=== PATIENT | female | born 1980 | race American Indian/Alaskan Native ===

== ENCOUNTER 2016-10-25 01:23 | Inpatient (IN) | payer MEDICAID ==
[2016-10-25] MEDS ORDERED: LACTATED RINGERS 500 ML IV ONE (02:08)
[2016-10-25 02:30] LABS: Bacteria,Urine 1+ /HPF (Negative); Bilirubin,Urine NEG (Negative); Blood,Urine MOD (Negative); Ketones,Urine NEG (Negative); Leukocyte Esterase,Urine NEG (Negative); Mucus,Urine FEW /HPF; Nitrite,Urine NEG (Negative)
[2016-10-25 03:44] LABS: Hematocrit 25.7 % (30.3-42.9); Hemoglobin 8.6 gm/dl (10.1-14.3); Mean Corpuscular HGB Conc 33 % (30-34); Mean Corpuscular Hemoglobin 34 pg (28-32); Mean Corpuscular Volume 100 fl (79-97); Red Blood Count 2.56 M/mm3 (3.65-5.03); Red Cell Distribution Width 15.5 % (13.2-15.2); White Blood Count 8.8 K/mm3 (4.5-11.0)
[2016-10-25 03:58] LABS: Alanine Aminotransferase 7 units/L (7-56)
[2016-10-25 04:13] LABS: Platelet Count 95 K/mm3 (140-440)
[2016-10-25 04:23] LABS: Lactate Dehydrogenase 159 units/L (91-180); Uric Acid 4.4 mg/dL (3.5-7.6)
[2016-10-25 06:51] LABS: Urine Drugs of Abuse Note Disclamer
[2016-10-25] MEDS ORDERED: LACTATED RINGERS 1,000 ML ONE (07:29)
[2016-10-25] MEDS ORDERED: MAGNESIUM SULFATE 4GM/100ML 100 ML IV ONE ×2 (07:30→07:41)
[2016-10-25] MEDS ORDERED: MAGNESIUM SULFATE 40GM/1000ML 1,000 ML IV ONE (07:30)
[2016-10-25] MEDS ORDERED: NORMODYNE IV PRN (07:41)
[2016-10-25] MEDS ORDERED: MILK OF MAGNESIA PO PRN (07:41)
[2016-10-25] MEDS ORDERED: ZOFRAN IV PRN (07:41)
[2016-10-25] MEDS ORDERED: APRESOLINE IV PRN (07:41)
[2016-10-25] MEDS ORDERED: MAGNESIUM SULFATE 40GM/1000ML 1,000 ML IV SCH (07:41)
[2016-10-25] MEDS ORDERED: MYLICON PO PRN (07:41)
[2016-10-25] MEDS ORDERED: DEEP SEA NS PRN (07:41)
[2016-10-25] MEDS ORDERED: TUCKS PAD TP PRN (07:41)
[2016-10-25] MEDS ORDERED: COLACE PO PRN (07:41)
[2016-10-25] MEDS ORDERED: ALUM-MAG HYDROX-SIMETH 200-200-20MG/5ML PO PRN (07:41)
[2016-10-25] MEDS ORDERED: AMBIEN PO PRN ×2 (07:41→11:40)
[2016-10-25] MEDS ORDERED: LACTATED RINGERS 1,000 ML IV SCH (07:41)
--- NOTE | 2016-10-25 07:50 | History and Physical Report ---
History of Present Illness Date of examination: 10/25/16 Chief complaint: IUP@28 weeks, elevated BP's w/ HTN, KONG, AMA History of present illness: Past History : 9 Term Births: 5 Living Children: 5 Para: 5 Aborta: 2 Elect. Ab: 1 Spont. Ab: 1 # 1 Delivery date: 1994 Weeks Gestation: ft labor: no Delivery type: Infant Sex: Male Comments: 7-6 # 2 Delivery date: 1997 Weeks Gestation: ft labor: no Delivery type: Sex: Female weight: 7-15 # 3 Delivery date: 1997 Delivery type: EAB # 4 Delivery date: 2000 Weeks Gestation: ft labor: no Delivery type: Sex: Male weight: 7-2 Comments: SC trait # 5 Delivery date: 2002 Weeks Gestation: 16 Delivery type: SAB Comments: measured 10 wks, +D&C # 6 Delivery date: 2003 Weeks Gestation: ft Delivery type: Sex: Male weight: 6-8 # 7 Delivery date: 2006 Weeks Gestation: ft labor: no Delivery type: Infant Sex: Male weight: 6-4 #8 SAB Past Medical History: Hypertension-tx with Lisinopril 10mg in past, not on now, did not like Past Surgical History: negative Past Medical History Anesthesia Complications: negative Anemia: negative Autoimmune Disorder: negative Bleeding Disorder: negative Blood Transfusions: negative Breast Disease: negative Diabetes: negative Heart Disease: negative Hypertension: positive Hepatitis/Liver Disease: negative Kidney Disease/UTI: negative Neurologic/Epilepsy/Migraines: negative Phlebitis/Varicosities: negative Psychiatric: negative Pulmonary Disease/Asthma: negative Thyroid Disease: negative Hospitalizations: negative Surgery (Non-powder loader): negative Abnormal PAP: negative ROSSI Exposure: negative Infertility: negative Uterine Anomaly: negative Uterine Surgery (not C/S): negative Other Gynecologic Problems: negative Social Hx: Patient is +smoker no e/d Infection History Hx of STD: chlamydia HIV Risk Eval: low risk Hepatitis B Risk Eval: low risk Personal hx. of genital herpes: no Partner hx. of genital herpes: no Varicella/Chicken Pox Status: Previous Disease TB Risk: no Genetic History ADVANCED MATERNAL AGE Congenital Heart Defect: Mom: no Dad: no Khadra Disease: Mom: no Dad: no Thalassemia Mom: no Dad: no Neural Tube Defect Mom: no Dad: no Down's Syndrome Mom: no Dad: no Humberto-Sachs Mom: no Dad: no Sickle Cell Disease/Trait Mom: no Dad: no Hemophilia Mom: no Dad: no Muscular Dystrophy Mom: no Dad: no Cystic Fibrosis Mom: no Dad: no Doreen Chorea Mom: no Dad: no Mental Retardation Mom: no Dad: no Fragile X Mom: no Dad: no Other Genetic/Chromosomal Disorder Mom: no Dad: no Child w/other defect Mom: no Dad: no Enviromental Exposures Xray Exposure: no Medication, drug, or alcohol use since LMP: yes Chemical/Other Exposure: no Exposure to Cat Liter: no Comments: didn't know Active Medications (reviewed today): None Current Allergies (reviewed today): No known allergies Past History Social history: smoking, other (+marijuana) - Obstetrical History : 9 Medications and Allergies Allergies Allergy/AdvReac Type Severity Reaction Status Date / Time No Known Allergies Allergy Verified 07/12/15 00:20 Home Medications Medication Instructions Recorded Confirmed Last Taken Type Vit-Fe Fumar-FA [ 1 tab PO QDAY 10/25/16 10/25/16 10/24/16 History Vitamin] Active Meds: Active Medications Acetaminophen (Tylenol) 650 mg PO Q4H PRN PRN Reason: Pain MILD(1-3)/Fever >100.5/KONG Al Hydrox/Mg Hydrox/Simethicone (Alum-Mag Hydrox-Simeth [phone]/5ml) 30 ml PO Q6H PRN PRN Reason: Indigestion Betamethasone Acet/Betameth SodPhos (Celestone Soluspan) 12 mg IM Q24HR OLIVIER Stop: 10/26/16 10:01 Docusate Sodium (Colace) 100 mg PO Q12H PRN PRN Reason: Constipation Hydralazine HCl (Apresoline) 5 mg IV Q30MIN PRN PRN Reason: Hypertension Lactated Ringer's (Lactated Ringers) 1,000 mls @ 125 mls/hr IV DIRECT OLIVIER Lactated Ringer's (Lactated Ringers) 1,000 mls @ 125 mls/hr IV DIRECT OLIVIER Magnesium Sulfate (Magnesium Sulfate 40gm/1000ml) 1,000 mls @ 25 mls/hr IV TITR OLIVIER; 1 GM/HR PRN Reason: Protocol Stop: 10/26/16 07:40 Magnesium Sulfate (Magnesium Sulfate 4gm/100ml) 100 mls @ 300 mls/hr IV ONCE ONE Stop: 10/25/16 08:00 Labetalol HCl (Normodyne) 20 mg IV ONCE PRN PRN Reason: Hypertension Stop: 10/25/16 07:42 Magnesium Hydroxide (Milk Of Magnesia) 30 ml PO QHS PRN PRN Reason: Laxative Effect Multivitamins/Iron/Calcium ( Vitamin) 1 each PO QDAY OLIVIER Ondansetron HCl (Zofran) 4 mg IV Q6H PRN PRN Reason: Nausea And Vomiting Simethicone (Mylicon) 80 mg PO Q6H PRN PRN Reason: Gas pain Sodium Chloride (Deep Sea) 2 spray NS Q4H PRN PRN Reason: Congestion Witch Constance/Glycerin (Tucks Pad) 1 each TP PRN PRN PRN Reason: Hemorrhoids Zolpidem Tartrate (Ambien) 5 mg PO QHS PRN PRN Reason: Sleep Review of Systems All systems: negative Constitutional: weight gain Neurological: headaches - Vital Signs Vital signs: Vital Signs Temp Pulse BP 98.7 F 96 H 134/80 10/25/16 01:58 10/25/16 01:58 10/25/16 01:58 Temp Pulse Resp BP Pulse Ox 98.8 F 97 H 18 116/59 100 10/25/16 05:44 10/25/16 07:41 10/25/16 05:44 10/25/16 07:18 10/25/16 07:41 - Physical Exam Breasts: Positive: deferred Cardiovascular: Regular rate Lungs: Positive: Clear to auscultation, Normal air movement Abdomen: Positive: normal appearance, soft, normal bowel sounds. Negative: tenderness Genitourinary (Female): Positive: normal external genitalia Uterus: Positive: normal size Extremities: Positive: normal. Negative: tenderness, edema Deep Tendon Reflex Grade: Normal +2 - Obstetrical FHR: category 1 Uterine Contraction Monitor Mode: External Uterine Contraction Pattern: Absent Results Result Diagrams: 10/25/16 03:11 10/25/16 03:11 Abnormal lab results 10/25/16 10/25/16 Range/Units 03:11 03:11 RBC 2.56 L (3.65-5.03) M/mm3 Hgb 8.6 L (10.1-14.3) gm/dl Hct 25.7 L (30.3-42.9) % MCV 100 H (79-97) fl MCH 34 H (28-32) pg RDW 15.5 H (13.2-15.2) % Plt Count 95 L (140-440) K/mm3 Creatinine 0.3 L (0.7-1.2) mg/dL All other labs normal. Assessment and Plan - Patient Problems (1) 28 weeks gestation of Current Visit: Yes Status: Acute (2) Hypertension affecting in third trimester Current Visit: Yes Status: Acute Plan to address problem: MFM consult Celestone 24hr urine NICU consult MgSO4 for neuroprotection (3) Thrombocytopenia affecting , antepartum Current Visit: Yes Status: Acute (4) Marijuana smoker, episodic Current Visit: Yes Status: Acute (5) Smoker Current Visit: Yes Status: Acute Plan to address problem: Encouraged to stop smoking (6) AMA (advanced maternal age) multigravida 35+ Current Visit: Yes Status: Acute Plan to address problem: Instructed to stop using marijuana (7) Proteinuria affecting in third trimester Current Visit: Yes Status: Chronic Plan to address problem: TP in 10/03/2016=802mg/24hr
[2016-10-25] MEDS ORDERED: CELESTONE SOLUSPAN IM SCH (10:00)
[2016-10-25] MEDS: PRENATAL VITAMIN PO SCH (10:00)
[2016-10-25] MEDS: TYLENOL PO PRN (14:00)
[2016-10-25] MEDS: LACTATED RINGERS 1,000 ML IV SCH (17:54)
--- NOTE | 2016-10-25 19:00 | Event Note ---
Date: 10/25/16 Pt seen by and current recommendations are as follows: 1)d/c magnesium sulfate 2)complete 24 hr urine 3)dx of superimposed pre E 4)Sono for EFW- ordered by has not been done yet. Full consult to follow. Orders noted on the chart.
[2016-10-25 19:17] LABS: Hematocrit 30.2 % (30.3-42.9); Hemoglobin 10.3 gm/dl (10.1-14.3); Mean Corpuscular HGB Conc 34 % (30-34); Mean Corpuscular Hemoglobin 34 pg (28-32); Mean Corpuscular Volume 101 fl (79-97); Platelet Count 105 K/mm3 (140-440); White Blood Count 8.6 K/mm3 (4.5-11.0)
[2016-10-26] MEDS: TYLENOL PO PRN (01:00)
[2016-10-26] MEDS: LACTATED RINGERS 1,000 ML IV SCH (04:11)
--- NOTE | 2016-10-26 09:27 | Progress Note ---
Assessment and Plan A: 1. 28 5/7 weeks gestation 2. Chronic HTN w/ super-imposed pre-eclampsia ( repeat 24 hr urine TP 1248mg/dl) 3. Anemia 4. Thrombocytopenia ( Plt count 10/03/2016 167,000 -> 10/25/2016 105,000 ) 4. AMA 5. Tobacco use Recommendations 1. US report is pending 2. No current indication for BP meds 3. If the maternal and status is reassuring , consider outpatient weekly testing 4. Delivery is recommended no later than 37 weeks gestation , advised that a sooner delivery may be indicated if there is a change in the maternal/ status 5. Potential maternal and complications associated with superimposed preeclampsia , need for close surveillance and possible delivery was discussed.Preeclampsia precautions and kick count instructions were reviewed. All questions were answered and she stated understanding . 6. Iron replacement therapy 7. Weekly CBC , CMP Next appt at [facility] is 11/02/2016 @ 1115am Subjective - Subjective Date of service: 10/26/16 Principal diagnosis: IUP at 28 5/7 weeks gestation , CHTN with superimposed preeclampsia Interval history: She has no complaints Denied KONG visual changes CP RUQ pain, decreased or absent FM, LOF , contractions ,bleeding Patient reports: new complaints Objective - Vital Signs Vital Signs: Vital Signs - 12hr 10/25/16 10/25/16 10/25/16 21:17 21:41 22:42 Temperature Pulse Rate 86 93 H 90 Pulse Rate [ From Monitor] Respiratory Rate Blood Pressure 138/84 137/84 139/71 Blood Pressure [Left Arm] O2 Sat by Pulse Oximetry 10/25/16 10/26/16 10/26/16 23:40 00:41 01:40 Temperature Pulse Rate 85 93 H 81 Pulse Rate [ From Monitor] Respiratory Rate Blood Pressure 120/65 143/91 116/67 Blood Pressure [Left Arm] O2 Sat by Pulse Oximetry 10/26/16 10/26/16 10/26/16 02:51 03:40 07:57 Temperature Pulse Rate 80 79 84 Pulse Rate [ From Monitor] Respiratory Rate Blood Pressure 104/57 114/65 130/81 Blood Pressure [Left Arm] O2 Sat by Pulse Oximetry 10/26/16 10/26/16 09:05 09:07 Temperature 97.5 F L Pulse Rate 80 Pulse Rate [ 60 From Monitor] Respiratory 18 Rate Blood Pressure 152/86 Blood Pressure 130/81 [Left Arm] O2 Sat by Pulse 98 Oximetry - Exam Narrative Exam: laying in bed NAD , A&O x 3 Abdomen: Present: normal appearance, soft (non tender no palpable contractions ) Extremities: normal (no c/c/e) - Labs Labs: Abnormal Labs 10/25/16 10/25/16 10/25/16 03:11 03:11 12:45 RBC 2.56 L Hgb 8.6 L Hct 25.7 L MCV 100 H MCH 34 H RDW 15.5 H Plt Count 95 L Creatinine 0.3 L Magnesium 3.1 H Ur Total Protein 24 Hr Urine Total Protein 10/25/16 10/26/16 18:45 05:15 RBC 3.00 L Hgb Hct 30.2 L MCV 101 H MCH 34 H RDW 16.0 H Plt Count 105 L Creatinine Magnesium Ur Total Protein 24 Hr 1248.00 H Urine Total Protein 32 H Laboratory Results - last 24 hr 10/25/16 10/25/16 10/25/16 01:50 08:16 12:45 WBC RBC Hgb Hct MCV MCH MCHC RDW Plt Count Magnesium 3.1 H Urine Total Volume Ur Total Protein 24 Hr Urine Total Protein Urine Opiates Screen Presumptive negative Urine Methadone Screen Presumptive negative Ur Barbiturates Screen Presumptive negative Ur Phencyclidine Scrn Presumptive negative Ur Amphetamines Screen Presumptive negative U Benzodiazepines Scrn Presumptive negative Urine Cocaine Screen Presumptive negative U Marijuana (THC) Screen Presumptive positive Drugs of Abuse Note Disclamer Antibody Screen Negative 10/25/16 10/26/16 18:45 05:15 WBC 8.6 RBC 3.00 L Hgb 10.3 Hct 30.2 L MCV 101 H MCH 34 H MCHC 34 RDW 16.0 H Plt Count 105 L Magnesium Urine Total Volume 3900 Ur Total Protein 24 Hr 1248.00 H Urine Total Protein 32 H Urine Opiates Screen Urine Methadone Screen Ur Barbiturates Screen Ur Phencyclidine Scrn Ur Amphetamines Screen U Benzodiazepines Scrn Urine Cocaine Screen U Marijuana (THC) Screen Drugs of Abuse Note Antibody Screen - Results US- obstetric: pending, image reviewed (SIUP , Cephalic FHR 148bpm EFW 1219gm ( 58%), ant placenta no previa , BPP 8/8)
[2016-10-26] MEDS: PRENATAL VITAMIN PO SCH (10:00)
--- NOTE | 2016-10-26 13:09 | Progress Note ---
Assessment and Plan - Patient Problems (1) 28 weeks gestation of Current Visit: Yes Status: Acute Plan to address problem: 1. US report is pending Preliminary report reviewed 2. No current indication for BP meds 3. If the maternal and status is reassuring , consider outpatient weekly testing 4. Delivery is recommended no later than 37 weeks gestation , advised that a sooner delivery may be indicated if there is a change in the maternal/ status 5. Potential maternal and complications associated with superimposed preeclampsia , need for close surveillance and possible delivery was discussed.Preeclampsia precautions and kick count instructions were reviewed. All questions were answered and she stated understanding . 6. Iron replacement therapy 7. Weekly CBC , CMP (2) Pre-eclampsia superimposed on chronic hypertension, antepartum Current Visit: Yes Status: Acute Plan to address problem: Recheck labs today, possibly allow home if stable ACOG FAQ's sheet given:Preeclampsia and High Blood Pressure During (3) Thrombocytopenia affecting , antepartum Current Visit: Yes Status: Acute (4) Marijuana smoker, episodic Current Visit: Yes Status: Acute Plan to address problem: Instructed to stop using marijuana ACOG FAQ's sheet given:Tobacco, Alcohol, Drugs, and (5) Smoker Current Visit: Yes Status: Acute Plan to address problem: Hazards of smoking and reviewed; smoking cessation strongly encouraged and smoking cessation techniques reviewed. (6) AMA (advanced maternal age) multigravida 35+ Current Visit: Yes Status: Acute Subjective - Subjective Date of service: 10/26/16 Principal diagnosis: IUP at 28 5/7 weeks gestation , CHTN with mild PreE, low plts Interval history: Patient resting in bed, no complaints Patient reports: movement normal, no new complaints, no loss of fluid, no vaginal bleeding, no contractions Objective - Vital Signs Vital Signs: Vital Signs - 12hr 10/26/16 10/26/16 10/26/16 01:40 02:51 03:40 Temperature Pulse Rate 81 80 79 Pulse Rate [ From Monitor] Respiratory Rate Blood Pressure 116/67 104/57 114/65 Blood Pressure [Left Arm] O2 Sat by Pulse Oximetry 10/26/16 10/26/16 10/26/16 07:57 09:05 09:07 Temperature 97.5 F L Pulse Rate 84 80 Pulse Rate [ 60 From Monitor] Respiratory 18 Rate Blood Pressure 130/81 152/86 Blood Pressure 130/81 [Left Arm] O2 Sat by Pulse 98 Oximetry 10/26/16 10/26/16 10/26/16 09:40 10:41 11:42 Temperature Pulse Rate 80 90 97 H Pulse Rate [ From Monitor] Respiratory Rate Blood Pressure 147/85 147/91 141/104 Blood Pressure [Left Arm] O2 Sat by Pulse Oximetry 10/26/16 10/26/16 10/26/16 12:29 12:32 12:40 Temperature Pulse Rate 86 94 H Pulse Rate [ From Monitor] Respiratory Rate Blood Pressure 135/79 143/86 Blood Pressure 135/77 [Left Arm] O2 Sat by Pulse Oximetry - Exam Breasts: deferred Cardiovascular: Regular rate Lungs: Clear to auscultation, Normal air movement Abdomen: Present: normal appearance, soft FHR: category 1 Uterine Contraction Monitor Mode: External - Labs Labs: Abnormal Labs 10/25/16 10/25/16 10/25/16 03:11 03:11 12:45 RBC 2.56 L Hgb 8.6 L Hct 25.7 L MCV 100 H MCH 34 H RDW 15.5 H Plt Count 95 L Creatinine 0.3 L Magnesium 3.1 H Ur Total Protein 24 Hr Urine Total Protein 10/25/16 10/26/16 18:45 05:15 RBC 3.00 L Hgb Hct 30.2 L MCV 101 H MCH 34 H RDW 16.0 H Plt Count 105 L Creatinine Magnesium Ur Total Protein 24 Hr 1248.00 H Urine Total Protein 32 H Laboratory Results - last 24 hr 10/25/16 10/25/16 10/26/16 12:45 18:45 05:15 WBC 8.6 RBC 3.00 L Hgb 10.3 Hct 30.2 L MCV 101 H MCH 34 H MCHC 34 RDW 16.0 H Plt Count 105 L Magnesium 3.1 H Urine Total Volume 3900 Ur Total Protein 24 Hr 1248.00 H Urine Total Protein 32 H
[2016-10-26 13:50] LABS: Hematocrit 28.8 % (30.3-42.9); Hemoglobin 9.6 gm/dl (10.1-14.3); Mean Corpuscular HGB Conc 33 % (30-34); Mean Corpuscular Hemoglobin 33 pg (28-32); Mean Corpuscular Volume 99 fl (79-97); Platelet Count 100 K/mm3 (140-440); Red Blood Count 2.91 M/mm3 (3.65-5.03); Red Cell Distribution Width 15.5 % (13.2-15.2); White Blood Count 6.1 K/mm3 (4.5-11.0)
[2016-10-26] MEDS ORDERED: CELESTONE SOLUSPAN IM ONE (14:00)
[2016-10-26 14:20] LABS: Alanine Aminotransferase 9 units/L (7-56)
--- NOTE | 2016-10-26 16:01 | Ultrasound Report ---
OB ULTRASOUND: Transabdominal imaging. Gestation: gusman Position: cephalic Amniotic Fluid: WNL (7-24 cm) CRISTINA = 18.8 cm Placenta: anterior Placental Grade: I Heart Rate: 148 BPM Cervical length: 3.2 cm (Normal > 3 cm) NEUROANATOMY VISUALIZED: Choroid Plexus Lateral Ventricle ANATOMY VISUALIZED: Kidneys Bladder 4 Chamber Heart Heart 3 Vessel Cord Abd. Cord Insert SPINE VISUALIZED: Longitudinal Transverse The following are not demonstrated due to maternal body habitus or lie: stomach and diaphragm. BPD: 7.1 cm = 28 w 4 d HC: 26.8 cm = 29 w 1 d AC: 23.8 cm = 28 w 1 d FL: 5.4 cm = 28 w 4 d HC/AC Ratio: 1.12 Cephalic Index: 81.4 Estimated Weight: 1219 grams Clinical age = 28 w 4 d EDC: 01-13-17 US Gest. Age = 28 w 4 d EDC: 01-13-17 COMMENT: No gestational abnormality identified. BIOPHYSICAL PROFILE: 2 - breathing movements 2 - movements 2 - posture and tone 2 - Qualitative amniotic fluid volume 8 - TOTAL SCORE OF POSSIBLE 8 Heart Rate (bpm) 148
--- NOTE | 2016-10-26 17:24 | Event Note ---
Date: 10/26/16 Patient now states she has no where to live, her current living situation is not working. a p manager consult ordered
[2016-10-26 21:43] LABS: Lactate Dehydrogenase 213 units/L (91-180); Uric Acid 5.3 mg/dL (3.5-7.6)
--- NOTE | 2016-10-27 09:20 | Discharge Summary ---
Providers - Providers Date of Admission: 10/25/16 06:49 Date of discharge: 10/27/16 Attending physician: EVY ASHER 10/25/16 07:48 Consult to Physician [CONS] Routine Consulting Provider: BRIAN LORENZO Reason For Exam: chtn, KONG with low platlets Place consult to:: [facility] Notified:: OFFICE Phone number called:: [phone] Was contact made?: Yes If yes, spoke with:: Talia 10/25/16 08:05 Consult to Physician [CONS] Routine Consulting Provider: ARPIT TURNER Reason For Exam: CHTN @ [address] consult to:: NICU consult Notified:: GODWIN Was contact made?: Yes If yes, spoke with:: Madison hamm, spoke with JANIS Freeman in NICU Time called:: 08:06 10/26/16 17:24 Consult to Case Management [CONS] Routine 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 Primary care physician: EVY ASHER Hospitalization Reason for admission: observation (CHTN with superimposed pre-e, mild) Discharge diagnosis: other (HTN with wuperimposed pre-eclampsia) Condition at discharge: Good Disposition: DISCHARGED TO HOME OR SELFCARE - Discharge Diagnoses (1) 28 weeks gestation of Status: Acute (2) AMA (advanced maternal age) multigravida 35+ Status: Acute (3) Marijuana smoker, episodic Status: Acute (4) Pre-eclampsia superimposed on chronic hypertension, antepartum Status: Acute (5) Smoker Status: Acute (6) Thrombocytopenia affecting , antepartum Status: Acute (7) Proteinuria affecting in third trimester Status: Chronic Plan - Provider Discharge Summary Activity: routine Instructions: routine Additional instructions: [] Smoking cessation referral if applicable(refer to patient education folder for contact #) [] Refer to [facility] Book[facility] Call your doctor immediately for: * Fever > 100.5 * Heavy vaginal bleeding ( >1 pad per hour) * Severe persistent headache * Shortness of breath * Reddened, hot, painful area to leg or breast - Follow up plan Follow up: EVY ASHER MD [Primary Care Provider] - 10/30/16 11:15 am (An appointment as been made for you in our [place] office for October 30 @ 11:15AM. Please report an headache, change in vision or upper abdominal pain. Keep next scheduled appointment with [facility]. ) Forms: [facility] Discharge Summary
[2016-10-27 09:36] VITALS: BP 147/83
== END 2016-10-27 09:30 | disposition home or self-care (01) | DRG 781 ==
LOC: TRG 01:23 → LD 05:12 → TRG 06:49
PROVIDERS: ADMIT Obstetrics & Gynecology; ATTEND Obstetrics & Gynecology
DX: O11.3 Pre-existing hypertension with pre-eclampsia, third trimester (principal); O09.523 Supervision of elderly multigravida, third trimester; O99.113 Other diseases of the blood and blood-forming organs and certain disorders involving the immune mechanism complicating pregnancy, third trimester; O99.333 Smoking (tobacco) complicating pregnancy, third trimester; F17.290 Nicotine dependence, other tobacco product, uncomplicated; F12.90 Cannabis use, unspecified, uncomplicated; D69.6 Thrombocytopenia, unspecified; F17.200 Nicotine dependence, unspecified, uncomplicated; Z3A.28 28 weeks gestation of pregnancy; O99.323 Drug use complicating pregnancy, third trimester; O10.913 Unspecified pre-existing hypertension complicating pregnancy, third trimester
CPT/HCPCS: 36415; 76805; 76819; 80307; 81001; 82565; 83615; 83735; 84156; 84450; 84460; 84550; 85027; 86850; 86900; 86901; J0702; J3475; J7120

== ENCOUNTER 2016-11-18 03:47 | Inpatient (IN) | payer MEDICAID ==
[2016-11-18] MEDS ORDERED: LACTATED RINGERS 500 ML IV ONE (04:20)
[2016-11-18 05:01] LABS: Bacteria,Urine 4+ /HPF (Negative); Bilirubin,Urine NEG (Negative); Blood,Urine MOD (Negative); Ketones,Urine NEG (Negative); Leukocyte Esterase,Urine NEG (Negative); Mucus,Urine FEW /HPF; Nitrite,Urine NEG (Negative); Urobilinogen,Urine < 2.0 mg/dL (<2.0)
[2016-11-18 06:21] LABS: Hematocrit 28.4 % (30.3-42.9); Hemoglobin 9.7 gm/dl (10.1-14.3); Mean Corpuscular HGB Conc 34 % (30-34); Mean Corpuscular Hemoglobin 34 pg (28-32); Mean Corpuscular Volume 101 fl (79-97); Red Blood Count 2.82 M/mm3 (3.65-5.03); Red Cell Distribution Width 16.4 % (13.2-15.2); White Blood Count 10.9 K/mm3 (4.5-11.0)
[2016-11-18 06:29] LABS: Platelet Count 86 K/mm3 (140-440)
[2016-11-18 06:58] LABS: Alanine Aminotransferase 7 units/L (7-56)
[2016-11-18 07:59] LABS: Lactate Dehydrogenase 315 units/L (91-180); Uric Acid 5.7 mg/dL (3.5-7.6)
[2016-11-18] MEDS ORDERED: COLACE PO PRN (10:23)
[2016-11-18] MEDS ORDERED: ZOFRAN IV PRN (10:23)
[2016-11-18] MEDS ORDERED: MILK OF MAGNESIA PO PRN (10:23)
[2016-11-18] MEDS ORDERED: ALUM-MAG HYDROX-SIMETH 200-200-20MG/5ML PO PRN (10:23)
--- NOTE | 2016-11-18 10:23 | History and Physical Report ---
History of Present Illness Date of examination: 11/18/16 Date of admission: 11/18/2016 Chief complaint: 36 yo A3 at 32 weeks EGA who came to L&D for "high blood pressure" at home. She has been followed with social issues (homeless?) and CHTN with superimposed PreE based on a 24 hr urine done previously and known thrombocytopenia. She appears to have a UTI today and has a sore back from driving all the way back from [place]. She has no other complaints and no s/sx of Pre Eclampsia Will repeat 24 hour urine with Walker catheter (since last one done without one I believe) Her BP is fine here, has UTI but platelet count is 86,000 Received 2 doses of steroids 10/25-10/26 History of present illness: 1. 32 weeks 0 days EGA 2. Chronic HTN w/ super-imposed pre-eclampsia ( lasty 24 hr urine TP 1248mg/dl) 3. Anemia 4. Thrombocytopenia ( Plt count 10/03/2016 167,000 -> 10/25/2016 105,000 --> 86,000 ) 4. AMA 5. Tobacco use Remainder of Hx from MPV Vital Signs Height: 67 in. Weight (lb): 160 BMI: 25.1 BP: 122/ 76 mm Hg Ur. Protein: negative Ur. 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 no EDC Calculations LMP: 04/08/16 yields EDC of 01/13/2017 Initial exam (date): 06/14/2016 = 10 Exam: 01/10/2017 EDC Confirmation: 01/13/2017 Gestational Age: 9 4/7 weeks LMP: 01/13/2017 EDC Confirmation: 01/13/2017 Past History : 9 Term Births: 5 Living Children: 5 Para: 5 Aborta: 2 Elect. Ab: 1 Spont. Ab: 1 Ectopics: 1 # 1 Delivery date: 1994 Weeks Gestation: ft labor: no Delivery type: Sex: Male Comments: 7-6 # 2 Delivery date: 1997 Weeks Gestation: ft labor: no Delivery type: Sex: Female weight: 7-15 # 3 Delivery date: 1997 Delivery type: EAB # 4 Delivery date: 2000 Weeks Gestation: ft labor: no Delivery type: Sex: Male weight: 7-2 Comments: SC trait # 5 Delivery date: 2002 Weeks Gestation: 16 Delivery type: SAB Comments: measured 10 wks, +D&C # 6 Delivery date: 2003 Weeks Gestation: ft Delivery type: Infant Sex: Male weight: 6-8 # 7 Delivery date: 2006 Weeks Gestation: ft labor: no Delivery type: Infant Sex: Male weight: 6-4 # 8 Delivery date: 05/15/2012 Delivery type: SAB Past History : 9 Ectopics: 1 # 8 Delivery date: 05/15/2012 Delivery type: SAB Past Medical History: Hypertension-tx with Lisinopril 10mg in past, not on now, did not like Past Surgical History: negative Past Medical History Anesthesia Complications: negative Anemia: negative Autoimmune Disorder: negative Bleeding Disorder: negative Blood Transfusions: negative Breast Disease: negative Diabetes: negative Heart Disease: negative Hypertension: positive Hepatitis/Liver Disease: negative Kidney Disease/UTI: negative Neurologic/Epilepsy/Migraines: negative Phlebitis/Varicosities: negative Psychiatric: negative Pulmonary Disease/Asthma: negative Thyroid Disease: negative Hospitalizations: negative 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 of genital herpes: no Partner hx. of genital herpes: no Varicella/Chicken Pox Status: Previous Disease TB Risk: no Genetic History ADVANCED MATERNAL AGE Congenital Heart Defect: Mom: no Dad: no Khadra Disease: Mom: no Dad: no Thalassemia Mom: no Dad: no Neural Tube Defect Mom: no Dad: no Down's Syndrome Mom: no Dad: no Humberto-Sachs Mom: no Dad: no Sickle Cell Disease/Trait Mom: no Dad: no Hemophilia Mom: no Dad: no Muscular Dystrophy Mom: no Dad: no Cystic Fibrosis Mom: no Dad: no Doreen Chorea Mom: no Dad: no Mental Retardation Mom: no Dad: no Fragile X Mom: no Dad: no Other Genetic/Chromosomal Disorder Mom: no Dad: no Child w/other defect Mom: no Dad: no Enviromental Exposures Xray Exposure: no Medication, drug, or alcohol use since LMP: yes Chemical/Other Exposure: no Exposure to Cat Liter: no Comments: didn't know Active Medications (reviewed today): None Current Allergies (reviewed today): No known allergies Laboratory Results Routine Urinalysis Leukocytes: negative Nitrite: negative Urobilinogen: negative Protein: negative Blood: negative Ketone: negative Bilirubin: negative Glucose: negative Urine HCG: positive Review of Systems General Denies fever, chills, sweats, anorexia, fatigue, weakness, malaise, weight loss and sleep disorder. Denies nausea, vomiting, headache, swelling of legs, abdominal pain, vaginal discharge, vaginal bleeding and contractions. Denies vaginal discharge, incontinence, dysuria, hematuria, urinary frequency, amenorrhea, menorrhagia, abnormal vaginal bleeding, pelvic pain, genital sores, decreased libido, painful periods, painful sex, urinary urgency, hot flashes, vaginal dryness, vaginal itching and vaginal odor. CV Denies chest pains, palpitations, syncope, dyspnea on exertion, orthopnea, PND and peripheral edema. Resp Denies cough, dyspnea at rest, excessive sputum, hemoptysis, wheezing and pleurisy. GI Denies nausea, vomiting, diarrhea, constipation, change in bowel habits, abdominal pain, melena, hematochezia, jaundice, gas/bloating, indigestion/ heartburn, dysphagia and odynophagia. Endo Denies cold intolerance, heat intolerance, polydipsia, polyphagia, polyuria and unusual weight change. Breast Denies left breast lump, right breast lump, nipple discharge, bloody discharge from nipple, breast pain, abnormal mammogram and breast enlargement. MS Denies back pain, joint pain, joint swelling, muscle cramps, muscle weakness, stiffness, arthritis, sciatica, restless legs, leg pain at night and leg pain with exertion. Derm Denies rash, itching, dryness and suspicious lesions. Neuro Denies paralysis, paresthesias, headache, seizures, tremors, vertigo, transient blindness, frequent falls, frequent headaches and difficulty walking. Psych Denies depression, anxiety, irritability and mood swings. Eyes Denies blurring, diplopia, irritation, discharge, vision loss, eye pain and photophobia. ENT Denies earache, ear discharge, tinnitus, decreased hearing, nasal congestion, nosebleeds, sore throat and hoarseness. Allergy Denies urticaria, allergic rash, hay fever and recurrent infections. Heme Denies abnormal bruising, bleeding and enlarged lymph nodes. PHYSICAL EXAM HEENT: PERRLA, normal conjunctiva, external nose and nasal mucosa normal, oropharynx clear Neck/Thyroid: supple, thyroid normal Skin no significant abnormal lesions or rashes Chest: respiratory effort normal, clear to auscultation Breasts: normal without skin changes or masses CV: regular, normal S1-S2, no murmur, no rub, no gallop Abdomen: normal bowel sounds, soft, nontender, no HSM Musculoskeletal: grossly normal ROM in joints, no joint tenderness or muscle weakness Neuro: grossly normal DTRs, sensation, strength, cranial nerves Extremities: no clubbing, cyanosis, or edema LIFE MANAGER Exams Vulva/Vagina: No lesions, normal BUS, normal rugae Cervix: No lesions; no cervical motion tenderness Uterus: normal size and position, midline, mobile 10 wk size, can't hear FHT Adnexae: no masses or tenderness Rectovaginal: no masses or tenderness Flowsheet View for Follow-up Visit Estimated weeks of gestation: 9 4/7 Weight: 160 Blood pressure: 122 / 76 Urine protein: negative Urine glucose: negative Urine nitrite: negative Past History - Obstetrical History : 9 Medications and Allergies Allergies Allergy/AdvReac Type Severity Reaction Status Date / Time No Known Allergies Allergy Verified 07/12/15 00:20 Home Medications Medication Instructions Recorded Confirmed Last Taken Type Vit-Fe Fumar-FA [ 1 tab PO QDAY 10/25/16 10/25/16 10/24/16 History Vitamin] - Vital Signs Vital signs: Vital Signs Pulse BP 92 H 133/79 11/18/16 04:10 11/18/16 04:10 Temp Pulse Resp BP Pulse Ox 77 140/73 11/18/16 10:11 11/18/16 10:11 - Physical Exam Breasts: Positive: deferred Cardiovascular: Regular rate, Normal S1, No murmurs Lungs: Positive: Clear to auscultation, Normal air movement Abdomen: Positive: normal appearance, soft. Negative: distention, tenderness Extremities: Positive: normal. Negative: edema Deep Tendon Reflex Grade: Dull/Diminished +1 - Obstetrical FHR: auscultation normal Uterine Contraction Pattern: Absent Results Result Diagrams: 11/18/16 05:15 11/18/16 05:15 Abnormal lab results 11/18/16 11/18/16 Range/Units 05:15 05:15 RBC 2.82 L (3.65-5.03) M/mm3 Hgb 9.7 L (10.1-14.3) gm/dl Hct 28.4 L (30.3-42.9) % MCV 101 H (79-97) fl MCH 34 H (28-32) pg RDW 16.4 H (13.2-15.2) % Plt Count 86 L (140-440) K/mm3 Creatinine 0.3 L (0.7-1.2) mg/dL Lactate Dehydrogenase 315 H (91-180) units/L All other labs normal. Assessment and Plan - Patient Problems (1) 32 weeks gestation of Current Visit: Yes Status: Acute (2) Pre-eclampsia superimposed on chronic hypertension, antepartum Current Visit: No Status: Acute (3) Thrombocytopenia affecting , antepartum Current Visit: No Status: Acute (4) Proteinuria affecting in third trimester Current Visit: No Status: Chronic (5) AMA (advanced maternal age) multigravida 35+ Current Visit: No Status: Acute Qualifiers: Trimester: T
[2016-11-18] MEDS: LACTATED RINGERS 1,000 ML IV SCH ×2 (13:37→22:14)
[2016-11-18] MEDS: ceFAZolin 2 GM in NACL 0.9% 100 ML IV SCH ×2 (13:40→22:14)
[2016-11-18] MEDS ORDERED: NARCAN 2 MG/2 ML ONE (17:32)
[2016-11-19] MEDS: LACTATED RINGERS 1,000 ML IV SCH ×2 (06:03→16:17)
[2016-11-19] MEDS: ceFAZolin 2 GM in NACL 0.9% 100 ML IV SCH ×2 (06:05→16:27)
[2016-11-19 09:07] LABS: Hematocrit 27.2 % (30.3-42.9); Mean Corpuscular HGB Conc 33 % (30-34); Mean Corpuscular Hemoglobin 34 pg (28-32); Mean Corpuscular Volume 102 fl (79-97); Red Blood Count 2.67 M/mm3 (3.65-5.03); White Blood Count 9.4 K/mm3 (4.5-11.0)
[2016-11-19 09:17] LABS: Platelet Count 80 K/mm3 (140-440)
[2016-11-19] MEDS: PRENATAL VITAMIN PO SCH (10:20)
--- NOTE | 2016-11-19 10:33 | Event Note ---
Date: 11/19/16 Hosp Day 2--24 hr urine with weller in place will be finished at 1530 today. She is 36 yo A3 at 32 weeks +1d EGA who is supposedly chronic hypertension with superimposed preE and previously dx thrombocytopenia Since admission this patient, on no meds, has had normal to low BP except for 2 outliers which were slightly elevated. I am repeating her 24 hour urine protein because I believe that the first one may have been falsely elevated--due to no weller. Repeat platelet count is 80K, yesterday was 86K. Fetus looks good with normal tracing, no labor and BPP 8/8. Do not think that delivery is indicated at this moment. UTI will be adequately treated by tomorrow and results from 24 hr protein will be available.
--- NOTE | 2016-11-19 12:43 | Ultrasound Report ---
BIOPHYSICAL PROFILE: 2 - breathing movements 2 - movements 2 - posture and tone 2 - Qualitative amniotic fluid volume 8 - TOTAL SCORE OF POSSIBLE 8 Heart Rate (bpm) 141
[2016-11-20] MEDS: TYLENOL PO PRN (03:55)
[2016-11-20 06:43] LABS: Hematocrit 26.4 % (30.3-42.9); Hemoglobin 8.9 gm/dl (10.1-14.3); Mean Corpuscular HGB Conc 34 % (30-34); Mean Corpuscular Hemoglobin 35 pg (28-32); Mean Corpuscular Volume 102 fl (79-97); Red Blood Count 2.59 M/mm3 (3.65-5.03); Red Cell Distribution Width 16.9 % (13.2-15.2); White Blood Count 10.2 K/mm3 (4.5-11.0)
[2016-11-20 06:50] LABS: Platelet Count 74 K/mm3 (140-440)
--- NOTE | 2016-11-20 06:55 | Progress Note ---
Assessment and Plan Pt states her BP is elevated because she is so uncomfortable in the bed. BP 165/ 95, 131/[address] Castillo aware. IUP @ 32 weeks with PreE CHTN Stable at present P: Continue orders waiting for MD rounds. AMFM consult not available at this time. Will put air mattress on bed Subjective - Subjective Date of service: 11/20/16 (midwife practitioner note) Patient reports: movement normal, other ("My hips hurt from laying in this bed. I want to go home.") Objective - Vital Signs Vital Signs: Vital Signs - 12hr 11/19/16 11/20/16 11/20/16 19:17 03:55 04:03 Temperature 98.5 F 97.3 F L Pulse Rate Pulse Rate [ 77 Right From Monitor] Respiratory 18 18 Rate Blood Pressure Blood Pressure 141/95 [Left Arm] O2 Sat by Pulse 100 Oximetry 11/20/16 11/20/16 11/20/16 04:04 04:08 04:09 Temperature Pulse Rate 75 71 71 Pulse Rate [ Right From Monitor] Respiratory Rate Blood Pressure 141/95 Blood Pressure [Left Arm] O2 Sat by Pulse 100 100 Oximetry 11/20/16 11/20/16 11/20/16 04:14 04:19 04:24 Temperature Pulse Rate 69 71 82 Pulse Rate [ Right From Monitor] Respiratory Rate Blood Pressure Blood Pressure [Left Arm] O2 Sat by Pulse 100 100 100 Oximetry 11/20/16 11/20/16 11/20/16 04:39 05:57 06:32 Temperature Pulse Rate 70 72 72 Pulse Rate [ Right From Monitor] Respiratory Rate Blood Pressure 165/96 131/73 162/97 Blood Pressure [Left Arm] O2 Sat by Pulse Oximetry 11/20/16 06:33 Temperature Pulse Rate 71 Pulse Rate [ Right From Monitor] Respiratory Rate Blood Pressure 134/76 Blood Pressure [Left Arm] O2 Sat by Pulse Oximetry - Exam Breasts: deferred Cardiovascular: Regular rate Lungs: Clear to auscultation, Normal air movement Abdomen: Present: normal appearance, soft. Absent: distention, tenderness Vulva: both: normal Uterus: Present: normal FHR: auscultation normal Uterine Contraction Pattern: Absent Uterine Tone Measurement Phase: Resting Extremities: edema Deep Tendon Reflex Grade: Normal +2 - Labs Labs: Abnormal Labs 11/18/16 11/18/16 11/19/16 05:15 05:15 08:22 RBC 2.82 L 2.67 L Hgb 9.7 L 9.0 L Hct 28.4 L 27.2 L MCV 101 H 102 H MCH 34 H 34 H RDW 16.4 H 17.0 H Plt Count 86 L 80 L Creatinine 0.3 L Lactate Dehydrogenase 315 H Urine Creatinine Ur Total Protein 24 Hr Urine Total Protein 11/19/16 Unknown RBC Hgb Hct MCV MCH RDW Plt Count Creatinine Lactate Dehydrogenase Urine Creatinine 57.5 H Ur Total Protein 24 Hr 1792.00 H Urine Total Protein 64 H Laboratory Results - last 24 hr 11/19/16 11/19/16 08:22 Unknown WBC 9.4 RBC 2.67 L Hgb 9.0 L Hct 27.2 L MCV 102 H MCH 34 H MCHC 33 RDW 17.0 H Plt Count 80 L Urine Total Volume 2800 Urine Creatinine 57.5 H Ur Creatinine 24 Hour 1.6 Ur Total Protein 24 Hr 1792.00 H Urine Total Protein 64 H
[2016-11-20 07:06] LABS: Alanine Aminotransferase 5 units/L (7-56); Albumin 3.1 g/dL (3.9-5); Alkaline Phosphatase 78 units/L (35-129); Anion Gap 17 mmol/L; Bilirubin,Total 0.2 mg/dL (0.1-1.2); Blood Urea Nitrogen 6 mg/dL (7-17); Calcium 8.7 mg/dL (8.4-10.2); Carbon Dioxide 22 mmol/L (22-30); Chloride 101.5 mmol/L (98-107); Glucose 85 mg/dL (65-100); Potassium 3.8 mmol/L (3.6-5.0); Sodium 137 mmol/L (137-145); Total Protein 6.1 g/dL (6.3-8.2)
--- NOTE | 2016-11-20 07:40 | Progress Note ---
Assessment and Plan IMP: 1. IUP 32w2d 2. CHTN w/superimposed preeclampsia (w/severe range BPs) 3. thrombocytopenia, suspected gestational 4. s/p betamethasone 10/25-10/26 REC: 1. Start BP meds if severe range BPs are persistent/recurrent. 2. Would not favor outpt. management at this time as BPs are labile. 3. Recheck platelet count tomorrow, as it has continued to decrease. 4. Twice weekly BPPs. Subjective - Subjective Date of service: 11/20/16 Principal diagnosis: IUP 32w2d, CHTN w/superimposed preeclampsia Patient reports: movement normal, other (States her BP is elevated because she is uncomfortable in the bed.) Objective - Vital Signs Vital Signs: Vital Signs - 12hr 11/20/16 11/20/16 11/20/16 03:55 04:03 04:04 Temperature 97.3 F L Pulse Rate 75 Pulse Rate [ 77 Right From Monitor] Respiratory 18 18 Rate Blood Pressure Blood Pressure 141/95 [Left Arm] O2 Sat by Pulse 100 100 Oximetry 11/20/16 11/20/16 11/20/16 04:08 04:09 04:14 Temperature Pulse Rate 71 71 69 Pulse Rate [ Right From Monitor] Respiratory Rate Blood Pressure 141/95 Blood Pressure [Left Arm] O2 Sat by Pulse 100 100 Oximetry 11/20/16 11/20/16 11/20/16 04:19 04:24 04:39 Temperature Pulse Rate 71 82 70 Pulse Rate [ Right From Monitor] Respiratory Rate Blood Pressure 165/96 Blood Pressure [Left Arm] O2 Sat by Pulse 100 100 Oximetry 11/20/16 11/20/16 11/20/16 05:57 06:32 06:33 Temperature Pulse Rate 72 72 71 Pulse Rate [ Right From Monitor] Respiratory Rate Blood Pressure 131/73 162/97 134/76 Blood Pressure [Left Arm] O2 Sat by Pulse Oximetry 11/20/16 11/20/16 11/20/16 07:04 07:16 07:17 Temperature 97.8 F Pulse Rate 71 72 Pulse Rate [ 71 Right From Monitor] Respiratory 18 Rate Blood Pressure 149/84 Blood Pressure 149/84 [Left Arm] O2 Sat by Pulse 100 100 Oximetry 11/20/16 07:34 Temperature Pulse Rate 71 Pulse Rate [ Right From Monitor] Respiratory Rate Blood Pressure 160/95 Blood Pressure [Left Arm] O2 Sat by Pulse Oximetry - Exam Narrative Exam: Appears well. Abdomen: Present: normal appearance, soft. Absent: tenderness Extremities: normal - Labs Labs: Abnormal Labs 11/18/16 11/18/16 11/19/16 05:15 05:15 08:22 RBC 2.82 L 2.67 L Hgb 9.7 L 9.0 L Hct 28.4 L 27.2 L MCV 101 H 102 H MCH 34 H 34 H RDW 16.4 H 17.0 H Plt Count 86 L 80 L BUN Creatinine 0.3 L ALT Lactate Dehydrogenase 315 H Total Protein Albumin Urine Creatinine Ur Total Protein 24 Hr Urine Total Protein 11/19/16 11/20/16 11/20/16 Unknown 06:00 06:00 RBC 2.59 L Hgb 8.9 L Hct 26.4 L MCV 102 H MCH 35 H RDW 16.9 H Plt Count 74 L BUN 6 L Creatinine 0.3 L ALT 5 L Lactate Dehydrogenase Total Protein 6.1 L Albumin 3.1 L Urine Creatinine 57.5 H Ur Total Protein 24 Hr 1792.00 H Urine Total Protein 64 H Laboratory Results - last 24 hr 11/19/16 11/19/16 11/20/16 08:22 Unknown 06:00 WBC 9.4 10.2 RBC 2.67 L 2.59 L Hgb 9.0 L 8.9 L Hct 27.2 L 26.4 L MCV 102 H 102 H MCH 34 H 35 H MCHC 33 34 RDW 17.0 H 16.9 H Plt Count 80 L 74 L Sodium Potassium Chloride Carbon Dioxide Anion Gap BUN Creatinine Estimated GFR BUN/Creatinine Ratio Glucose Calcium Total Bilirubin AST ALT Alkaline Phosphatase Total Protein Albumin Albumin/Globulin Ratio Urine Total Volume 2800 Urine Creatinine 57.5 H Ur Creatinine 24 Hour 1.6 Ur Total Protein 24 Hr 1792.00 H Urine Total Protein 64 H 11/20/16 06:00 WBC RBC Hgb Hct MCV MCH MCHC RDW Plt Count Sodium 137 Potassium 3.8 Chloride 101.5 Carbon Dioxide 22 Anion Gap 17 BUN 6 L Creatinine 0.3 L Estimated GFR > 60 BUN/Creatinine Ratio 20.00 Glucose 85 Calcium 8.7 Total Bilirubin 0.2 AST 16 ALT 5 L Alkaline Phosphatase 78 Total Protein 6.1 L Albumin 3.1 L Albumin/Globulin Ratio 1.0 Urine Total Volume Urine Creatinine Ur Creatinine 24 Hour Ur Total Protein 24 Hr Urine Total Protein - Results US- obstetric: report reviewed
[2016-11-20] MEDS: PRENATAL VITAMIN PO SCH (12:28)
[2016-11-20] MEDS: NORMODYNE PO SCH ×2 (12:37→22:03)
--- NOTE | 2016-11-20 16:43 | Progress Note ---
Assessment and Plan - Patient Problems (1) 32 weeks gestation of Current Visit: Yes Status: Acute (2) AMA (advanced maternal age) multigravida 35+ Current Visit: No Status: Acute Qualifiers: Trimester: T Plan to address problem: BPs still were still in the severe range so labetalol 200mg bid added today. Will monitor and evaluate for possible adjustments pending response currently no s/sx of pre E bed rest low salt diet-pt had Dorito lindsay at bedside and rafita jacobo and was urged to eat the diet provided as the foods she is currently eating are high in salt and could contribute to elevation in her BP. Pt expressed understanding. (3) Pre-eclampsia superimposed on chronic hypertension, antepartum Current Visit: No Status: Acute Subjective - Subjective Date of service: 11/20/16 (late entry pt seen @ 1248pm) Principal diagnosis: IUP 32w2d, CHTN w/superimposed preeclampsia Interval history: Pt denies any headaches or blurry vision at this time. She does c/o having some social issues for which she is concerned about. Provider was standing at bedside as pt was speaking with medicaid biller. I d/w that she is not d/c at this time due to recommendations by [facility] stating "Would not favor outpt. management at this time as BPs are labile." I d/w starting labetalol at this time as she is not on any medications. Pt expressed understanding. I also d/w pt that she does reserve the right the sign out AMA if she feels she needs to in order to care for her children or her life issues but she is not being discharge today. I offered to provide letters to show she has been on bed rest and in the hospital in order to present to bill collections agency, but declines at this time. + Fm and no contractions at this time. Patient reports: movement normal, other (States her BP is elevated because she is uncomfortable in the bed.), no new complaints Objective - Vital Signs Vital Signs: Vital Signs - 12hr 11/20/16 11/20/16 11/20/16 05:57 06:32 06:33 Temperature Pulse Rate 72 72 71 Pulse Rate [ Right From Monitor] Respiratory Rate Blood Pressure 131/73 162/97 134/76 Blood Pressure [Left Arm] O2 Sat by Pulse Oximetry 11/20/16 11/20/1611/20/17 07:04 07:16 07:17 Temperature 97.8 F Pulse Rate 71 72 Pulse Rate [ 71 Right From Monitor] Respiratory 18 Rate Blood Pressure 149/84 Blood Pressure 149/84 [Left Arm] O2 Sat by Pulse 100 100 Oximetry 11/20/16 11/20/16 11/20/16 07:34 09:35 10:05 Temperature Pulse Rate 71 80 75 Pulse Rate [ Right From Monitor] Respiratory Rate Blood Pressure 160/95 134/62 128/65 Blood Pressure [Left Arm] O2 Sat by Pulse Oximetry 11/20/16 11/20/16 11/20/16 10:38 11:05 11:35 Temperature Pulse Rate 78 89 84 Pulse Rate [ Right From Monitor] Respiratory Rate Blood Pressure 147/84 178/104 168/97 Blood Pressure [Left Arm] O2 Sat by Pulse Oximetry 11/20/16 11/20/16 11/20/16 12:05 12:35 12:37 Temperature Pulse Rate 81 83 83 Pulse Rate [ Right From Monitor] Respiratory Rate Blood Pressure 174/104 141/77 141/77 Blood Pressure [Left Arm] O2 Sat by Pulse Oximetry 11/20/16 11/20/16 11/20/16 14:05 14:35 15:05 Temperature Pulse Rate 78 85 91 H Pulse Rate [ Right From Monitor] Respiratory Rate Blood Pressure 130/78 119/73 119/60 Blood Pressure [Left Arm] O2 Sat by Pulse Oximetry 11/20/16 11/20/16 11/20/16 15:35 16:05 16:35 Temperature Pulse Rate 87 80 80 Pulse Rate [ Right From Monitor] Respiratory Rate Blood Pressure 117/63 122/80 137/87 Blood Pressure [Left Arm] O2 Sat by Pulse Oximetry - Exam Cardiovascular: Normal S1, Normal S2 Lungs: Normal air movement FHR: category 1 Uterine Contraction Pattern: Absent Deep Tendon Reflex Grade: Normal +2 - Labs Labs: Abnormal Labs 11/18/16 11/18/16 11/19/16 05:15 05:15 08:22 RBC 2.82 L 2.67 L Hgb 9.7 L 9.0 L Hct 28.4 L 27.2 L MCV 101 H 102 H MCH 34 H 34 H RDW 16.4 H 17.0 H Plt Count 86 L 80 L BUN Creatinine 0.3 L ALT Lactate Dehydrogenase 315 H Total Protein Albumin Urine Creatinine Ur Total Protein 24 Hr Urine Total Protein 11/19/16 11/20/16 11/20/16 Unknown 06:00 06:00 RBC 2.59 L Hgb 8.9 L Hct 26.4 L MCV 102 H MCH 35 H RDW 16.9 H Plt Count 74 L BUN 6 L Creatinine 0.3 L ALT 5 L Lactate Dehydrogenase Total Protein 6.1 L Albumin 3.1 L Urine Creatinine 57.5 H Ur Total Protein 24 Hr 1792.00 H Urine Total Protein 64 H Laboratory Results - last 24 hr 11/20/16 11/20/16 06:00 06:00 WBC 10.2 RBC 2.59 L Hgb 8.9 L Hct 26.4 L MCV 102 H MCH 35 H MCHC 34 RDW 16.9 H Plt Count 74 L Sodium 137 Potassium 3.8 Chloride 101.5 Carbon Dioxide 22 Anion Gap 17 BUN 6 L Creatinine 0.3 L Estimated GFR > 60 BUN/Creatinine Ratio 20.00 Glucose 85 Calcium 8.7 Total Bilirubin 0.2 AST 16 ALT 5 L Alkaline Phosphatase 78 Total Protein 6.1 L Albumin 3.1 L Albumin/Globulin Ratio 1.0
[2016-11-21] MEDS ORDERED: PROCTOSOL-HC PR PRN (06:11)
--- NOTE | 2016-11-21 07:26 | Progress Note ---
Assessment and Plan Patient resting in bed, states " I am bored, I have things to do and I cant do them if I'm in this hospital. I don't even have baby clothes or diapers" explained that the current recommendation from [facility] is for her to remain in the hospital at this time but she can leave against medical advice. discussed that she would assume all risk associated with her condition if she left prior to being discharged including of her fetus or self. b/p reviewed mostly 120- 140's/70-80's with one 160/93 last night. Pt denies KONG, epigastric pain or visual changes. repeat platelet count increased to 83 this morning. Consult to hematology ordered for today. Plan to continue current management. WShe says she feels her agitation will only make her blood pressure worse. Dr. dodd to be consulted. - Patient Problems (1) 32 weeks gestation of Current Visit: Yes Status: Acute (2) Hypertension affecting in third trimester Current Visit: No Status: Acute (3) Pre-eclampsia superimposed on chronic hypertension, antepartum Current Visit: No Status: Acute (4) Thrombocytopenia complicating Current Visit: Yes Status: Acute Plan to address problem: platelet count increased to 83 this morning Subjective - Subjective Date of service: 11/21/16 (Lithograph Press Operator note) Principal diagnosis: IUP 32w3d, CHTN w/superimposed preeclampsia Patient reports: movement normal, other (States her BP is elevated because she is agitated that she cannot leave "I have a lot of stuff to do"), no new complaints, no loss of fluid, no vaginal bleeding, no contractions Objective - Vital Signs Vital Signs: Vital Signs - 12hr 11/20/16 11/20/16 11/20/16 19:30 20:44 22:03 Temperature 97.6 F Pulse Rate 85 82 Blood Pressure 137/83 147/83 11/20/16 11/20/16 11/21/16 22:05 22:06 03:50 Temperature Pulse Rate 82 76 73 Blood Pressure 160/93 147/83 126/72 11/21/16 11/21/16 06:25 06:31 Temperature 97.1 F L Pulse Rate 73 Blood Pressure 139/73 - Exam Breasts: normal Cardiovascular: Regular rate Lungs: Clear to auscultation Abdomen: Present: normal appearance, soft, normal bowel sounds Uterus: Present: normal FHR: category 1 (NST lastnight 2100) Uterine Contraction Pattern: Absent Extremities: normal Deep Tendon Reflex Grade: Normal +2 - Labs Labs: Abnormal Labs 11/18/16 11/18/16 11/19/16 05:15 05:15 08:22 RBC 2.82 L 2.67 L Hgb 9.7 L 9.0 L Hct 28.4 L 27.2 L MCV 101 H 102 H MCH 34 H 34 H RDW 16.4 H 17.0 H Plt Count 86 L 80 L BUN Creatinine 0.3 L ALT Lactate Dehydrogenase 315 H Total Protein Albumin Urine Creatinine Ur Total Protein 24 Hr Urine Total Protein 11/19/16 11/20/16 11/20/16 Unknown 06:00 06:00 RBC 2.59 L Hgb 8.9 L Hct 26.4 L MCV 102 H MCH 35 H RDW 16.9 H Plt Count 74 L BUN 6 L Creatinine 0.3 L ALT 5 L Lactate Dehydrogenase Total Protein 6.1 L Albumin 3.1 L Urine Creatinine 57.5 H Ur Total Protein 24 Hr 1792.00 H Urine Total Protein 64 H 11/21/16 06:49 RBC Hgb Hct MCV MCH RDW Plt Count 83 L BUN Creatinine ALT Lactate Dehydrogenase Total Protein Albumin Urine Creatinine Ur Total Protein 24 Hr Urine Total Protein Laboratory Results - last 24 hr 11/21/16 06:49 Plt Count 83 L
[2016-11-21] MEDS: NORMODYNE PO SCH ×2 (10:19→22:28)
[2016-11-21] MEDS: PRENATAL VITAMIN PO SCH (10:20)
--- NOTE | 2016-11-21 18:34 | Consultation ---
History of Present Illness - Reason for Consult Consult date: 11/21/16 LOW PLT. Requesting physician: EVY ASHER - History of Present Illness Thank you for this consult, patient seen, examined, labs/records reviewed, and discussed with patient. Kindly asked to see this patient with 32weeks gestation , who presented not feeling well. routine labs suggestive of LOW PLT, hence this consult. As per patients acount, this is the first time she is hearing about blood issues. She claims to have been anemic before and have been on iron.Previos record reveals hx of Pregnacy with HTN, and pre eclamsia which is what this looks like also. Medications and Allergies Allergies Allergy/AdvReac Type Severity Reaction Status Date / Time No Known Allergies Allergy Verified 11/21/16 06:18 Home Medications Medication Instructions Recorded Confirmed Last Taken Type Vit-Fe Fumar-FA [ 1 tab PO QDAY 10/25/16 11/20/16 11/17/16 12: 00 History Vitamin] 1 tab Active Meds: Active Medications Acetaminophen (Tylenol) 650 mg PO Q4H PRN PRN Reason: Pain MILD(1-3)/Fever >100.5/KONG Last Admin: 11/20/16 03:55 Dose: 650 mg Al Hydrox/Mg Hydrox/Simethicone (Alum-Mag Hydrox-Simeth [phone]/5ml) 30 ml PO Q6H PRN PRN Reason: Indigestion Docusate Sodium (Colace) 100 mg PO Q12H PRN PRN Reason: Constipation Hydrocortisone Acetate (Proctosol-Hc) 1 applic MD Q8H PRN PRN Reason: Hemorrhoids Lactated Ringer's (Lactated Ringers) 1,000 mls @ 125 mls/hr IV DIRECT [facility] Last Admin: 11/19/16 16:17 Dose: 125 mls/hr Labetalol HCl (Normodyne) 200 mg PO BID [facility] Last Admin: 11/21/16 10:19 Dose: 200 mg Magnesium Hydroxide (Milk Of Magnesia) 30 ml PO QHS PRN PRN Reason: Laxative Effect Multivitamins/Iron/Calcium ( Vitamin) 1 each PO QDAY [facility] Last Admin: 11/21/16 10:20 Dose: 1 each Ondansetron HCl (Zofran) 4 mg IV Q6H PRN PRN Reason: Nausea And Vomiting Zolpidem Tartrate (Ambien) 10 mg PO ONCE PRN PRN Reason: Sleep Review of Systems Breasts: deferred Respiratory: cough Exam - Constitutional Vitals: Temp Pulse Resp BP Pulse Ox 97.6 F 74 20 124/69 100 11/21/16 07:46 11/21/16 11:53 11/21/16 07:46 11/21/16 10:19 11/21/16 11:53 General appearance: Present: no acute distress, well-nourished - EENT Eyes: Present: PERRL ENT: hearing intact, clear oral mucosa - Neck Neck: Present: supple, normal ROM - Respiratory Respiratory effort: normal Respiratory: bilateral: rhonchi - Cardiovascular Heart Sounds: Present: S1 & S2. Absent: rub, click - Extremities Extremities: pulses symmetrical, No edema Peripheral Pulses: within normal limits - Abdominal General gastrointestinal: Present: soft, non-tender, non-distended, normal bowel sounds Female genitourinary: Present: deferred - Rectal Rectal Exam: deferred - Integumentary Integumentary: Present: clear, warm, dry - Musculoskeletal Musculoskeletal: gait normal, strength equal bilaterally - Psychiatric Psychiatric: appropriate mood/affect, intact judgment & insight - Neurologic Neurologic: CNII-XII intact, moves all extremities Results - Labs CBC & Chem 7: 11/21/16 06:49 11/20/16 06:00 Labs: Abnormal lab results 11/21/16 Range/Units 06:49 Plt Count 83 L (140-440) K/mm3 Assessment and Plan - Patient Problems (1) 32 weeks gestation of Current Visit: Yes Status: Acute Plan to address problem: 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 If needed, ie PLT less or equal to 20,000, or symptomatic.
[2016-11-21 21:38] LABS: Hematocrit 25.4 % (30.3-42.9); Hemoglobin 8.6 gm/dl (10.1-14.3); Mean Corpuscular HGB Conc 34 % (30-34); Mean Corpuscular Hemoglobin 35 pg (28-32); Mean Corpuscular Volume 102 fl (79-97); Red Blood Count 2.48 M/mm3 (3.65-5.03); Red Cell Distribution Width 17.6 % (13.2-15.2)
[2016-11-21 22:02] LABS: Alanine Aminotransferase 6 units/L (7-56); Albumin 3.2 g/dL (3.9-5); Albumin/Globulin Ratio 1.1 %; Alkaline Phosphatase 80 units/L (35-129); Bilirubin,Total 0.3 mg/dL (0.1-1.2); Total Protein 6.2 g/dL (6.3-8.2)
[2016-11-21 22:11] LABS: Bilirubin,Direct < 0.2 mg/dL (0-0.2); Bilirubin,Indirect 0.1 mg/dL
[2016-11-21 22:34] LABS: Basophils % (Manual) 0 % (0.0-1.8); Blastocytes % (Manual) 0 %
[2016-11-21 22:36] LABS: Large Platelets Few; Macrocytosis 1+; Platelet Estimate Consistent w Auto; Poikilocytosis 1+
[2016-11-21 22:37] LABS: Diff Status Complete; Platelet Count 87 K/mm3 (140-440)
[2016-11-22] MEDS: AMBIEN PO PRN (02:22)
--- NOTE | 2016-11-22 07:05 | Progress Note ---
Assessment and Plan Assessment 1. 32+4 2. Chronic HTN with super-imposed pre-eclampsia (with severe features based on BP) 3. Thrombocytopenia, suspected gestational 4. Anemia, severe Recommendations 1. No change in BP meds 2. Labs q 2-3 days 3. BPP twice weekly 4. Iron and vitamins 5. Indications for delivery: inability to control BP, HELLP, pulmonary edema, 34 weeks Subjective - Subjective Date of service: 11/22/16 Principal diagnosis: IUP 32w3d, CHTN w/superimposed preeclampsia Patient reports: movement normal, other (States "I'm here" and did not really answer other questions), no new complaints, no loss of fluid, no vaginal bleeding, no contractions Objective - Vital Signs Vital Signs: Vital Signs - 12hr 11/21/16 11/21/16 11/21/16 20:01 20:03 22:05 Temperature 97.6 F Pulse Rate 85 98 H Blood Pressure 133/82 141/87 O2 Sat by Pulse Oximetry 11/21/16 11/22/16 11/22/16 22:28 00:39 00:44 Temperature Pulse Rate 91 H 81 85 Blood Pressure 139/73 133/84 O2 Sat by Pulse 100 99 Oximetry 11/22/16 11/22/16 11/22/16 00:49 00:54 00:59 Temperature Pulse Rate 82 81 85 Blood Pressure O2 Sat by Pulse 100 99 99 Oximetry 11/22/16 02:24 Temperature Pulse Rate 80 Blood Pressure 128/77 O2 Sat by Pulse Oximetry - Exam Cardiovascular: Regular rate Lungs: Clear to auscultation Abdomen: Present: normal appearance, soft Uterus: Present: normal Extremities: normal, edema (1+) - Labs Labs: Abnormal Labs 11/18/16 11/18/16 11/19/16 05:15 05:15 08:22 RBC 2.82 L 2.67 L Hgb 9.7 L 9.0 L Hct 28.4 L 27.2 L MCV 101 H 102 H MCH 34 H 34 H RDW 16.4 H 17.0 H Plt Count 86 L 80 L Nucleated RBC % BUN Creatinine 0.3 L ALT Lactate Dehydrogenase 315 H Total Protein Albumin Urine Creatinine Ur Total Protein 24 Hr Urine Total Protein 11/19/16 11/20/16 11/20/16 Unknown 06:00 06:00 RBC 2.59 L Hgb 8.9 L Hct 26.4 L MCV 102 H MCH 35 H RDW 16.9 H Plt Count 74 L Nucleated RBC % BUN 6 L Creatinine 0.3 L ALT 5 L Lactate Dehydrogenase Total Protein 6.1 L Albumin 3.1 L Urine Creatinine 57.5 H Ur Total Protein 24 Hr 1792.00 H Urine Total Protein 64 H 11/21/16 11/21/16 11/21/16 06:49 19:40 19:40 RBC Hgb Hct MCV MCH RDW Plt Count 83 L Nucleated RBC % BUN Creatinine ALT 6 L Lactate Dehydrogenase 361 H Total Protein 6.2 L Albumin 3.2 L Urine Creatinine Ur Total Protein 24 Hr Urine Total Protein 11/21/16 19:40 RBC 2.48 L Hgb 8.6 L Hct 25.4 L MCV 102 H MCH 35 H RDW 17.6 H Plt Count 87 L Nucleated RBC % 6.0 H BUN Creatinine ALT Lactate Dehydrogenase Total Protein Albumin Urine Creatinine Ur Total Protein 24 Hr Urine Total Protein Laboratory Results - last 24 hr 11/21/16 11/21/16 11/21/16 06:49 19:40 19:40 WBC RBC Hgb Hct MCV MCH MCHC RDW Plt Count 83 L Add Manual Diff Total Counted Seg Neuts % (Manual) Band Neutrophils % Lymphocytes % (Manual) Reactive Lymphs % (Man) Monocytes % (Manual) Eosinophils % (Manual) Basophils % (Manual) Metamyelocytes % Myelocytes % Promyelocytes % Blast Cells % Nucleated RBC % Seg Neutrophils # Man Band Neutrophils # Lymphocytes # (Manual) Abs React Lymphs (Man) Monocytes # (Manual) Eosinophils # (Manual) Basophils # (Manual) Metamyelocytes # Myelocytes # Promyelocytes # Blast Cells # WBC Morphology Hypersegmented Neuts Hyposegmented Neuts Hypogranular Neuts Smudge Cells Toxic Granulation Toxic Vacuolation Dohle Bodies Pelger-Huet Anomaly Allan Rods Platelet Estimate Clumped Platelets Plt Clumps, EDTA Large Platelets Giant Platelets Platelet Satelliting Plt Morphology Comment RBC Morphology Dimorphic RBCs Polychromasia Hypochromasia Poikilocytosis Anisocytosis Microcytosis Macrocytosis Spherocytes Pappenheimer Bodies Sickle Cells Target Cells Tear Drop Cells Ovalocytes Helmet Cells [place] Bodies [place] Rings Fabiola Cells Bite Cells Crenated Cell Elliptocytes Acanthocytes (Spur) Rouleaux Hemoglobin C Crystals Schistocytes Malaria parasites Yannick Bodies Hem Pathologist Commnt Total Bilirubin Direct Bilirubin Indirect Bilirubin AST ALT Alkaline Phosphatase Lactate Dehydrogenase 361 H Total Protein Albumin Albumin/Globulin Ratio Vitamin B12 328.8 Folate 11/21/16 11/21/16 11/21/16 19:40 19:40 19:40 WBC 11.0 RBC 2.48 L Hgb 8.6 L Hct 25.4 L MCV 102 H MCH 35 H MCHC 34 RDW 17.6 H Plt Count 87 L Add Manual Diff Complete Total Counted 100 Seg Neuts % (Manual) 64.0 Band Neutrophils % 3.0 Lymphocytes % (Manual) 21.0 Reactive Lymphs % (Man) 0 Monocytes % (Manual) 7.0 Eosinophils % (Manual) 3.0 Basophils % (Manual) 0 Metamyelocytes % 2.0 Myelocytes % 0 Promyelocytes % 0 Blast Cells % 0 Nucleated RBC % 6.0 H Seg Neutrophils # Man 7.0 Band Neutrophils # 0.3 Lymphocytes # (Manual) 2.3 Abs React Lymphs (Man) 0.0 Monocytes # (Manual) 0.8 Eosinophils # (Manual) 0.3 Basophils # (Manual) 0.0 Metamyelocytes # 0.2 Myelocytes # 0.0 Promyelocytes # 0.0 Blast Cells # 0.0 WBC Morphology Not Reportable Hypersegmented Neuts Not Reportable Hyposegmented Neuts Not Reportable Hypogranular Neuts Not Reportable Smudge Cells Not Reportable Toxic Granulation Not Reportable Toxic Vacuolation Not Reportable Dohle Bodies Not Reportable Pelger-Huet Anomaly Not Reportable Allan Rods Not Reportable Platelet Estimate Consistent w auto Clumped Platelets Not Reportable Plt Clumps, EDTA Not Reportable Large Platelets Few Giant Platelets Not Reportable Platelet Satelliting Not Reportable Plt Morphology Comment Not Reportable RBC Morphology Not Reportable Dimorphic RBCs Not Reportable Polychromasia Not Reportable Hypochromasia Not Reportable Poikilocytosis 1+ Anisocytosis Not Reportable Microcytosis Not Reportable Macrocytosis 1+ Spherocytes Not Reportable Pappenheimer Bodies Not Reportable Sickle Cells Not Reportable Target Cells Not Reportable Tear Drop Cells Not Reportable Ovalocytes Not Reportable Helmet Cells Not Reportable Ho-[place] Bodies Not Reportable [place] Rings Not Reportable Fabiola Cells Not Reportable Bite Cells Not Reportable Crenated Cell Not Reportable Elliptocytes Not Reportable Acanthocytes (Spur) Not Reportable Rouleaux Not Reportable Hemoglobin C Crystals Not Reportable Schistocytes Not Reportable Malaria parasites Not Reportable Yannick Bodies Not Reportable Hem Pathologist Commnt No Total Bilirubin 0.3 Direct Bilirubin < 0.2 Indirect Bilirubin 0.1 AST 19 ALT 6 L Alkaline Phosphatase 80 Lactate Dehydrogenase Total Protein 6.2 L Albumin 3.2 L Albumin/Globulin Ratio 1.1 Vitamin B12 Folate 13.40
--- NOTE | 2016-11-22 07:38 | Progress Note ---
Assessment and Plan B/p controlled by labetalol at this time - 120-140's/60-80's. no s/s pre-e. NST CAT 1 @ [address] Dr[address] Reyes's note, will order BPP today (twice weekly). CBC drawn yesterday, platelets increased to 87. Hematology consult complete and on chart. Continue current plan of care. Dr. Castillo to be consulted. - Patient Problems (1) 32 weeks gestation of Current Visit: Yes Status: Acute (2) Hypertension affecting in third trimester Current Visit: No Status: Acute (3) Pre-eclampsia superimposed on chronic hypertension, antepartum Current Visit: No Status: Acute Plan to address problem: pre-e labs q2-3 days (drawn 11/21/16) twice weekly BPP (ordered today) continue to monitor for worsening pre-e anticipate del @ 34 weeks per [facility], or sooner if needed. (4) Thrombocytopenia affecting , antepartum Current Visit: No Status: Acute Plan to address problem: Platelets yesterday 87 Hematology consult complete Subjective - Subjective Date of service: 11/22/16 (Lpn Rn Hospice note) Principal diagnosis: IUP 32w4d, CHTN w/superimposed preeclampsia Patient reports: movement normal, other (denies KONG, visual changes or epigastric pain), no new complaints, no loss of fluid, no vaginal bleeding, no contractions Objective - Vital Signs Vital Signs: Vital Signs - 12hr 11/21/16 11/21/16 11/21/16 20:01 20:03 22:05 Temperature 97.6 F Pulse Rate 85 98 H Blood Pressure 133/82 141/87 O2 Sat by Pulse Oximetry 11/21/16 11/22/16 11/22/16 22:28 00:39 00:44 Temperature Pulse Rate 91 H 81 85 Blood Pressure 139/73 133/84 O2 Sat by Pulse 100 99 Oximetry 11/22/16 11/22/16 11/22/16 00:49 00:54 00:59 Temperature Pulse Rate 82 81 85 Blood Pressure O2 Sat by Pulse 100 99 99 Oximetry 11/22/16 02:24 Temperature Pulse Rate 80 Blood Pressure 128/77 O2 Sat by Pulse Oximetry - Exam Breasts: normal Cardiovascular: Regular rate Lungs: Clear to auscultation, Normal air movement Abdomen: Present: normal appearance, soft Uterus: Present: normal Uterine Contraction Monitor Mode: External Uterine Contraction Pattern: Absent Uterine Tone Measurement Phase: Resting Extremities: normal Deep Tendon Reflex Grade: Normal +2 - Labs Labs: Abnormal Labs 11/18/16 11/18/16 11/19/16 05:15 05:15 08:22 RBC 2.82 L 2.67 L Hgb 9.7 L 9.0 L Hct 28.4 L 27.2 L MCV 101 H 102 H MCH 34 H 34 H RDW 16.4 H 17.0 H Plt Count 86 L 80 L Nucleated RBC % BUN Creatinine 0.3 L ALT Lactate Dehydrogenase 315 H Total Protein Albumin Urine Creatinine Ur Total Protein 24 Hr Urine Total Protein 11/19/16 11/20/16 11/20/16 Unknown 06:00 06:00 RBC 2.59 L Hgb 8.9 L Hct 26.4 L MCV 102 H MCH 35 H RDW 16.9 H Plt Count 74 L Nucleated RBC % BUN 6 L Creatinine 0.3 L ALT 5 L Lactate Dehydrogenase Total Protein 6.1 L Albumin 3.1 L Urine Creatinine 57.5 H Ur Total Protein 24 Hr 1792.00 H Urine Total Protein 64 H 11/21/16 11/21/16 11/21/16 06:49 19:40 19:40 RBC Hgb Hct MCV MCH RDW Plt Count 83 L Nucleated RBC % BUN Creatinine ALT 6 L Lactate Dehydrogenase 361 H Total Protein 6.2 L Albumin 3.2 L Urine Creatinine Ur Total Protein 24 Hr Urine Total Protein 11/21/16 19:40 RBC 2.48 L Hgb 8.6 L Hct 25.4 L MCV 102 H MCH 35 H RDW 17.6 H Plt Count 87 L Nucleated RBC % 6.0 H BUN Creatinine ALT Lactate Dehydrogenase Total Protein Albumin Urine Creatinine Ur Total Protein 24 Hr Urine Total Protein Laboratory Results - last 24 hr 11/21/16 11/21/16 11/21/16 19:40 19:40 19:40 WBC RBC Hgb Hct MCV MCH MCHC RDW Plt Count Add Manual Diff Total Counted Seg Neuts % (Manual) Band Neutrophils % Lymphocytes % (Manual) Reactive Lymphs % (Man) Monocytes % (Manual) Eosinophils % (Manual) Basophils % (Manual) Metamyelocytes % Myelocytes % Promyelocytes % Blast Cells % Nucleated RBC % Seg Neutrophils # Man Band Neutrophils # Lymphocytes # (Manual) Abs React Lymphs (Man) Monocytes # (Manual) Eosinophils # (Manual) Basophils # (Manual) Metamyelocytes # Myelocytes # Promyelocytes # Blast Cells # WBC Morphology Hypersegmented Neuts Hyposegmented Neuts Hypogranular Neuts Smudge Cells Toxic Granulation Toxic Vacuolation Dohle Bodies Pelger-Huet Anomaly Allan Rods Platelet Estimate Clumped Platelets Plt Clumps, EDTA Large Platelets Giant Platelets Platelet Satelliting Plt Morphology Comment RBC Morphology Dimorphic RBCs Polychromasia Hypochromasia Poikilocytosis Anisocytosis Microcytosis Macrocytosis Spherocytes Pappenheimer Bodies Sickle Cells Target Cells Tear Drop Cells Ovalocytes Helmet Cells Ho-[place] Bodies [place] Rings [place] Cells Bite Cells Crenated Cell Elliptocytes Acanthocytes (Spur) Rouleaux Hemoglobin C Crystals Schistocytes Malaria parasites Yannick Bodies Hem Pathologist Commnt Total Bilirubin Direct Bilirubin Indirect Bilirubin AST ALT Alkaline Phosphatase Lactate Dehydrogenase 361 H Total Protein Albumin Albumin/Globulin Ratio Vitamin B12 328.8 Folate 13.40 11/21/16 11/21/16 19:40 19:40 WBC 11.0 RBC 2.48 L Hgb 8.6 L Hct 25.4 L MCV 102 H MCH 35 H MCHC 34 RDW 17.6 H Plt Count 87 L Add Manual Diff Complete Total Counted 100 Seg Neuts % (Manual) 64.0 Band Neutrophils % 3.0 Lymphocytes % (Manual) 21.0 Reactive Lymphs % (Man) 0 Monocytes % (Manual) 7.0 Eosinophils % (Manual) 3.0 Basophils % (Manual) 0 Metamyelocytes % 2.0 Myelocytes % 0 Promyelocytes % 0 Blast Cells % 0 Nucleated RBC % 6.0 H Seg Neutrophils # Man 7.0 Band Neutrophils # 0.3 Lymphocytes # (Manual) 2.3 Abs React Lymphs (Man) 0.0 Monocytes # (Manual) 0.8 Eosinophils # (Manual) 0.3 Basophils # (Manual) 0.0 Metamyelocytes # 0.2 Myelocytes # 0.0 Promyelocytes # 0.0 Blast Cells # 0.0 WBC Morphology Not Reportable Hypersegmented Neuts Not Reportable Hyposegmented Neuts Not Reportable Hypogranular Neuts Not Reportable Smudge Cells Not Reportable Toxic Granulation Not Reportable Toxic Vacuolation Not Reportable Dohle Bodies Not Reportable Pelger-Huet Anomaly Not Reportable Allan Rods Not Reportable Platelet Estimate Consistent w auto Clumped Platelets Not Reportable Plt Clumps, EDTA Not Reportable Large Platelets Few Giant Platelets Not Reportable Platelet Satelliting Not Reportable Plt Morphology Comment Not Reportable RBC Morphology Not Reportable Dimorphic RBCs Not Reportable Polychromasia Not Reportable Hypochromasia Not Reportable Poikilocytosis 1+ Anisocytosis Not Reportable Microcytosis Not Reportable Macrocytosis 1+ Spherocytes Not Reportable Pappenheimer Bodies Not Reportable Sickle Cells Not Reportable Target Cells Not Reportable Tear Drop Cells Not Reportable Ovalocytes Not Reportable Helmet Cells Not Reportable Ho-[place] Bodies Not Reportable [place] Rings Not Reportable Fabiola Cells Not Reportable Bite Cells Not Reportable Crenated Cell Not Reportable Elliptocytes Not Reportable Acanthocytes (Spur) Not Reportable Rouleaux Not Reportable Hemoglobin C Crystals Not Reportable Schistocytes Not Reportable Malaria parasites Not Reportable Yannick Bodies Not Reportable Hem Pathologist Commnt No Total Bilirubin 0.3 Direct Bilirubin < 0.2 Indirect Bilirubin 0.1 AST 19 ALT 6 L Alkaline Phosphatase 80 Lactate Dehydrogenase Total Protein 6.2 L Albumin 3.2 L Albumin/Globulin Ratio 1.1 Vitamin B12 Folate
--- NOTE | 2016-11-22 09:08 | Progress Note ---
Assessment and Plan - Patient Problems (1) Thrombocytopenia affecting , antepartum Current Visit: Yes Status: Acute Plan to address problem: Current Assessment 1. 32weeks + 4d EGA 2. Chronic HTN with super-imposed pre-eclampsia (with severe features based on BP) a.--this hosp 24 hr urine was 1792, confirming this dx b.--now on Labetolol 200mg bid, still having very labile BP with severe PreE to wnl range 3. Thrombocytopenia, suspected gestational (not currently thought to be HELLP) a.--today's plt 87,000 b.--LFT wnl except for elevated LDH 4. Anemia, severe a.--today's Hct 25.4 and hgb 8.6 b.--folate and Vit B12 levels wnl 5. Very poor social situation with some homelessness and issues with family members 6. Tobacco use 7. AMA Recommendations (per Dr Juares's note 11/22/2016) 1. No change in BP meds 2. Labs q 2-3 days 3. BPP twice weekly 4. Iron and vitamins 5. Indications for delivery: inability to control BP, HELLP, pulmonary edema, 34 weeks (2) Pre-eclampsia superimposed on chronic hypertension, antepartum Current Visit: No Status: Acute (3) 32 weeks gestation of Current Visit: Yes Status: Acute (4) AMA (advanced maternal age) multigravida 35+ Current Visit: No Status: Acute Qualifiers: Trimester: T Subjective - Subjective Date of service: 11/22/16 Principal diagnosis: IUP 32w4d, CHTN w/superimposed preeclampsia Interval history: Current Assessment 1. 32weeks + 4d EGA 2. Chronic HTN with super-imposed pre-eclampsia (with severe features based on BP) a.--this hosp 24 hr urine was 1792, confirming this dx b.--now on Labetolol 200mg bid, still having very labile BP with severe PreE to wnl range 3. Thrombocytopenia, suspected gestational (not currently thought to be HELLP) a.--today's plt 87,000 b.--LFT wnl except for elevated LDH 4. Anemia, severe a.--today's Hct 25.4 and hgb 8.6 b.--folate and Vit B12 levels wnl 5. Very poor social situation with some homelessness and issues with family members 6. Tobacco use 7. AMA Recommendations (per Dr Juares's note 11/22/2016) 1. No change in BP meds 2. Labs q 2-3 days 3. BPP twice weekly 4. Iron and vitamins 5. Indications for delivery: inability to control BP, HELLP, pulmonary edema, 34 weeks Patient reports: movement normal, other (denies KONG, visual changes or epigastric pain), no new complaints, no loss of fluid, no vaginal bleeding, no contractions Objective - Vital Signs Vital Signs: Vital Signs - 12hr 11/21/16 11/21/16 11/22/16 22:05 22:28 00:39 Temperature Pulse Rate 98 H 91 H 81 Pulse Rate [ Right From Monitor] Respiratory Rate Blood Pressure 141/87 139/73 133/84 Blood Pressure [Left Arm] O2 Sat by Pulse 100 Oximetry 11/22/16 11/22/16 11/22/16 00:44 00:49 00:54 Temperature Pulse Rate 85 82 81 Pulse Rate [ Right From Monitor] Respiratory Rate Blood Pressure Blood Pressure [Left Arm] O2 Sat by Pulse 99 100 99 Oximetry 11/22/16 11/22/16 11/22/16 00:59 02:24 07:58 Temperature 98.2 F Pulse Rate 85 80 Pulse Rate [ 76 Right From Monitor] Respiratory 20 Rate Blood Pressure 128/77 Blood Pressure 169/94 [Left Arm] O2 Sat by Pulse 99 Oximetry 11/22/16 11/22/16 08:01 08:02 Temperature Pulse Rate 78 73 Pulse Rate [ Right From Monitor] Respiratory Rate Blood Pressure 169/94 157/95 Blood Pressure [Left Arm] O2 Sat by Pulse 99 Oximetry - Exam Abdomen: Present: normal appearance, soft Uterus: Present: normal FHR: auscultation normal Uterine Contraction Monitor Mode: Palpation Uterine Contraction Pattern: Absent Extremities: normal - Labs Labs: Abnormal Labs 11/18/16 11/18/16 11/19/16 05:15 05:15 08:22 RBC 2.82 L 2.67 L Hgb 9.7 L 9.0 L Hct 28.4 L 27.2 L MCV 101 H 102 H MCH 34 H 34 H RDW 16.4 H 17.0 H Plt Count 86 L 80 L Nucleated RBC % BUN Creatinine 0.3 L ALT Lactate Dehydrogenase 315 H Total Protein Albumin Urine Creatinine Ur Total Protein 24 Hr Urine Total Protein 11/19/16 11/20/16 11/20/16 Unknown 06:00 06:00 RBC 2.59 L Hgb 8.9 L Hct 26.4 L MCV 102 H MCH 35 H RDW 16.9 H Plt Count 74 L Nucleated RBC % BUN 6 L Creatinine 0.3 L ALT 5 L Lactate Dehydrogenase Total Protein 6.1 L Albumin 3.1 L Urine Creatinine 57.5 H Ur Total Protein 24 Hr 1792.00 H Urine Total Protein 64 H 11/21/16 11/21/16 11/21/16 06:49 19:40 19:40 RBC Hgb Hct MCV MCH RDW Plt Count 83 L Nucleated RBC % BUN Creatinine ALT 6 L Lactate Dehydrogenase 361 H Total Protein 6.2 L Albumin 3.2 L Urine Creatinine Ur Total Protein 24 Hr Urine Total Protein 11/21/16 19:40 RBC 2.48 L Hgb 8.6 L Hct 25.4 L MCV 102 H MCH 35 H RDW 17.6 H Plt Count 87 L Nucleated RBC % 6.0 H BUN Creatinine ALT Lactate Dehydrogenase Total Protein Albumin Urine Creatinine Ur Total Protein 24 Hr Urine Total Protein Laboratory Results - last 24 hr 11/21/16 11/21/16 11/21/16 19:40 19:40 19:40 WBC RBC Hgb Hct MCV MCH MCHC RDW Plt Count Add Manual Diff Total Counted Seg Neuts % (Manual) Band Neutrophils % Lymphocytes % (Manual) Reactive Lymphs % (Man) Monocytes % (Manual) Eosinophils % (Manual) Basophils % (Manual) Metamyelocytes % Myelocytes % Promyelocytes % Blast Cells % Nucleated RBC % Seg Neutrophils # Man Band Neutrophils # Lymphocytes # (Manual) Abs React Lymphs (Man) Monocytes # (Manual) Eosinophils # (Manual) Basophils # (Manual) Metamyelocytes # Myelocytes # Promyelocytes # Blast Cells # WBC Morphology Hypersegmented Neuts Hyposegmented Neuts Hypogranular Neuts Smudge Cells Toxic Granulation Toxic Vacuolation Dohle Bodies Pelger-Huet Anomaly Allan Rods Platelet Estimate Clumped Platelets Plt Clumps, EDTA Large Platelets Giant Platelets Platelet Satelliting Plt Morphology Comment RBC Morphology Dimorphic RBCs Polychromasia Hypochromasia Poikilocytosis Anisocytosis Microcytosis Macrocytosis Spherocytes Pappenheimer Bodies Sickle Cells Target Cells Tear Drop Cells Ovalocytes Helmet Cells [place] Bodies Walsh Rings [place] Cells Bite Cells Crenated Cell Elliptocytes Acanthocytes (Spur) Rouleaux Hemoglobin C Crystals Schistocytes Malaria parasites Yannick Bodies Hem Pathologist Commnt Total Bilirubin Direct Bilirubin Indirect Bilirubin AST ALT Alkaline Phosphatase Lactate Dehydrogenase 361 H Total Protein Albumin Albumin/Globulin Ratio Vitamin B12 328.8 Folate 13.40 11/21/16 11/21/16 19:40 19:40 WBC 11.0 RBC 2.48 L Hgb 8.6 L Hct 25.4 L MCV 102 H MCH 35 H MCHC 34 RDW 17.6 H Plt Count 87 L Add Manual Diff Complete Total Counted 100 Seg Neuts % (Manual) 64.0 Band Neutrophils % 3.0 Lymphocytes % (Manual) 21.0 Reactive Lymphs % (Man) 0 Monocytes % (Manual) 7.0 Eosinophils % (Manual) 3.0 Basophils % (Manual) 0 Metamyelocytes % 2.0 Myelocytes % 0 Promyelocytes % 0 Blast Cells % 0 Nucleated RBC % 6.0 H Seg Neutrophils # Man 7.0 Band Neutrophils # 0.3 Lymphocytes # (Manual) 2.3 Abs React Lymphs (Man) 0.0 Monocytes # (Manual) 0.8 Eosinophils # (Manual) 0.3 Basophils # (Manual) 0.0 Metamyelocytes # 0.2 Myelocytes # 0.0 Promyelocytes # 0.0 Blast Cells # 0.0 WBC Morphology Not Reportable Hypersegmented Neuts Not Reportable Hyposegmented Neuts Not Reportable Hypogranular Neuts Not Reportable Smudge Cells Not Reportable Toxic Granulation Not Reportable Toxic Vacuolation Not Reportable Dohle Bodies Not Reportable Pelger-Huet Anomaly Not Reportable Allan Rods Not Reportable Platelet Estimate Consistent w auto Clumped Platelets Not Reportable Plt Clumps, EDTA Not Reportable Large Platelets Few Giant Platelets Not Reportable Platelet Satelliting Not Reportable Plt Morphology Comment Not Reportable RBC Morphology Not Reportable Dimorphic RBCs Not Reportable Polychromasia Not Reportable Hypochromasia Not Reportable Poikilocytosis 1+ Anisocytosis Not Reportable Microcytosis Not Reportable Macrocytosis 1+ Spherocytes Not Reportable Pappenheimer Bodies Not Reportable Sickle Cells Not Reportable Target Cells Not Reportable Tear Drop Cells Not Reportable Ovalocytes Not Reportable Helmet Cells Not Reportable [place] Bodies Not Reportable Walsh Rings Not Reportable Fabiola Cells Not Reportable Bite Cells Not Reportable Crenated Cell Not Reportable Elliptocytes Not Reportable Acanthocytes (Spur) Not Reportable Rouleaux Not Reportable Hemoglobin C Crystals Not Reportable Schistocytes Not Reportable Malaria parasites Not Reportable Yannick Bodies Not Reportable Hem Pathologist Commnt No Total Bilirubin 0.3 Direct Bilirubin < 0.2 Indirect Bilirubin 0.1 AST 19 ALT 6 L Alkaline Phosphatase 80 Lactate Dehydrogenase Total Protein 6.2 L Albumin 3.2 L Albumin/Globulin Ratio 1.1 Vitamin B12 Folate
--- NOTE | 2016-11-22 10:46 | Event Note ---
<ALANIS COFFEY - Last Filed: 11/22/16 10:43> Date: 11/22/16 (vaginal discharge) Patient c/o leaking "cloudy white" fluid from her vaginal twice this morning. Sterile spec exam done - small amount of opaque yellow fluid noted pooling in vagina. no leaking noted from cervix. no microscope available for ferning. Wet prep collected. Nitazine was negative. Will continue to monitor and wait for wet prep results. <ANA ANGELA - Last Filed: 11/22/16 11:10> Aware of this
[2016-11-22] MEDS: NORMODYNE PO SCH ×2 (10:47→21:48)
[2016-11-22] MEDS: PRENATAL VITAMIN PO SCH (10:48)
--- NOTE | 2016-11-22 11:05 | Ultrasound Report ---
BIOPHYSICAL PROFILE: History: well-being. Technique: Transabdominal ultrasound with Doppler interrogation. 2 - breathing movements 2 - movements 2 - posture and tone 2 - Qualitative amniotic fluid volume 8 - TOTAL SCORE OF POSSIBLE 8 Heart Rate (bpm) 138
--- NOTE | 2016-11-22 18:00 | Consultation ---
History of Present Illness - Reason for Consult Consult date: 11/22/16 - History of Present Illness Patient seen/examined, labs reviewed, case d/w patient. No new issues/ complaints with her. Lots of the w/up labs pending results.BP better. Medications and Allergies Allergies Allergy/AdvReac Type Severity Reaction Status Date / Time No Known Allergies Allergy Verified 11/21/16 06:18 Home Medications Medication Instructions Recorded Confirmed Last Taken Type Vit-Fe Fumar-FA [ 1 tab PO QDAY 10/25/16 11/20/16 11/17/16 12: 00 History Vitamin] 1 tab Active Meds: Active Medications Acetaminophen (Tylenol) 650 mg PO Q4H PRN PRN Reason: Pain MILD(1-3)/Fever >100.5/KONG Last Admin: 11/20/16 03:55 Dose: 650 mg Al Hydrox/Mg Hydrox/Simethicone (Alum-Mag Hydrox-Simeth 304-599-29gl/5ml) 30 ml PO Q6H PRN PRN Reason: Indigestion Docusate Sodium (Colace) 100 mg PO Q12H PRN PRN Reason: Constipation Hydrocortisone Acetate (Proctosol-Hc) 1 applic HI Q8H PRN PRN Reason: Hemorrhoids Lactated Ringer's (Lactated Ringers) 1,000 mls @ 125 mls/hr IV DIRECT [facility] Last Admin: 11/19/16 16:17 Dose: 125 mls/hr Labetalol HCl (Normodyne) 200 mg PO BID [facility] Last Admin: 11/22/16 10:47 Dose: 200 mg Magnesium Hydroxide (Milk Of Magnesia) 30 ml PO QHS PRN PRN Reason: Laxative Effect Multivitamins/Iron/Calcium ( Vitamin) 1 each PO QDAY [facility] Last Admin: 11/22/16 10:48 Dose: 1 each Ondansetron HCl (Zofran) 4 mg IV Q6H PRN PRN Reason: Nausea And Vomiting Zolpidem Tartrate (Ambien) 10 mg PO ONCE PRN PRN Reason: Sleep Last Admin: 11/22/16 02:22 Dose: 10 mg Review of Systems Breasts: deferred Respiratory: cough Exam - Constitutional Vitals: Temp Pulse Resp BP Pulse Ox 97.8 F 85 20 132/85 99 11/22/16 12:49 11/22/16 12:49 11/22/16 12:49 11/22/16 12:49 11/22/16 12:48 General appearance: Present: no acute distress, well-nourished - EENT Eyes: Present: PERRL ENT: hearing intact, clear oral mucosa - Neck Neck: Present: supple, normal ROM - Respiratory Respiratory effort: normal Respiratory: bilateral: CTA - Cardiovascular Heart Sounds: Present: S1 & S2. Absent: rub, click - Extremities Extremities: pulses symmetrical, No edema Peripheral Pulses: within normal limits - Abdominal General gastrointestinal: Present: soft, non-tender, non-distended, normal bowel sounds Female genitourinary: Present: deferred - Rectal Rectal Exam: deferred - Integumentary Integumentary: Present: clear, warm, dry - Musculoskeletal Musculoskeletal: gait normal, strength equal bilaterally - Psychiatric Psychiatric: appropriate mood/affect, intact judgment & insight - Neurologic Neurologic: CNII-XII intact, moves all extremities Results - Labs CBC & Chem 7: 11/21/16 19:40 11/20/16 06:00 Labs: Abnormal lab results 11/21/16 11/21/16 11/21/16 Range/Units 19:40 19:40 19:40 RBC 2.48 L (3.65-5.03) M/mm3 Hgb 8.6 L (10.1-14.3) gm/dl Hct 25.4 L (30.3-42.9) % MCV 102 H (79-97) fl MCH 35 H (28-32) pg RDW 17.6 H (13.2-15.2) % Plt Count 87 L (140-440) K/mm3 Nucleated RBC % 6.0 H (0.0-0.9) % ALT 6 L (7-56) units/L Lactate Dehydrogenase 361 H (91-180) units/L Total Protein 6.2 L (6.3-8.2) g/dL Albumin 3.2 L (3.9-5) g/dL Assessment and Plan - Patient Problems (1) 32 weeks gestation of Current Visit: Yes Status: Acute Plan to address problem: Deffer to the NURSE AIDE EVALUATOR (2) Thrombocytopenia complicating Current Visit: Yes Status: Acute Plan to address problem: This may be part of pre eclampsia., see some lab order. If needed, ie PLT less or equal to 20,000, or symptomatic. Awaiting new lab results. so far, PLT improved a bit.
[2016-11-22 20:33] LABS: Hematocrit 26.3 % (30.3-42.9); Hemoglobin 8.8 gm/dl (10.1-14.3); Mean Corpuscular HGB Conc 34 % (30-34); Mean Corpuscular Hemoglobin 35 pg (28-32); Mean Corpuscular Volume 104 fl (79-97); Red Blood Count 2.53 M/mm3 (3.65-5.03); Red Cell Distribution Width 17.6 % (13.2-15.2)
[2016-11-22 20:42] LABS: Platelet Count 91 K/mm3 (140-440)
[2016-11-22 21:42] LABS: Basophils % (Manual) 0 % (0.0-1.8); Blastocytes % (Manual) 0 %; Eosinophils % (Manual) 0 % (0.0-4.3)
[2016-11-22 21:50] LABS: Macrocytosis 1+
[2016-11-22 21:51] LABS: Microcytosis 1+
[2016-11-22 21:53] LABS: Schistocytes Few
[2016-11-22 21:55] LABS: Polychromasia 1+
[2016-11-22 21:56] LABS: Diff Status Complete; Large Platelets Few
[2016-11-22 21:57] LABS: Platelet Estimate Appe
--- NOTE | 2016-11-23 06:23 | Progress Note ---
Assessment and Plan Pt very anxious this AM "I have to much to do to be in this detention. I'm only 36yo" Discussed again with pt that she is not being held against her will. She may leave but it will be against medical advise. She can return for care to the hospital or a visit to the office. BUT we feel she needs to rest and be monitored for herself and her baby. Consult for manager social work to try to get resources for her needs. BP 140-120/80-60 Pt denies any KONG, blurred vision, chest pain. Labetalol 200mg po BID NST has been reactive. To be done Q shift. BPP yesterday 05/22. Pt reports good FM. will see pt today. Subjective - Subjective Date of service: 11/23/16 (snack stewardess note) Principal diagnosis: IUP 32w4d, CHTN w/superimposed preeclampsia Patient reports: movement normal, other (denies KONG, visual changes or epigastric pain), no new complaints, no loss of fluid, no vaginal bleeding, no contractions Objective - Vital Signs Vital Signs: Vital Signs - 12hr 11/22/16 11/22/16 11/22/16 20:58 20:59 21:04 Temperature 97.8 F Pulse Rate 82 82 Respiratory 20 Rate Blood Pressure 142/88 O2 Sat by Pulse 100 0 L Oximetry 11/22/16 11/22/16 11/22/16 21:48 23:49 23:50 Temperature 97.4 F L Pulse Rate 82 88 Respiratory 20 Rate Blood Pressure 142/88 123/68 O2 Sat by Pulse Oximetry 11/23/16 11/23/16 04:10 04:21 Temperature 99.0 F Pulse Rate 77 Respiratory 18 Rate Blood Pressure 123/72 O2 Sat by Pulse Oximetry - Exam Breasts: deferred Cardiovascular: Regular rate Lungs: Normal air movement Abdomen: Present: normal appearance, soft. Absent: distention, tenderness Vulva: both: normal Uterus: Present: normal FHR: auscultation normal Uterine Contraction Pattern: Absent Extremities: edema Deep Tendon Reflex Grade: Normal +2 - Labs Labs: Abnormal Labs 11/18/16 11/18/16 11/19/16 05:15 05:15 08:22 WBC RBC 2.82 L 2.67 L Hgb 9.7 L 9.0 L Hct 28.4 L 27.2 L MCV 101 H 102 H MCH 34 H 34 H RDW 16.4 H 17.0 H Plt Count 86 L 80 L Monocytes % (Manual) Nucleated RBC % Seg Neutrophils # Man Monocytes # (Manual) BUN Creatinine 0.3 L ALT Lactate Dehydrogenase 315 H Total Protein Albumin Urine Creatinine Ur Total Protein 24 Hr Urine Total Protein 11/19/16 11/20/16 11/20/16 Unknown 06:00 06:00 WBC RBC 2.59 L Hgb 8.9 L Hct 26.4 L MCV 102 H MCH 35 H RDW 16.9 H Plt Count 74 L Monocytes % (Manual) Nucleated RBC % Seg Neutrophils # Man Monocytes # (Manual) BUN 6 L Creatinine 0.3 L ALT 5 L Lactate Dehydrogenase Total Protein 6.1 L Albumin 3.1 L Urine Creatinine 57.5 H Ur Total Protein 24 Hr 1792.00 H Urine Total Protein 64 H 11/21/16 11/21/16 11/21/16 06:49 19:40 19:40 WBC RBC Hgb Hct MCV MCH RDW Plt Count 83 L Monocytes % (Manual) Nucleated RBC % Seg Neutrophils # Man Monocytes # (Manual) BUN Creatinine ALT 6 L Lactate Dehydrogenase 361 H Total Protein 6.2 L Albumin 3.2 L Urine Creatinine Ur Total Protein 24 Hr Urine Total Protein 11/21/16 11/22/16 19:40 20:05 WBC 12.0 H RBC 2.48 L 2.53 L Hgb 8.6 L 8.8 L Hct 25.4 L 26.3 L MCV 102 H 104 H MCH 35 H 35 H RDW 17.6 H 17.6 H Plt Count 87 L 91 L Monocytes % (Manual) 8.0 H Nucleated RBC % 6.0 H 3.0 H Seg Neutrophils # Man 8.0 H Monocytes # (Manual) 1.0 H BUN Creatinine ALT Lactate Dehydrogenase Total Protein Albumin Urine Creatinine Ur Total Protein 24 Hr Urine Total Protein Laboratory Results - last 24 hr 11/22/16 20:05 WBC 12.0 H RBC 2.53 L Hgb 8.8 L Hct 26.3 L MCV 104 H MCH 35 H MCHC 34 RDW 17.6 H Plt Count 91 L Add Manual Diff Complete Total Counted 100 Seg Neuts % (Manual) 67.0 Band Neutrophils % 0 Lymphocytes % (Manual) 21.0 Reactive Lymphs % (Man) 0 Monocytes % (Manual) 8.0 H Eosinophils % (Manual) 0 Basophils % (Manual) 0 Metamyelocytes % 3.0 Myelocytes % 1.0 Promyelocytes % 0 Blast Cells % 0 Nucleated RBC % 3.0 H Seg Neutrophils # Man 8.0 H Band Neutrophils # 0.0 Lymphocytes # (Manual) 2.5 Abs React Lymphs (Man) 0.0 Monocytes # (Manual) 1.0 H Eosinophils # (Manual) 0.0 Basophils # (Manual) 0.0 Metamyelocytes # 0.4 Myelocytes # 0.1 Promyelocytes # 0.0 Blast Cells # 0.0 WBC Morphology Not Reportable Hypersegmented Neuts Not Reportable Hyposegmented Neuts Not Reportable Hypogranular Neuts Not Reportable Smudge Cells Not Reportable Toxic Granulation Not Reportable Toxic Vacuolation Not Reportable Dohle Bodies Not Reportable Pelger-Huet Anomaly Not Reportable Allan Rods Not Reportable Platelet Estimate Appe Clumped Platelets Not Reportable Plt Clumps, EDTA Not Reportable Large Platelets Few Giant Platelets Not Reportable Platelet Satelliting Not Reportable Plt Morphology Comment Not Reportable RBC Morphology Not Reportable Dimorphic RBCs Not Reportable Polychromasia 1+ Hypochromasia Not Reportable Poikilocytosis Not Reportable Anisocytosis Not Reportable Microcytosis 1+ Macrocytosis 1+ Spherocytes Not Reportable Pappenheimer Bodies Not Reportable Sickle Cells Not Reportable Target Cells Not Reportable Tear Drop Cells Not Reportable Ovalocytes Not Reportable Helmet Cells Not Reportable [place] Bodies Not Reportable [place] Rings Not Reportable [place] Cells Not Reportable Bite Cells Not Reportable Crenated Cell Not Reportable Elliptocytes Not Reportable Acanthocytes (Spur) Not Reportable Rouleaux Not Reportable Hemoglobin C Crystals Not Reportable Schistocytes Few Malaria parasites Not Reportable Yannick Bodies Not Reportable Hem Pathologist Commnt No
[2016-11-23] MEDS: NORMODYNE PO SCH ×2 (10:52→21:54)
[2016-11-23] MEDS: PRENATAL VITAMIN PO SCH (10:52)
--- NOTE | 2016-11-23 16:53 | Event Note ---
Date: 11/23/16 Agree with note and exam. Con't current management. Pt stable at this time.
--- NOTE | 2016-11-23 17:48 | Consultation ---
History of Present Illness - Reason for Consult Consult date: 11/23/16 - History of Present Illness Patient seen/examined, labs reviewed, case d/w with patient, and the OB attending.both the attending, and I have agreed that id she was going to be induced by 34week, which will be next week sunday., then we will need to bring the PLT up, even though it is slowly but surely coming up on its own. I will try her on some steroid, and may add PLT if not improving fast enough. Medications and Allergies Allergies Allergy/AdvReac Type Severity Reaction Status Date / Time No Known Allergies Allergy Verified 11/21/16 06:18 Home Medications Medication Instructions Recorded Confirmed Last Taken Type Vit-Fe Fumar-FA [ 1 tab PO QDAY 10/25/16 11/20/16 11/17/16 12: 00 History Vitamin] 1 tab Active Meds: Active Medications Acetaminophen (Tylenol) 650 mg PO Q4H PRN PRN Reason: Pain MILD(1-3)/Fever >100.5/KONG Last Admin: 11/20/16 03:55 Dose: 650 mg Al Hydrox/Mg Hydrox/Simethicone (Alum-Mag Hydrox-Simeth [phone]/5ml) 30 ml PO Q6H PRN PRN Reason: Indigestion Docusate Sodium (Colace) 100 mg PO Q12H PRN PRN Reason: Constipation Hydrocortisone Acetate (Proctosol-Hc) 1 applic [place] Q8H PRN PRN Reason: Hemorrhoids Lactated Ringer's (Lactated Ringers) 1,000 mls @ 125 mls/hr IV DIRECT [facility] Last Admin: 11/19/16 16:17 Dose: 125 mls/hr Labetalol HCl (Normodyne) 200 mg PO BID [facility] Last Admin: 11/23/16 10:52 Dose: 200 mg Magnesium Hydroxide (Milk Of Magnesia) 30 ml PO QHS PRN PRN Reason: Laxative Effect Multivitamins/Iron/Calcium ( Vitamin) 1 each PO QDAY [facility] Last Admin: 11/23/16 10:52 Dose: 1 each Ondansetron HCl (Zofran) 4 mg IV Q6H PRN PRN Reason: Nausea And Vomiting Zolpidem Tartrate (Ambien) 10 mg PO ONCE PRN PRN Reason: Sleep Last Admin: 11/22/16 02:22 Dose: 10 mg Review of Systems Breasts: deferred Exam - Constitutional Vitals: Temp Pulse Resp BP Pulse Ox 98.1 F 75 18 158/89 100 11/23/16 11:55 11/23/16 16:57 11/23/16 11:55 11/23/16 16:57 11/23/16 16:57 General appearance: Present: no acute distress, well-nourished - EENT Eyes: Present: PERRL ENT: hearing intact, clear oral mucosa - Neck Neck: Present: supple, normal ROM - Respiratory Respiratory effort: normal Respiratory: bilateral: CTA - Cardiovascular Heart Sounds: Present: S1 & S2. Absent: rub, click - Extremities Extremities: pulses symmetrical, No edema Peripheral Pulses: within normal limits - Abdominal General gastrointestinal: Present: soft, non-tender, non-distended, normal bowel sounds Female genitourinary: Present: deferred, normal, lesions - Rectal Rectal Exam: deferred - Integumentary Integumentary: Present: clear, warm, dry - Musculoskeletal Musculoskeletal: gait normal, strength equal bilaterally - Psychiatric Psychiatric: appropriate mood/affect, intact judgment & insight - Neurologic Neurologic: CNII-XII intact, moves all extremities Results - Labs CBC & Chem 7: 11/22/16 20:05 11/20/16 06:00 Labs: Abnormal lab results 11/22/16 Range/Units 20:05 WBC 12.0 H (4.5-11.0) K/mm3 RBC 2.53 L (3.65-5.03) M/mm3 Hgb 8.8 L (10.1-14.3) gm/dl Hct 26.3 L (30.3-42.9) % MCV 104 H (79-97) fl MCH 35 H (28-32) pg RDW 17.6 H (13.2-15.2) % Plt Count 91 L (140-440) K/mm3 Monocytes % (Manual) 8.0 H (0.0-7.3) % Nucleated RBC % 3.0 H (0.0-0.9) % Seg Neutrophils # Man 8.0 H (1.8-7.7) K/mm3 Monocytes # (Manual) 1.0 H (0.0-0.8) K/mm3 Assessment and Plan - Patient Problems (1) 32 weeks gestation of Current Visit: Yes Status: Acute Plan to address problem: Deffer to the KARATE BLACK BELT (2) Thrombocytopenia complicating Current Visit: Yes Status: Acute Plan to address problem: This may be part of pre eclampsia., see some lab order. If needed, ie PLT less or equal to 20,000, or symptomatic. Awaiting new lab results. so far, PLT improved a bit. SEE note above.
[2016-11-23 19:55] LABS: Hematocrit 26.2 % (30.3-42.9); Hemoglobin 8.5 gm/dl (10.1-14.3); Mean Corpuscular HGB Conc 33 % (30-34); Mean Corpuscular Hemoglobin 33 pg (28-32); Mean Corpuscular Volume 103 fl (79-97); Red Blood Count 2.54 M/mm3 (3.65-5.03); Red Cell Distribution Width 17.8 % (13.2-15.2); White Blood Count 10.7 K/mm3 (4.5-11.0)
[2016-11-23 21:15] LABS: Basophils % (Manual) 0 % (0.0-1.8); Blastocytes % (Manual) 0 %; Eosinophils % (Manual) 0 % (0.0-4.3)
[2016-11-23 21:18] LABS: Helmet Cells 1+; Polychromasia 1+
[2016-11-23 21:19] LABS: Macrocytosis 1+
[2016-11-23 21:20] LABS: Large Platelets 1+; Schistocytes Few
[2016-11-23 21:21] LABS: Diff Status Complete; Microcytosis 1+; Platelet Estimate Appears Decreased
[2016-11-23 21:22] LABS: Platelet Count 92 K/mm3 (140-440)
[2016-11-23] MEDS: TYLENOL PO PRN (22:00)
--- NOTE | 2016-11-24 07:43 | Progress Note ---
Assessment and Plan Patient resting in bed, unhappy with care from nursing staff. states "I can do all this at home." Patient is aware that she is able to leave against medical advice. Offered wheelchair ride outside today when visitor comes. Reviewed plan of care for today and expected plan for tomorrow. pt verbalizes understanding. Asked CN Nita to round on patient today. - Patient Problems (1) 32 weeks gestation of Current Visit: Yes Status: Acute (2) Hypertension affecting in third trimester Current Visit: No Status: Acute (3) Pre-eclampsia superimposed on chronic hypertension, antepartum Current Visit: No Status: Acute Plan to address problem: pre-e labs and BPP tomorrow currently denies KONG, blurred vision or epigastric pain (4) Thrombocytopenia affecting , antepartum Current Visit: Yes Status: Acute Plan to address problem: solu-medrol 40mg q8h managed by hematology Subjective - Subjective Date of service: 11/24/16 Principal diagnosis: IUP 32w5d, CHTN w/superimposed preeclampsia Patient reports: movement normal, other (denies KONG, visual changes or epigastric pain), no new complaints, no loss of fluid, no vaginal bleeding, no contractions Objective - Vital Signs Vital Signs: Vital Signs - 12hr 11/23/16 11/23/16 11/23/16 19:52 19:53 20:56 Temperature 97.8 F Pulse Rate 84 83 82 Respiratory Rate Blood Pressure 177/90 155/91 166/94 11/23/16 11/23/16 11/23/16 21:54 21:55 22:00 Temperature Pulse Rate 88 88 Respiratory 20 Rate Blood Pressure 168/93 168/93 11/23/16 11/23/16 11/24/16 22:56 23:56 01:56 Temperature Pulse Rate 79 85 90 Respiratory Rate Blood Pressure 135/82 140/93 122/68 11/24/16 11/24/16 03:00 04:56 Temperature 97.6 F Pulse Rate 82 77 Respiratory Rate Blood Pressure 155/84 120/65 - Exam Breasts: normal Cardiovascular: Regular rate Lungs: Clear to auscultation, Normal air movement Abdomen: Present: normal appearance, soft Vulva: both: normal Uterus: Present: normal FHR: auscultation normal (NST reactive) Uterine Contraction Pattern: Absent Uterine Tone Measurement Phase: Resting Extremities: normal Deep Tendon Reflex Grade: Normal +2 - Labs Labs: Abnormal Labs 11/18/16 11/18/16 11/19/16 05:15 05:15 08:22 WBC RBC 2.82 L 2.67 L Hgb 9.7 L 9.0 L Hct 28.4 L 27.2 L MCV 101 H 102 H MCH 34 H 34 H RDW 16.4 H 17.0 H Plt Count 86 L 80 L Monocytes % (Manual) Nucleated RBC % Seg Neutrophils # Man Monocytes # (Manual) Factor VIII:C Activity BUN Creatinine 0.3 L ALT Lactate Dehydrogenase 315 H Total Protein Albumin Urine Creatinine Ur Total Protein 24 Hr Urine Total Protein 11/19/16 11/20/16 11/20/16 Unknown 06:00 06:00 WBC RBC 2.59 L Hgb 8.9 L Hct 26.4 L MCV 102 H MCH 35 H RDW 16.9 H Plt Count 74 L Monocytes % (Manual) Nucleated RBC % Seg Neutrophils # Man Monocytes # (Manual) Factor VIII:C Activity BUN 6 L Creatinine 0.3 L ALT 5 L Lactate Dehydrogenase Total Protein 6.1 L Albumin 3.1 L Urine Creatinine 57.5 H Ur Total Protein 24 Hr 1792.00 H Urine Total Protein 64 H 11/21/16 11/21/16 11/21/16 06:49 19:40 19:40 WBC RBC Hgb Hct MCV MCH RDW Plt Count 83 L Monocytes % (Manual) Nucleated RBC % Seg Neutrophils # Man Monocytes # (Manual) Factor VIII:C Activity BUN Creatinine ALT 6 L Lactate Dehydrogenase 361 H Total Protein 6.2 L Albumin 3.2 L Urine Creatinine Ur Total Protein 24 Hr Urine Total Protein 11/21/16 11/21/16 11/22/16 19:40 19:40 20:05 WBC 12.0 H RBC 2.48 L 2.53 L Hgb 8.6 L 8.8 L Hct 25.4 L 26.3 L MCV 102 H 104 H MCH 35 H 35 H RDW 17.6 H 17.6 H Plt Count 87 L 91 L Monocytes % (Manual) 8.0 H Nucleated RBC % 6.0 H 3.0 H Seg Neutrophils # Man 8.0 H Monocytes # (Manual) 1.0 H Factor VIII:C Activity 223 H BUN Creatinine ALT Lactate Dehydrogenase Total Protein Albumin Urine Creatinine Ur Total Protein 24 Hr Urine Total Protein 11/23/16 18:40 WBC RBC 2.54 L Hgb 8.5 L Hct 26.2 L MCV 103 H MCH 33 H RDW 17.8 H Plt Count 92 L Monocytes % (Manual) Nucleated RBC % 6.0 H Seg Neutrophils # Man Monocytes # (Manual) Factor VIII:C Activity BUN Creatinine ALT Lactate Dehydrogenase Total Protein Albumin Urine Creatinine Ur Total Protein 24 Hr Urine Total Protein Laboratory Results - last 24 hr 11/21/16 11/23/16 19:40 18:40 WBC 10.7 RBC 2.54 L Hgb 8.5 L Hct 26.2 L MCV 103 H MCH 33 H MCHC 33 RDW 17.8 H Plt Count 92 L Add Manual Diff Complete Total Counted 100 Seg Neuts % (Manual) 57.0 Band Neutrophils % 0 Lymphocytes % (Manual) 33.0 Reactive Lymphs % (Man) 0 Monocytes % (Manual) 7.0 Eosinophils % (Manual) 0 Basophils % (Manual) 0 Metamyelocytes % 2.0 Myelocytes % 1.0 Promyelocytes % 0 Blast Cells % 0 Nucleated RBC % 6.0 H Seg Neutrophils # Man 6.1 Band Neutrophils # 0.0 Lymphocytes # (Manual) 3.5 Abs React Lymphs (Man) 0.0 Monocytes # (Manual) 0.7 Eosinophils # (Manual) 0.0 Basophils # (Manual) 0.0 Metamyelocytes # 0.2 Myelocytes # 0.1 Promyelocytes # 0.0 Blast Cells # 0.0 WBC Morphology Not Reportable Hypersegmented Neuts Not Reportable Hyposegmented Neuts Not Reportable Hypogranular Neuts Not Reportable Smudge Cells Not Reportable Toxic Granulation Not Reportable Toxic Vacuolation Not Reportable Dohle Bodies Not Reportable Pelger-Huet Anomaly Not Reportable Allan Rods Not Reportable Platelet Estimate Appears decreased Clumped Platelets Not Reportable Plt Clumps, EDTA Not Reportable Large Platelets 1+ Giant Platelets Not Reportable Platelet Satelliting Not Reportable Plt Morphology Comment Not Reportable RBC Morphology Not Reportable Dimorphic RBCs Not Reportable Polychromasia 1+ Hypochromasia Not Reportable Poikilocytosis Not Reportable Anisocytosis Not Reportable Microcytosis 1+ Macrocytosis 1+ Spherocytes Not Reportable Pappenheimer Bodies Not Reportable Sickle Cells Not Reportable Target Cells Not Reportable Tear Drop Cells Not Reportable Ovalocytes Not Reportable Helmet Cells 1+ Ho-[place] Bodies Not Reportable Lena Rings Not Reportable [place] Cells Not Reportable Bite Cells Not Reportable Crenated Cell Not Reportable Elliptocytes Not Reportable Acanthocytes (Spur) Not Reportable Rouleaux Not Reportable Hemoglobin C Crystals Not Reportable Schistocytes Few Malaria parasites Not Reportable Yannick Bodies Not Reportable Hem Pathologist Commnt No Factor VIII:C Activity 223 H
[2016-11-24] MEDS ORDERED: DEEP SEA NS PRN (08:30)
--- NOTE | 2016-11-24 09:42 | Admit Criteria Form ---
Admission Criteria Documentation: OBSTETRIC AND GYNECOLOGIC DISEASE GRG Clinical Indications for Admission to Inpatient Care (Place 'X' for any and all applicable criteria): Hospital admission is needed for appropriate care of the patient because of ANY ONE of the following (1)(2)(3): [ ]I. Hemodynamic instability, as indicated by ALL of the following (1)(2)(3)( 4)(5): [ ]a) Vital signs or other findings not as expected for chronic patient condition or baseline [ ]b) Instability indicated by ANY ONE of the following: [ ]i) Hypotension [ ]ii) Symptomatic tachycardia unresponsive to treatment (eg, analgesia, fluids, sedation as indicated) [ ]iii) Inadequate perfusion indicated by ANY ONE of the following: [ ]A. Lactic acidosis (greater than 2 mmol/ L) [ ]B. New abnormal capillary refill ( greater than 3 seconds) [ ]C. Reduced urine output [ ]D. New altered mental status [ ]iv) Orthostatic vital sign changes unresponsive to treatment (eg, fluids) [ ]v) Multiple IV fluid boluses required to maintain adequate blood pressure or perfusion [ ]vi) IV inotropic or vasopressor medication required to maintain adequate blood pressure or perfusion [ ]II. Obstetric infection requiring hospitalization indicated by ANY ONE of the following(13)(14): [ ]a) Chorioamnionitis [ ]b) Endometritis (except mild endometritis) [ ]c) Pelvic abscess [ ]d) Peritonitis [ ]e) Septic pelvic thrombophlebitis [ ]III. Amniotic fluid or pulmonary embolism(4)(5)(6) [ ]IV. Suspected peritonitis or ectopic requiring monitoring beyond scope of 24 hours or observation care(7)(8) [ ]V. compromise requiring hospitalization indicated by ALL of the following(9)(10): [ ]a) compromise indicated by ANY ONE of the following(11): [ ]i) Abnormal heart rate monitoring [ ]ii) Abnormal contraction stress test [ ]iii) Abnormal biophysical profile [ ]iv) Abnormal Doppler flow in vessels (ie, Doppler velocimetry) (12) [ ]b) Persistence of compromise indicators during evaluation and observation monitoring [ ]. Ovarian hyperstimulation syndrome requiring hospitalization[A] indicated by ALL of the following(15): [ ]a) Recent ovarian stimulation with gonadotropins, or evidence on ultrasound of spontaneous emergence of large number of ovarian follicles [ ]b) Evidence of severe ovarian hyperstimulation syndrome indicated by ANY ONE of the following: [ ]i) Abdominal pain unresponsive to oral therapy [ ]ii) Acute respiratory distress syndrome [ ]iii) Electrolyte imbalance ( eg, hyponatremia, hyperkalemia) [ ]iv) Elevated liver enzymes [ ]v) Evidence of thromboembolism [ ]vi) Hemoconcentration (hematocrit greater than 45 % (0.45)) [ ]vii) Inability to maintain oral intake adequate to prevent hemoconcentration [ ]viii) Marked hypotension from baseline (eg, SBP 20 mmHg below patients usual pressure) [ ]ix) Oliguria or anuria [ ]x) Ovarian torsion [ ]xi) Pleural or pericardial effusion on x-ray or echocardiogram [ ]xii) Rapid increase in serum creatinine to greater than 1.2 mg/dL (106 micromoles/L) or creatinine clearance less than 50 mL/min/1.73m2 (0.84 mL/ sec/1.73m2) [ ]xiii) Ruptured ovarian cyst with hemorrhage [ ]xiv) Severe abdominal pain or peritoneal signs [ ]xv) Tense ascites that cannot be managed with paracentesis in outpatient setting [ ]VII.Pelvic infection requiring hospitalization indicated by ANY ONE of the following (16): [ ]a) Outpatient treatment has failed or is not appropriate (eg, inpatient monitoring required) [ ]b) Pelvic abscess [ ]c) Surgical emergency cannot be excluded (eg, rigid abdomen) [ ]d) Vomiting precluding outpatient and observation care management VIII. loss complications requiring inpatient medical treatment indicated by ANY ONE of the following (4)(7)(9): [ ]a) Fever [ ]b) Peritonitis [ ]c) Sepsis [ ]d) Severe abdominal pain [ ]IX. or patient requiring monitoring for severe heart failure, pulmonary disease, or other comorbid condition (eg, peripartum cardiomyopathy) (4)(17) [ ]X. patient with rupture of membranes requiring hospitalization indicated by ANY ONE of the following: [ ]a) Chorioamnionitis, cloudy amniotic fluid, or other evidence of infection [ ]b) compromise or other need for monitoring (11) [ ]c) Gestation longer than 23 weeks and ANY ONE of the following: [ ]i) Abnormal (noncephalic) presentation [ ]ii) Inadequate home environment (eg, home too far from hospital, unable to rapidly return to hospital) [ ]d) Temperature greater than 100.4 degrees F (38 degrees C)( oral) [ ]e) Threatened labor requiring monitoring beyond scope (eg, over 24 hours) of observation Care [ ] XI. complications, including severe lacerations, infections, or retained placenta (19) [ ] XII.Uterine bleeding with high-risk features indicated by ANY ONE of the following (4): [ ]a) Active major hemorrhage (eg, hemorrhage) [ ]b) Coagulopathy with active bleeding [ ]c) Gestational trophoblastic disease (eg, molar ) (20 ) [ ]d) (longer than 23 weeks) and ANY ONE of the following: [ ]i) Pain [ ]ii) Placental abruption, known or suspected [ ]iii) Placenta accrete, known or suspected(21) [ ]iv) Placenta previa, known or suspected [ ]v) Vasa previa [ ]e) Severe anemia [ X]XIII. Obstetric or Gynecologic Disease, condition or symptom for which ANY ONE of the following: [ X]a) Emergency and observation care have failed or are not considered appropriate ( Also use General Criteria: Observation Care Criteria as appropriate) [ ]b) Presence of a General Admission Criteria or Pediatric General Admission Criteria The original [facility] [employer] content created by [facility] has been revised. The portions of the content which have been revised are identified through the use of italic text or in bold, and [facility] has neither reviewed nor approved the modified material.All other unmodified content is copyright [facility]. Please see references footnoted in the original [facility] edition 2016 Admission Criteria Met: Yes
[2016-11-24] MEDS: PRENATAL VITAMIN PO SCH (10:09)
[2016-11-24] MEDS: NORMODYNE PO SCH ×2 (10:10→21:39)
--- NOTE | 2016-11-24 12:54 | Progress Note ---
Assessment and Plan Assessment 1. 32+6 2. Chronic HTN with super-imposed pre-eclampsia (with severe features based on BP) 3. Thrombocytopenia, suspected gestational 4. Anemia, severe Recommendations 1. No change in BP meds 2. Labs q 2-3 days 3. BPP twice weekly 4. Iron and vitamins 5. Indications for delivery: inability to control BP, HELLP, pulmonary edema, 34 weeks Subjective - Subjective Principal diagnosis: IUP 32w5d, CHTN w/superimposed preeclampsia Patient reports: movement normal, other (denies KONG, visual changes or epigastric pain), no new complaints, no loss of fluid, no vaginal bleeding, no contractions Objective - Vital Signs Vital Signs: Vital Signs - 12hr 11/24/16 11/24/16 11/24/16 01:56 03:00 04:56 Temperature 97.6 F Pulse Rate 90 82 77 Pulse Rate [ Right From Monitor] Respiratory Rate Blood Pressure 122/68 155/84 120/65 Blood Pressure [Right Arm] 11/24/16 11/24/16 11/24/16 07:40 07:41 10:10 Temperature 97.5 F L Pulse Rate 76 83 76 Pulse Rate [ 76 Right From Monitor] Respiratory 16 Rate Blood Pressure 169/90 138/81 138/81 Blood Pressure 138/81 [Right Arm] 11/24/16 11:50 Temperature Pulse Rate 80 Pulse Rate [ Right From Monitor] Respiratory Rate Blood Pressure 138/85 Blood Pressure [Right Arm] - Exam Abdomen: Present: normal appearance, soft FHR: category 1 - Labs Labs: Abnormal Labs 11/18/16 11/18/16 11/19/16 05:15 05:15 08:22 WBC RBC 2.82 L 2.67 L Hgb 9.7 L 9.0 L Hct 28.4 L 27.2 L MCV 101 H 102 H MCH 34 H 34 H RDW 16.4 H 17.0 H Plt Count 86 L 80 L Monocytes % (Manual) Nucleated RBC % Seg Neutrophils # Man Monocytes # (Manual) Factor VIII:C Activity BUN Creatinine 0.3 L ALT Lactate Dehydrogenase 315 H Total Protein Albumin Urine Creatinine Ur Total Protein 24 Hr Urine Total Protein 11/19/16 11/20/16 11/20/16 Unknown 06:00 06:00 WBC RBC 2.59 L Hgb 8.9 L Hct 26.4 L MCV 102 H MCH 35 H RDW 16.9 H Plt Count 74 L Monocytes % (Manual) Nucleated RBC % Seg Neutrophils # Man Monocytes # (Manual) Factor VIII:C Activity BUN 6 L Creatinine 0.3 L ALT 5 L Lactate Dehydrogenase Total Protein 6.1 L Albumin 3.1 L Urine Creatinine 57.5 H Ur Total Protein 24 Hr 1792.00 H Urine Total Protein 64 H 11/21/16 11/21/16 11/21/16 06:49 19:40 19:40 WBC RBC Hgb Hct MCV MCH RDW Plt Count 83 L Monocytes % (Manual) Nucleated RBC % Seg Neutrophils # Man Monocytes # (Manual) Factor VIII:C Activity BUN Creatinine ALT 6 L Lactate Dehydrogenase 361 H Total Protein 6.2 L Albumin 3.2 L Urine Creatinine Ur Total Protein 24 Hr Urine Total Protein 11/21/16 11/21/16 11/22/16 19:40 19:40 20:05 WBC 12.0 H RBC 2.48 L 2.53 L Hgb 8.6 L 8.8 L Hct 25.4 L 26.3 L MCV 102 H 104 H MCH 35 H 35 H RDW 17.6 H 17.6 H Plt Count 87 L 91 L Monocytes % (Manual) 8.0 H Nucleated RBC % 6.0 H 3.0 H Seg Neutrophils # Man 8.0 H Monocytes # (Manual) 1.0 H Factor VIII:C Activity 223 H BUN Creatinine ALT Lactate Dehydrogenase Total Protein Albumin Urine Creatinine Ur Total Protein 24 Hr Urine Total Protein 11/23/16 18:40 WBC RBC 2.54 L Hgb 8.5 L Hct 26.2 L MCV 103 H MCH 33 H RDW 17.8 H Plt Count 92 L Monocytes % (Manual) Nucleated RBC % 6.0 H Seg Neutrophils # Man Monocytes # (Manual) Factor VIII:C Activity BUN Creatinine ALT Lactate Dehydrogenase Total Protein Albumin Urine Creatinine Ur Total Protein 24 Hr Urine Total Protein Laboratory Results - last 24 hr 11/21/16 11/23/16 19:40 18:40 WBC 10.7 RBC 2.54 L Hgb 8.5 L Hct 26.2 L MCV 103 H MCH 33 H MCHC 33 RDW 17.8 H Plt Count 92 L Add Manual Diff Complete Total Counted 100 Seg Neuts % (Manual) 57.0 Band Neutrophils % 0 Lymphocytes % (Manual) 33.0 Reactive Lymphs % (Man) 0 Monocytes % (Manual) 7.0 Eosinophils % (Manual) 0 Basophils % (Manual) 0 Metamyelocytes % 2.0 Myelocytes % 1.0 Promyelocytes % 0 Blast Cells % 0 Nucleated RBC % 6.0 H Seg Neutrophils # Man 6.1 Band Neutrophils # 0.0 Lymphocytes # (Manual) 3.5 Abs React Lymphs (Man) 0.0 Monocytes # (Manual) 0.7 Eosinophils # (Manual) 0.0 Basophils # (Manual) 0.0 Metamyelocytes # 0.2 Myelocytes # 0.1 Promyelocytes # 0.0 Blast Cells # 0.0 WBC Morphology Not Reportable Hypersegmented Neuts Not Reportable Hyposegmented Neuts Not Reportable Hypogranular Neuts Not Reportable Smudge Cells Not Reportable Toxic Granulation Not Reportable Toxic Vacuolation Not Reportable Dohle Bodies Not Reportable Pelger-Huet Anomaly Not Reportable Allan Rods Not Reportable Platelet Estimate Appears decreased Clumped Platelets Not Reportable Plt Clumps, EDTA Not Reportable Large Platelets 1+ Giant Platelets Not Reportable Platelet Satelliting Not Reportable Plt Morphology Comment Not Reportable RBC Morphology Not Reportable Dimorphic RBCs Not Reportable Polychromasia 1+ Hypochromasia Not Reportable Poikilocytosis Not Reportable Anisocytosis Not Reportable Microcytosis 1+ Macrocytosis 1+ Spherocytes Not Reportable Pappenheimer Bodies Not Reportable Sickle Cells Not Reportable Target Cells Not Reportable Tear Drop Cells Not Reportable Ovalocytes Not Reportable Helmet Cells 1+ Ho-[place] Bodies Not Reportable [place] Rings Not Reportable [place]iola Cells Not Reportable Bite Cells Not Reportable Crenated Cell Not Reportable Elliptocytes Not Reportable Acanthocytes (Spur) Not Reportable Rouleaux Not Reportable Hemoglobin C Crystals Not Reportable Schistocytes Few Malaria parasites Not Reportable Yannick Bodies Not Reportable Hem Pathologist Commnt No Factor VIII:C Activity 223 H
--- NOTE | 2016-11-24 13:59 | Event Note ---
Date: 11/24/16 [facility]
[2016-11-24 20:07] LABS: Hemoglobin 8.6 gm/dl (10.1-14.3); Mean Corpuscular HGB Conc 33 % (30-34); Mean Corpuscular Hemoglobin 35 pg (28-32); Mean Corpuscular Volume 105 fl (79-97); Platelet Count 102 K/mm3 (140-440); Red Blood Count 2.48 M/mm3 (3.65-5.03); Red Cell Distribution Width 17.5 % (13.2-15.2); White Blood Count 14.6 K/mm3 (4.5-11.0)
[2016-11-24 21:25] LABS: Blastocytes % (Manual) 0 %
[2016-11-24 21:26] LABS: Basophils % (Manual) 0 % (0.0-1.8); Eosinophils % (Manual) 0 % (0.0-4.3)
[2016-11-24 21:30] LABS: Anisocytosis 3+
[2016-11-24 21:31] LABS: Poikilocytosis 2+; Polychromasia 1+; Schistocytes 1+
[2016-11-24 21:33] LABS: Crenated RBC 1+; Diff Status Complete; Elliptocytes Few; Giant Platelets Few; Large Platelets 1+; Platelet Estimate Consistent w Auto
[2016-11-24] MEDS: AMBIEN PO PRN (22:32)
--- NOTE | 2016-11-24 23:39 | Consultation ---
History of Present Illness - Reason for Consult Consult date: 11/24/16 - History of Present Illness patient seen/examined, labs reviewed, case d/w patient and her spouse at the bed side, Q/A section done. She is tolerating steroid well.PLT is improving also. Medications and Allergies Allergies Allergy/AdvReac Type Severity Reaction Status Date / Time No Known Allergies Allergy Verified 11/21/16 06:18 Home Medications Medication Instructions Recorded Confirmed Last Taken Type Vit-Fe Fumar-FA [ 1 tab PO QDAY 10/25/16 11/20/16 11/17/16 12: 00 History Vitamin] 1 tab Active Meds: Active Medications Acetaminophen (Tylenol) 650 mg PO Q4H PRN PRN Reason: Pain MILD(1-3)/Fever >100.5/KONG Last Admin: 11/23/16 22:00 Dose: 650 mg Al Hydrox/Mg Hydrox/Simethicone (Alum-Mag Hydrox-Simeth [phone]/5ml) 30 ml PO Q6H PRN PRN Reason: Indigestion Docusate Sodium (Colace) 100 mg PO Q12H PRN PRN Reason: Constipation Hydrocortisone Acetate (Proctosol-Hc) 1 applic NE Q8H PRN PRN Reason: Hemorrhoids Lactated Ringer's (Lactated Ringers) 1,000 mls @ 125 mls/hr IV DIRECT [facility] Last Admin: 11/19/16 16:17 Dose: 125 mls/hr Labetalol HCl (Normodyne) 200 mg PO BID [facility] Last Admin: 11/24/16 21:39 Dose: 200 mg Magnesium Hydroxide (Milk Of Magnesia) 30 ml PO QHS PRN PRN Reason: Laxative Effect Methylprednisolone Sodium Succinate (Solu-Medrol) 40 mg IV Q8HR [facility] Last Admin: 11/24/16 21:39 Dose: 40 mg Multivitamins/Iron/Calcium ( Vitamin) 1 each PO QDAY [facility] Last Admin: 11/24/16 10:09 Dose: 1 each Ondansetron HCl (Zofran) 4 mg IV Q6H PRN PRN Reason: Nausea And Vomiting Sodium Chloride (Deep Sea) 1 spray NS PRN PRN PRN Reason: Dry Nasal Passages Last Admin: 11/24/16 11:54 Dose: 1 spray Zolpidem Tartrate (Ambien) 10 mg PO ONCE PRN PRN Reason: Sleep Last Admin: 11/24/16 22:32 Dose: 10 mg Review of Systems Breasts: deferred Exam - Constitutional Vitals: Temp Pulse Resp BP Pulse Ox 98.1 F 80 20 143/85 100 11/24/16 19:02 11/24/16 22:32 11/24/16 19:02 11/24/16 22:32 11/23/16 16:57 General appearance: Present: no acute distress, well-nourished - EENT Eyes: Present: PERRL ENT: hearing intact, clear oral mucosa - Neck Neck: Present: supple, normal ROM - Respiratory Respiratory effort: normal Respiratory: bilateral: CTA - Cardiovascular Heart Sounds: Present: S1 & S2. Absent: rub, click - Extremities Extremities: pulses symmetrical, No edema Peripheral Pulses: within normal limits - Abdominal General gastrointestinal: Present: soft, non-tender, non-distended, normal bowel sounds Female genitourinary: Present: deferred - Rectal Rectal Exam: deferred - Integumentary Integumentary: Present: clear, warm, dry - Musculoskeletal Musculoskeletal: gait normal, strength equal bilaterally - Psychiatric Psychiatric: appropriate mood/affect, intact judgment & insight - Neurologic Neurologic: CNII-XII intact, moves all extremities Results - Labs CBC & Chem 7: 11/24/16 19:06 11/20/16 06:00 Labs: Abnormal lab results 11/24/16 Range/Units 19:06 WBC 14.6 H (4.5-11.0) K/mm3 RBC 2.48 L (3.65-5.03) M/mm3 Hgb 8.6 L (10.1-14.3) gm/dl Hct 26.0 L (30.3-42.9) % MCV 105 H (79-97) fl MCH 35 H (28-32) pg RDW 17.5 H (13.2-15.2) % Plt Count 102 L (140-440) K/mm3 Seg Neuts % (Manual) 71.0 H (40.0-70.0) % Lymphocytes % (Manual) 11.0 L (13.4-35.0) % Nucleated RBC % 6.0 H (0.0-0.9) % Seg Neutrophils # Man 10.4 H (1.8-7.7) K/mm3 Assessment and Plan - Patient Problems (1) 32 weeks gestation of Current Visit: Yes Status: Acute Plan to address problem: Deffer to the WORM PICKER (2) Thrombocytopenia complicating Current Visit: Yes Status: Acute Plan to address problem: This may be part of pre eclampsia., see some lab order. If needed, ie PLT less or equal to 20,000, or symptomatic. Awaiting new lab results. so far, PLT improved a bit. SEE note above. PLT continues to improve. (3) Leukocytosis Current Visit: Yes Status: Acute Qualifiers: Leukocytosis type: L Plan to address problem: This is due to steroids.
--- NOTE | 2016-11-25 07:46 | Progress Note ---
Assessment and Plan patient resting, complaint today is regarding frequency of lab draw. Will consult Dr. Spence. Pre-e labs and BPP today. No Mixon, epigastric pain or visual changes. continue current plan of care. - Patient Problems (1) 32 weeks gestation of Current Visit: No Status: Resolved (2) Hypertension affecting in third trimester Current Visit: No Status: Acute (3) Pre-eclampsia superimposed on chronic hypertension, antepartum Current Visit: Yes Status: Acute Plan to address problem: del @ 34 weeks unless pre-e worsens continue pre-e labs q2-3 days (today) BPP biweekly (today) monitor b/p's q2h and if stable, may go to [id number] continue labetalol 200mg BID (4) Thrombocytopenia affecting , antepartum Current Visit: Yes Status: Acute Plan to address problem: solu-medrol 40mg IV q8h managed by hematology Platelets 102 11/24/16 (5) 33 weeks gestation of Current Visit: Yes Status: Acute Plan to address problem: NST qshift Subjective - Subjective Date of service: 11/25/16 (Binder[employer] Manager note) Principal diagnosis: IUP 33w0d, CHTN w/superimposed preeclampsia, thrombocytopenia Patient reports: movement normal, other (denies MIXON, visual changes or epigastric pain), no new complaints, no loss of fluid, no vaginal bleeding, no contractions Objective - Vital Signs Vital Signs: Vital Signs - 12hr 11/24/16 11/24/16 11/24/16 21:31 21:39 22:32 Temperature Pulse Rate 98 H 98 H 80 Respiratory Rate Blood Pressure 127/81 127/81 143/85 11/24/16 11/25/16 11/25/16 23:46 00:26 01:17 Temperature 97.9 F Pulse Rate 86 102 H Respiratory 18 Rate Blood Pressure 141/73 119/58 11/25/16 11/25/16 01:26 02:26 Temperature Pulse Rate 101 H 100 H Respiratory Rate Blood Pressure 117/64 134/69 - Exam Breasts: normal Cardiovascular: Regular rate (tracing reviewed from last NST - CAT 1) Lungs: Clear to auscultation Abdomen: Present: normal appearance, soft Vulva: both: normal Uterus: Present: normal FHR: category 1 Extremities: normal - Labs Labs: Abnormal Labs 0211/18/16 11/19/16 05:15 05:15 08:22 WBC RBC 2.82 L 2.67 L Hgb 9.7 L 9.0 L Hct 28.4 L 27.2 L MCV 101 H 102 H MCH 34 H 34 H RDW 16.4 H 17.0 H Plt Count 86 L 80 L Seg Neuts % (Manual) Lymphocytes % (Manual) Monocytes % (Manual) Nucleated RBC % Seg Neutrophils # Man Monocytes # (Manual) Factor VIII:C Activity BUN Creatinine 0.3 L ALT Lactate Dehydrogenase 315 H Total Protein Albumin Urine Creatinine Ur Total Protein 24 Hr Urine Total Protein 11/19/16 11/20/16 11/20/16 Unknown 06:00 06:00 WBC RBC 2.59 L Hgb 8.9 L Hct 26.4 L MCV 102 H MCH 35 H RDW 16.9 H Plt Count 74 L Seg Neuts % (Manual) Lymphocytes % (Manual) Monocytes % (Manual) Nucleated RBC % Seg Neutrophils # Man Monocytes # (Manual) Factor VIII:C Activity BUN 6 L Creatinine 0.3 L ALT 5 L Lactate Dehydrogenase Total Protein 6.1 L Albumin 3.1 L Urine Creatinine 57.5 H Ur Total Protein 24 Hr 1792.00 H Urine Total Protein 64 H 11/21/16 11/21/16 11/21/16 06:49 19:40 19:40 WBC RBC Hgb Hct MCV MCH RDW Plt Count 83 L Seg Neuts % (Manual) Lymphocytes % (Manual) Monocytes % (Manual) Nucleated RBC % Seg Neutrophils # Man Monocytes # (Manual) Factor VIII:C Activity BUN Creatinine ALT 6 L Lactate Dehydrogenase 361 H Total Protein 6.2 L Albumin 3.2 L Urine Creatinine Ur Total Protein 24 Hr Urine Total Protein 11/21/16 11/21/16 11/22/16 19:40 19:40 20:05 WBC 12.0 H RBC 2.48 L 2.53 L Hgb 8.6 L 8.8 L Hct 25.4 L 26.3 L MCV 102 H 104 H MCH 35 H 35 H RDW 17.6 H 17.6 H Plt Count 87 L 91 L Seg Neuts % (Manual) Lymphocytes % (Manual) Monocytes % (Manual) 8.0 H Nucleated RBC % 6.0 H 3.0 H Seg Neutrophils # Man 8.0 H Monocytes # (Manual) 1.0 H Factor VIII:C Activity 223 H BUN Creatinine ALT Lactate Dehydrogenase Total Protein Albumin Urine Creatinine Ur Total Protein 24 Hr Urine Total Protein 11/23/16 11/24/16 18:40 19:06 WBC 14.6 H RBC 2.54 L 2.48 L Hgb 8.5 L 8.6 L Hct 26.2 L 26.0 L MCV 103 H 105 H MCH 33 H 35 H RDW 17.8 H 17.5 H Plt Count 92 L 102 L Seg Neuts % (Manual) 71.0 H Lymphocytes % (Manual) 11.0 L Monocytes % (Manual) Nucleated RBC % 6.0 H 6.0 H Seg Neutrophils # Man 10.4 H Monocytes # (Manual) Factor VIII:C Activity BUN Creatinine ALT Lactate Dehydrogenase Total Protein Albumin Urine Creatinine Ur Total Protein 24 Hr Urine Total Protein Laboratory Results - last 24 hr 11/24/16 19:06 WBC 14.6 H RBC 2.48 L Hgb 8.6 L Hct 26.0 L MCV 105 H MCH 35 H MCHC 33 RDW 17.5 H Plt Count 102 L Add Manual Diff Complete Total Counted 100 Seg Neuts % (Manual) 71.0 H Band Neutrophils % 6.0 Lymphocytes % (Manual) 11.0 L Reactive Lymphs % (Man) 0 Monocytes % (Manual) 4.0 Eosinophils % (Manual) 0 Basophils % (Manual) 0 Metamyelocytes % 5.0 Myelocytes % 3.0 Promyelocytes % 0 Blast Cells % 0 Nucleated RBC % 6.0 H Seg Neutrophils # Man 10.4 H Band Neutrophils # 0.9 Lymphocytes # (Manual) 1.6 Abs React Lymphs (Man) 0.0 Monocytes # (Manual) 0.6 Eosinophils # (Manual) 0.0 Basophils # (Manual) 0.0 Metamyelocytes # 0.7 Myelocytes # 0.4 Promyelocytes # 0.0 Blast Cells # 0.0 WBC Morphology Not Reportable Hypersegmented Neuts Not Reportable Hyposegmented Neuts Not Reportable Hypogranular Neuts Not Reportable Smudge Cells Not Reportable Toxic Granulation Not Reportable Toxic Vacuolation Not Reportable Dohle Bodies Not Reportable Pelger-Huet Anomaly Not Reportable Allan Rods Not Reportable Platelet Estimate Consistent w auto Clumped Platelets Not Reportable Plt Clumps, EDTA Not Reportable Large Platelets 1+ Giant Platelets Few Platelet Satelliting Not Reportable Plt Morphology Comment Not Reportable RBC Morphology Not Reportable Dimorphic RBCs Not Reportable Polychromasia 1+ Hypochromasia Not Reportable Poikilocytosis 2+ Anisocytosis 3+ Microcytosis Not Reportable Macrocytosis Not Reportable Spherocytes Not Reportable Pappenheimer Bodies Not Reportable Sickle Cells Not Reportable Target Cells Not Reportable Tear Drop Cells Not Reportable Ovalocytes Not Reportable Helmet Cells Not Reportable Ho-Ecru Bodies Not Reportable [place] Rings Not Reportable Fabiola Cells Not Reportable Bite Cells Not Reportable Crenated Cell 1+ Elliptocytes Few Acanthocytes (Spur) Not Reportable Rouleaux Not Reportable Hemoglobin C Crystals Not Reportable Schistocytes 1+ Malaria parasites Not Reportable Yannick Bodies Not Reportable Hem Pathologist Commnt No
--- NOTE | 2016-11-25 08:14 | Progress Note ---
Assessment and Plan - Patient Problems (1) 33 weeks gestation of Current Visit: Yes Status: Acute (2) Leukocytosis Current Visit: Yes Status: Acute Qualifiers: Leukocytosis type: other Qualified Code(s): D72.828 - Other elevated white blood cell count Plan to address problem: probabaly d/t steroids (3) Pre-eclampsia superimposed on chronic hypertension, antepartum Current Visit: Yes Status: Acute Plan to address problem: 1. 33 weeks 2. Chronic HTN with super-imposed pre-eclampsia (with severe features based on BP) BP's stable on Labetalol 3. Thrombocytopenia, suspected gestational. Improved with Solumedrol 4. Anemia, severe stable 5. Sterilization consents in chart Recommendations 1. No change in BP meds 2. Labs q 2-3 days, pending 3. BPP twice weekly pending 4. Iron and vitamins 5. Indications for delivery: inability to control BP, HELLP, pulmonary edema, 34 weeks (4) Thrombocytopenia affecting , antepartum Current Visit: Yes Status: Acute Plan to address problem: Thrombocytopenia, suspected gestational. Improved with Solumedrol (5) Smoker Current Visit: No Status: Acute Subjective - Subjective Date of service: 11/25/16 Principal diagnosis: IUP 33w0d, CHTN w/superimposed preeclampsia, thrombocytopenia Interval history: Patient ambulating,stating she's going to the cafeteria because her orders have been incorrect. No complaints. Patient reports: movement normal, other (denies KONG, visual changes or epigastric pain), no new complaints, no loss of fluid, no vaginal bleeding, no contractions Objective - Vital Signs Vital Signs: Vital Signs - 12hr 11/24/16 11/24/16 11/24/16 21:31 21:39 22:32 Temperature Pulse Rate 98 H 98 H 80 Respiratory Rate Blood Pressure 127/81 127/81 143/85 11/24/16 11/25/16 11/25/16 23:46 00:26 01:17 Temperature 97.9 F Pulse Rate 86 102 H Respiratory 18 Rate Blood Pressure 141/73 119/58 11/25/16 11/25/16 01:26 02:26 Temperature Pulse Rate 101 H 100 H Respiratory Rate Blood Pressure 117/64 134/69 - Exam FHR: category 1 Uterine Contraction Monitor Mode: External Uterine Contraction Pattern: Absent - Labs Labs: Abnormal Labs 11/18/16 11/18/16 11/19/16 05:15 05:15 08:22 WBC RBC 2.82 L 2.67 L Hgb 9.7 L 9.0 L Hct 28.4 L 27.2 L MCV 101 H 102 H MCH 34 H 34 H RDW 16.4 H 17.0 H Plt Count 86 L 80 L Seg Neuts % (Manual) Lymphocytes % (Manual) Monocytes % (Manual) Nucleated RBC % Seg Neutrophils # Man Monocytes # (Manual) Factor VIII:C Activity BUN Creatinine 0.3 L ALT Lactate Dehydrogenase 315 H Total Protein Albumin Urine Creatinine Ur Total Protein 24 Hr Urine Total Protein 11/19/16 11/20/16 11/20/16 Unknown 06:00 06:00 WBC RBC 2.59 L Hgb 8.9 L Hct 26.4 L MCV 102 H MCH 35 H RDW 16.9 H Plt Count 74 L Seg Neuts % (Manual) Lymphocytes % (Manual) Monocytes % (Manual) Nucleated RBC % Seg Neutrophils # Man Monocytes # (Manual) Factor VIII:C Activity BUN 6 L Creatinine 0.3 L ALT 5 L Lactate Dehydrogenase Total Protein 6.1 L Albumin 3.1 L Urine Creatinine 57.5 H Ur Total Protein 24 Hr 1792.00 H Urine Total Protein 64 H 11/21/16 11/21/16 11/21/16 06:49 19:40 19:40 WBC RBC Hgb Hct MCV MCH RDW Plt Count 83 L Seg Neuts % (Manual) Lymphocytes % (Manual) Monocytes % (Manual) Nucleated RBC % Seg Neutrophils # Man Monocytes # (Manual) Factor VIII:C Activity BUN Creatinine ALT 6 L Lactate Dehydrogenase 361 H Total Protein 6.2 L Albumin 3.2 L Urine Creatinine Ur Total Protein 24 Hr Urine Total Protein 11/21/16 11/21/16 11/22/16 19:40 19:40 20:05 WBC 12.0 H RBC 2.48 L 2.53 L Hgb 8.6 L 8.8 L Hct 25.4 L 26.3 L MCV 102 H 104 H MCH 35 H 35 H RDW 17.6 H 17.6 H Plt Count 87 L 91 L Seg Neuts % (Manual) Lymphocytes % (Manual) Monocytes % (Manual) 8.0 H Nucleated RBC % 6.0 H 3.0 H Seg Neutrophils # Man 8.0 H Monocytes # (Manual) 1.0 H Factor VIII:C Activity 223 H BUN Creatinine ALT Lactate Dehydrogenase Total Protein Albumin Urine Creatinine Ur Total Protein 24 Hr Urine Total Protein 11/23/16 11/24/16 18:40 19:06 WBC 14.6 H RBC 2.54 L 2.48 L Hgb 8.5 L 8.6 L Hct 26.2 L 26.0 L MCV 103 H 105 H MCH 33 H 35 H RDW 17.8 H 17.5 H Plt Count 92 L 102 L Seg Neuts % (Manual) 71.0 H Lymphocytes % (Manual) 11.0 L Monocytes % (Manual) Nucleated RBC % 6.0 H 6.0 H Seg Neutrophils # Man 10.4 H Monocytes # (Manual) Factor VIII:C Activity BUN Creatinine ALT Lactate Dehydrogenase Total Protein Albumin Urine Creatinine Ur Total Protein 24 Hr Urine Total Protein Laboratory Results - last 24 hr 11/24/16 19:06 WBC 14.6 H RBC 2.48 L Hgb 8.6 L Hct 26.0 L MCV 105 H MCH 35 H MCHC 33 RDW 17.5 H Plt Count 102 L Add Manual Diff Complete Total Counted 100 Seg Neuts % (Manual) 71.0 H Band Neutrophils % 6.0 Lymphocytes % (Manual) 11.0 L Reactive Lymphs % (Man) 0 Monocytes % (Manual) 4.0 Eosinophils % (Manual) 0 Basophils % (Manual) 0 Metamyelocytes % 5.0 Myelocytes % 3.0 Promyelocytes % 0 Blast Cells % 0 Nucleated RBC % 6.0 H Seg Neutrophils # Man 10.4 H Band Neutrophils # 0.9 Lymphocytes # (Manual) 1.6 Abs React Lymphs (Man) 0.0 Monocytes # (Manual) 0.6 Eosinophils # (Manual) 0.0 Basophils # (Manual) 0.0 Metamyelocytes # 0.7 Myelocytes # 0.4 Promyelocytes # 0.0 Blast Cells # 0.0 WBC Morphology Not Reportable Hypersegmented Neuts Not Reportable Hyposegmented Neuts Not Reportable Hypogranular Neuts Not Reportable Smudge Cells Not Reportable Toxic Granulation Not Reportable Toxic Vacuolation Not Reportable Dohle Bodies Not Reportable Pelger-Huet Anomaly Not Reportable Allan Rods Not Reportable Platelet Estimate Consistent w auto Clumped Platelets Not Reportable Plt Clumps, EDTA Not Reportable Large Platelets 1+ Giant Platelets Few Platelet Satelliting Not Reportable Plt Morphology Comment Not Reportable RBC Morphology Not Reportable Dimorphic RBCs Not Reportable Polychromasia 1+ Hypochromasia Not Reportable Poikilocytosis 2+ Anisocytosis 3+ Microcytosis Not Reportable Macrocytosis Not Reportable Spherocytes Not Reportable Pappenheimer Bodies Not Reportable Sickle Cells Not Reportable Target Cells Not Reportable Tear Drop Cells Not Reportable Ovalocytes Not Reportable Helmet Cells Not Reportable Ho-[place] Bodies Not Reportable [place] Rings Not Reportable Fabiola Cells Not Reportable Bite Cells Not Reportable Crenated Cell 1+ Elliptocytes Few Acanthocytes (Spur) Not Reportable Rouleaux Not Reportable Hemoglobin C Crystals Not Reportable Schistocytes 1+ Malaria parasites Not Reportable Yannick Bodies Not Reportable Hem Pathologist Commnt No
[2016-11-25] MEDS: PRENATAL VITAMIN PO SCH (10:04)
[2016-11-25] MEDS: NORMODYNE PO SCH ×2 (10:07→22:02)
[2016-11-25 10:28] LABS: Hematocrit 26.6 % (30.3-42.9); Hemoglobin 8.6 gm/dl (10.1-14.3); Mean Corpuscular HGB Conc 32 % (30-34); Mean Corpuscular Hemoglobin 34 pg (28-32); Mean Corpuscular Volume 106 fl (79-97); Platelet Count 108 K/mm3 (140-440); Red Blood Count 2.52 M/mm3 (3.65-5.03); Red Cell Distribution Width 18.1 % (13.2-15.2); White Blood Count 15.1 K/mm3 (4.5-11.0)
[2016-11-25 10:38] LABS: Alanine Aminotransferase 9 units/L (7-56); Lactate Dehydrogenase 389 units/L (91-180); Uric Acid 5.1 mg/dL (3.5-7.6)
--- NOTE | 2016-11-25 11:08 | Ultrasound Report ---
BIOPHYSICAL PROFILE: 11/25/16 CLINICAL: Well Being FINDINGS: The biophysical profile was scored as followin - breathing movements 2 - movements 2 - posture and tone 2 - Qualitative amniotic fluid volume 8 - TOTAL SCORE OF POSSIBLE 8 Heart Rate (bpm) = 144 IMPRESSION: Normal study
[2016-11-25 11:56] LABS: Bacteria,Urine 2+ /HPF (Negative); Bilirubin,Urine NEG (Negative); Blood,Urine MOD (Negative); Ketones,Urine NEG (Negative); Leukocyte Esterase,Urine NEG (Negative); Nitrite,Urine NEG (Negative); Urobilinogen,Urine < 2.0 mg/dL (<2.0)
[2016-11-25 12:00] LABS: Anisocytosis 1+; Basophils % (Manual) 0 % (0.0-1.8); Blastocytes % (Manual) 0 %; Eosinophils % (Manual) 0 % (0.0-4.3)
[2016-11-25 12:03] LABS: Macrocytosis 1+
[2016-11-25 12:04] LABS: Diff Status Complete; Platelet Estimate Consistent w Auto; Schistocytes Few
--- NOTE | 2016-11-25 19:08 | Consultation ---
History of Present Illness - Reason for Consult Consult date: 11/25/16 - History of Present Illness came to see patient, who has been walking around. I have reviewed her labs. Medications and Allergies Allergies Allergy/AdvReac Type Severity Reaction Status Date / Time No Known Allergies Allergy Verified 11/21/16 06:18 Home Medications Medication Instructions Recorded Confirmed Last Taken Type Vit-Fe Fumar-FA [ 1 tab PO QDAY 10/25/16 11/20/16 11/17/16 12: 00 History Vitamin] 1 tab Active Meds: Active Medications Acetaminophen (Tylenol) 650 mg PO Q4H PRN PRN Reason: Pain MILD(1-3)/Fever >100.5/KONG Last Admin: 11/23/16 22:00 Dose: 650 mg Al Hydrox/Mg Hydrox/Simethicone (Alum-Mag Hydrox-Simeth 400-235-61gz/5ml) 30 ml PO Q6H PRN PRN Reason: Indigestion Docusate Sodium (Colace) 100 mg PO Q12H PRN PRN Reason: Constipation Hydrocortisone Acetate (Proctosol-Hc) 1 applic MI Q8H PRN PRN Reason: Hemorrhoids Lactated Ringer's (Lactated Ringers) 1,000 mls @ 125 mls/hr IV DIRECT OLIVIER Last Admin: 11/19/16 16:17 Dose: 125 mls/hr Labetalol HCl (Normodyne) 200 mg PO BID [facility] Last Admin: 11/25/16 10:07 Dose: 200 mg Magnesium Hydroxide (Milk Of Magnesia) 30 ml PO QHS PRN PRN Reason: Laxative Effect Methylprednisolone Sodium Succinate (Solu-Medrol) 40 mg IV Q8HR OLIVIER Last Admin: 11/25/16 14:24 Dose: 40 mg Multivitamins/Iron/Calcium ( Vitamin) 1 each PO QDAY OLIVIER Last Admin: 11/25/16 10:04 Dose: 1 each Ondansetron HCl (Zofran) 4 mg IV Q6H PRN PRN Reason: Nausea And Vomiting Sodium Chloride (Deep Sea) 1 spray NS PRN PRN PRN Reason: Dry Nasal Passages Last Admin: 11/24/16 11:54 Dose: 1 spray Zolpidem Tartrate (Ambien) 10 mg PO ONCE PRN PRN Reason: Sleep Last Admin: 11/24/16 22:32 Dose: 10 mg Review of Systems Breasts: deferred Exam - Constitutional Vitals: Temp Pulse Resp BP Pulse Ox 97.6 F 94 H 20 150/69 100 11/25/16 19:00 11/25/16 19:03 11/25/16 19:00 11/25/16 19:01 11/25/16 19:03 Results - Labs CBC & Chem 7: 11/25/16 08:51 11/25/16 08:51 Labs: Abnormal lab results 11/24/16 11/25/16 11/25/16 Range/Units 19:06 08:51 08:51 WBC 14.6 H 15.1 H (4.5-11.0) K/mm3 RBC 2.48 L 2.52 L (3.65-5.03) M/mm3 Hgb 8.6 L 8.6 L (10.1-14.3) gm/dl Hct 26.0 L 26.6 L (30.3-42.9) % MCV 105 H 106 H (79-97) fl MCH 35 H 34 H (28-32) pg RDW 17.5 H 18.1 H (13.2-15.2) % Plt Count 102 L 108 L (140-440) K/mm3 Seg Neuts % (Manual) 71.0 H 77.0 H (40.0-70.0) % Lymphocytes % (Manual) 11.0 L (13.4-35.0) % Monocytes % (Manual) 9.0 H (0.0-7.3) % Nucleated RBC % 6.0 H 4.0 H (0.0-0.9) % Seg Neutrophils # Man 10.4 H 11.6 H (1.8-7.7) K/mm3 Monocytes # (Manual) 1.4 H (0.0-0.8) K/mm3 Creatinine 0.4 L (0.7-1.2) mg/dL Lactate Dehydrogenase 389 H (91-180) units/L Assessment and Plan - Patient Problems (1) 32 weeks gestation of Current Visit: No Status: Resolved Plan to address problem: Deffer to the GOLF TECHNICIAN (2) Thrombocytopenia complicating Current Visit: Yes Status: Acute Plan to address problem: This may be part of pre eclampsia., see some lab order. If needed, ie PLT less or equal to 20,000, or symptomatic. Awaiting new lab results. so far, PLT improved a bit. SEE note above. PLT continues to improve. (3) Leukocytosis Current Visit: Yes Status: Acute Qualifiers: Leukocytosis type: other Qualified Code(s): D72.828 - Other elevated white blood cell count Plan to address problem: This is due to steroids.
[2016-11-25] MEDS: AMBIEN PO PRN (22:39)
[2016-11-26] MEDS: NORMODYNE PO SCH ×2 (10:16→21:54)
[2016-11-26] MEDS: PRENATAL VITAMIN PO SCH (10:17)
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
--- NOTE | 2016-11-26 12:38 | Progress Note ---
Assessment and Plan - Patient Problems (1) 33 weeks gestation of Current Visit: Yes Status: Acute Plan to address problem: 1. EFW, CRISTINA and presentation tomorrow w/ BPP 2. Will hold BP's b/w 10p-6a to allow her to rest at night. (2) Pre-eclampsia superimposed on chronic hypertension, antepartum Current Visit: Yes Status: Acute Plan to address problem: Preeclampsia explained again. Indications for delivery discussed extensively. Questions answered. A[employer]G's patient FAQ's handout for Preeclampsia and High blood pressure during was given her. 1. 33 +1weeks 2. Chronic HTN with super-imposed pre-eclampsia (with severe features based on BP) BP's stable on Labetalol 3. Thrombocytopenia, suspected gestational. Improved with Solumedrol 4. Anemia, severe stable 5. Sterilization consents in chart Recommendations 1. No change in BP meds 2. Labs q 2-3 days, normal yesterday 3. BPP twice weekly. 07/24 yesterday 4. Iron and vitamins 5. Indications for delivery: inability to control BP, HELLP, pulmonary edema, 34 weeks (3) Thrombocytopenia affecting , antepartum Current Visit: Yes Status: Acute Plan to address problem: Thrombocytopenia, suspected gestational. Improved with Solumedrol (4) Leukocytosis Current Visit: Yes Status: Acute Qualifiers: Leukocytosis type: other Qualified Code(s): D72.828 - Other elevated white blood cell count Plan to address problem: probabaly d/t steroids (5) Smoker Current Visit: No Status: Acute Plan to address problem: Encouraged to stop smoking Subjective - Subjective Date of service: 11/26/16 Principal diagnosis: IUP 33w1d, CHTN w/superimposed preeclampsia, thrombocytopenia Interval history: complains noted. No KONG, visual changes or RUQ pain. Patient reports: movement normal, other (denies KONG, visual changes or epigastric pain), no new complaints, no loss of fluid, no vaginal bleeding, no contractions Objective - Vital Signs Vital Signs: Vital Signs - 12hr 11/26/16 11/26/16 11/26/16 08:05 08:06 09:35 Temperature 97.6 F Pulse Rate 87 84 Pulse Rate [ Right From Monitor] Respiratory 20 Rate Blood Pressure 143/74 150/71 Blood Pressure [Right Arm] O2 Sat by Pulse Oximetry 11/26/16 11/26/16 11/26/16 10:16 10:20 10:21 Temperature 97.9 F Pulse Rate 84 83 78 Pulse Rate [ 82 Right From Monitor] Respiratory 20 Rate Blood Pressure 150/71 168/92 154/90 Blood Pressure 154/90 [Right Arm] O2 Sat by Pulse 100 Oximetry - Exam Breasts: deferred Cardiovascular: Regular rate Lungs: Clear to auscultation, Normal air movement Abdomen: Present: normal appearance, soft. Absent: distention, tenderness, guarding Uterus: Present: normal. Absent: tenderness FHR: category 1 Uterine Contraction Monitor Mode: External Extremities: normal Deep Tendon Reflex Grade: Normal +2 - Labs Labs: Abnormal Labs 11/18/16 11/18/16 11/19/16 05:15 05:15 08:22 WBC RBC 2.82 L 2.67 L Hgb 9.7 L 9.0 L Hct 28.4 L 27.2 L MCV 101 H 102 H MCH 34 H 34 H RDW 16.4 H 17.0 H Plt Count 86 L 80 L Seg Neuts % (Manual) Lymphocytes % (Manual) Monocytes % (Manual) Nucleated RBC % Seg Neutrophils # Man Monocytes # (Manual) Factor VIII:C Activity BUN Creatinine 0.3 L ALT Lactate Dehydrogenase 315 H Total Protein Albumin Urine Creatinine Ur Total Protein 24 Hr Urine Total Protein 11/19/16 11/20/16 11/20/16 Unknown 06:00 06:00 WBC RBC 2.59 L Hgb 8.9 L Hct 26.4 L MCV 102 H MCH 35 H RDW 16.9 H Plt Count 74 L Seg Neuts % (Manual) Lymphocytes % (Manual) Monocytes % (Manual) Nucleated RBC % Seg Neutrophils # Man Monocytes # (Manual) Factor VIII:C Activity BUN 6 L Creatinine 0.3 L ALT 5 L Lactate Dehydrogenase Total Protein 6.1 L Albumin 3.1 L Urine Creatinine 57.5 H Ur Total Protein 24 Hr 1792.00 H Urine Total Protein 64 H 11/21/16 11/21/16 11/21/16 06:49 19:40 19:40 WBC RBC Hgb Hct MCV MCH RDW Plt Count 83 L Seg Neuts % (Manual) Lymphocytes % (Manual) Monocytes % (Manual) Nucleated RBC % Seg Neutrophils # Man Monocytes # (Manual) Factor VIII:C Activity BUN Creatinine ALT 6 L Lactate Dehydrogenase 361 H Total Protein 6.2 L Albumin 3.2 L Urine Creatinine Ur Total Protein 24 Hr Urine Total Protein 11/21/16 11/21/16 11/22/16 19:40 19:40 20:05 WBC 12.0 H RBC 2.48 L 2.53 L Hgb 8.6 L 8.8 L Hct 25.4 L 26.3 L MCV 102 H 104 H MCH 35 H 35 H RDW 17.6 H 17.6 H Plt Count 87 L 91 L Seg Neuts % (Manual) Lymphocytes % (Manual) Monocytes % (Manual) 8.0 H Nucleated RBC % 6.0 H 3.0 H Seg Neutrophils # Man 8.0 H Monocytes # (Manual) 1.0 H Factor VIII:C Activity 223 H BUN Creatinine ALT Lactate Dehydrogenase Total Protein Albumin Urine Creatinine Ur Total Protein 24 Hr Urine Total Protein 11/23/16 11/24/16 11/25/16 18:40 19:06 08:51 WBC 14.6 H RBC 2.54 L 2.48 L Hgb 8.5 L 8.6 L Hct 26.2 L 26.0 L MCV 103 H 105 H MCH 33 H 35 H RDW 17.8 H 17.5 H Plt Count 92 L 102 L Seg Neuts % (Manual) 71.0 H Lymphocytes % (Manual) 11.0 L Monocytes % (Manual) Nucleated RBC % 6.0 H 6.0 H Seg Neutrophils # Man 10.4 H Monocytes # (Manual) Factor VIII:C Activity BUN Creatinine 0.4 L ALT Lactate Dehydrogenase 389 H Total Protein Albumin Urine Creatinine Ur Total Protein 24 Hr Urine Total Protein 11/25/16 08:51 WBC 15.1 H RBC 2.52 L Hgb 8.6 L Hct 26.6 L MCV 106 H MCH 34 H RDW 18.1 H Plt Count 108 L Seg Neuts % (Manual) 77.0 H Lymphocytes % (Manual) Monocytes % (Manual) 9.0 H Nucleated RBC % 4.0 H Seg Neutrophils # Man 11.6 H Monocytes # (Manual) 1.4 H Factor VIII:C Activity BUN Creatinine ALT Lactate Dehydrogenase Total Protein Albumin Urine Creatinine Ur Total Protein 24 Hr Urine Total Protein
[2016-11-26] MEDS: FEOSOL PO SCH (14:22)
--- NOTE | 2016-11-26 16:19 | Progress Note ---
Assessment and Plan Severe preeclampsia superimposed on essential hypertension Continue expectant management, twice weekly BPP Deliver by 34 weeks' Subjective - Subjective Date of service: 11/26/16 (Feeling well, fetus active) Principal diagnosis: IUP 33w1d, CHTN w/superimposed preeclampsia, thrombocytopenia Patient reports: movement normal, other (denies KONG, visual changes or epigastric pain), no new complaints, no loss of fluid, no vaginal bleeding, no contractions Objective - Vital Signs Vital Signs: Vital Signs - 12hr 11/26/16 11/26/16 11/26/16 08:05 08:06 09:35 Temperature 97.6 F Pulse Rate 87 84 Pulse Rate [ Right From Monitor] Respiratory 20 Rate Blood Pressure 143/74 150/71 Blood Pressure [Right Arm] O2 Sat by Pulse Oximetry 11/26/16 11/26/16 11/26/16 10:16 10:20 10:21 Temperature 97.9 F Pulse Rate 84 83 78 Pulse Rate [ 82 Right From Monitor] Respiratory 20 Rate Blood Pressure 150/71 168/92 154/90 Blood Pressure 154/90 [Right Arm] O2 Sat by Pulse 100 Oximetry 11/26/16 14:36 Temperature Pulse Rate 86 Pulse Rate [ Right From Monitor] Respiratory Rate Blood Pressure 125/68 Blood Pressure [Right Arm] O2 Sat by Pulse Oximetry - Exam Narrative Exam: Abd soft, nontender; FHT's not currently monitored; reactive NST earlier today - Labs Labs: Abnormal Labs 11/18/16 11/18/16 11/19/16 05:15 05:15 08:22 WBC RBC 2.82 L 2.67 L Hgb 9.7 L 9.0 L Hct 28.4 L 27.2 L MCV 101 H 102 H MCH 34 H 34 H RDW 16.4 H 17.0 H Plt Count 86 L 80 L Seg Neuts % (Manual) Lymphocytes % (Manual) Monocytes % (Manual) Nucleated RBC % Seg Neutrophils # Man Monocytes # (Manual) Factor VIII:C Activity BUN Creatinine 0.3 L ALT Lactate Dehydrogenase 315 H Total Protein Albumin Urine Creatinine Ur Total Protein 24 Hr Urine Total Protein 11/19/16 11/20/16 11/20/16 Unknown 06:00 06:00 WBC RBC 2.59 L Hgb 8.9 L Hct 26.4 L MCV 102 H MCH 35 H RDW 16.9 H Plt Count 74 L Seg Neuts % (Manual) Lymphocytes % (Manual) Monocytes % (Manual) Nucleated RBC % Seg Neutrophils # Man Monocytes # (Manual) Factor VIII:C Activity BUN 6 L Creatinine 0.3 L ALT 5 L Lactate Dehydrogenase Total Protein 6.1 L Albumin 3.1 L Urine Creatinine 57.5 H Ur Total Protein 24 Hr 1792.00 H Urine Total Protein 64 H 11/21/16 11/21/16 11/21/16 06:49 19:40 19:40 WBC RBC Hgb Hct MCV MCH RDW Plt Count 83 L Seg Neuts % (Manual) Lymphocytes % (Manual) Monocytes % (Manual) Nucleated RBC % Seg Neutrophils # Man Monocytes # (Manual) Factor VIII:C Activity BUN Creatinine ALT 6 L Lactate Dehydrogenase 361 H Total Protein 6.2 L Albumin 3.2 L Urine Creatinine Ur Total Protein 24 Hr Urine Total Protein 11/21/16 11/21/16 11/22/16 19:40 19:40 20:05 WBC 12.0 H RBC 2.48 L 2.53 L Hgb 8.6 L 8.8 L Hct 25.4 L 26.3 L MCV 102 H 104 H MCH 35 H 35 H RDW 17.6 H 17.6 H Plt Count 87 L 91 L Seg Neuts % (Manual) Lymphocytes % (Manual) Monocytes % (Manual) 8.0 H Nucleated RBC % 6.0 H 3.0 H Seg Neutrophils # Man 8.0 H Monocytes # (Manual) 1.0 H Factor VIII:C Activity 223 H BUN Creatinine ALT Lactate Dehydrogenase Total Protein Albumin Urine Creatinine Ur Total Protein 24 Hr Urine Total Protein 11/23/16 11/24/16 11/25/16 18:40 19:06 08:51 WBC 14.6 H RBC 2.54 L 2.48 L Hgb 8.5 L 8.6 L Hct 26.2 L 26.0 L MCV 103 H 105 H MCH 33 H 35 H RDW 17.8 H 17.5 H Plt Count 92 L 102 L Seg Neuts % (Manual) 71.0 H Lymphocytes % (Manual) 11.0 L Monocytes % (Manual) Nucleated RBC % 6.0 H 6.0 H Seg Neutrophils # Man 10.4 H Monocytes # (Manual) Factor VIII:C Activity BUN Creatinine 0.4 L ALT Lactate Dehydrogenase 389 H Total Protein Albumin Urine Creatinine Ur Total Protein 24 Hr Urine Total Protein 11/25/16 08:51 WBC 15.1 H RBC 2.52 L Hgb 8.6 L Hct 26.6 L MCV 106 H MCH 34 H RDW 18.1 H Plt Count 108 L Seg Neuts % (Manual) 77.0 H Lymphocytes % (Manual) Monocytes % (Manual) 9.0 H Nucleated RBC % 4.0 H Seg Neutrophils # Man 11.6 H Monocytes # (Manual) 1.4 H Factor VIII:C Activity BUN Creatinine ALT Lactate Dehydrogenase Total Protein Albumin Urine Creatinine Ur Total Protein 24 Hr Urine Total Protein
--- NOTE | 2016-11-26 21:10 | Consultation ---
History of Present Illness - Reason for Consult Consult date: 11/26/16 - History of Present Illness Patient seen/examined, labs reviewed, case d/w patient/family. She is expected to be induced this coming weekend. Medications and Allergies Allergies Allergy/AdvReac Type Severity Reaction Status Date / Time No Known Allergies Allergy Verified 11/21/16 06:18 Home Medications Medication Instructions Recorded Confirmed Last Taken Type Vit-Fe Fumar-FA [ 1 tab PO QDAY 10/25/16 11/20/16 11/17/16 12: 00 History Vitamin] 1 tab Active Meds: Active Medications Acetaminophen (Tylenol) 650 mg PO Q4H PRN PRN Reason: Pain MILD(1-3)/Fever >100.5/KONG Last Admin: 11/23/16 22:00 Dose: 650 mg Al Hydrox/Mg Hydrox/Simethicone (Alum-Mag Hydrox-Simeth [phone]/5ml) 30 ml PO Q6H PRN PRN Reason: Indigestion Docusate Sodium (Colace) 100 mg PO Q12H PRN PRN Reason: Constipation Ferrous Sulfate (Feosol) 325 mg PO QDAY [facility] Last Admin: 11/26/16 14:22 Dose: 325 mg Hydrocortisone Acetate (Proctosol-Hc) 1 applic LA Q8H PRN PRN Reason: Hemorrhoids Lactated Ringer's (Lactated Ringers) 1,000 mls @ 125 mls/hr IV DIRECT [facility] Last Admin: 11/19/16 16:17 Dose: 125 mls/hr Labetalol HCl (Normodyne) 200 mg PO BID [facility] Last Admin: 11/26/16 10:16 Dose: 200 mg Magnesium Hydroxide (Milk Of Magnesia) 30 ml PO QHS PRN PRN Reason: Laxative Effect Methylprednisolone Sodium Succinate (Solu-Medrol) 40 mg IV Q8HR [facility] Last Admin: 11/26/16 14:23 Dose: 40 mg Multivitamins/Iron/Calcium ( Vitamin) 1 each PO QDAY [facility] Last Admin: 11/26/16 10:17 Dose: 1 each Ondansetron HCl (Zofran) 4 mg IV Q6H PRN PRN Reason: Nausea And Vomiting Sodium Chloride (Deep Sea) 1 spray NS PRN PRN PRN Reason: Dry Nasal Passages Last Admin: 11/24/16 11:54 Dose: 1 spray Zolpidem Tartrate (Ambien) 10 mg PO ONCE PRN PRN Reason: Sleep Last Admin: 11/25/16 22:39 Dose: 10 mg Exam - Constitutional Vitals: Temp Pulse Resp BP Pulse Ox 97.9 F 85 20 133/82 100 11/26/16 10:21 11/26/16 20:37 11/26/16 10:21 11/26/16 20:37 11/26/16 10:21 General appearance: Present: no acute distress, well-nourished - EENT Eyes: Present: PERRL ENT: hearing intact, clear oral mucosa - Neck Neck: Present: supple, normal ROM - Respiratory Respiratory effort: normal Respiratory: bilateral: CTA - Cardiovascular Heart Sounds: Present: S1 & S2. Absent: rub, click - Extremities Extremities: pulses symmetrical, No edema Peripheral Pulses: within normal limits - Abdominal General gastrointestinal: Present: soft, non-tender, non-distended, normal bowel sounds Female genitourinary: Present: deferred - Rectal Rectal Exam: deferred - Integumentary Integumentary: Present: clear, warm, dry - Musculoskeletal Musculoskeletal: gait normal, strength equal bilaterally - Psychiatric Psychiatric: appropriate mood/affect, intact judgment & insight - Neurologic Neurologic: CNII-XII intact, moves all extremities Results - Labs CBC & Chem 7: 11/25/16 08:51 11/25/16 08:51 Assessment and Plan - Patient Problems (1) Thrombocytopenia complicating Current Visit: Yes Status: Acute Plan to address problem: This may be part of pre eclampsia., see some lab order. If needed, ie PLT less or equal to 20,000, or symptomatic. Awaiting new lab results. so far, PLT improved a bit. SEE note above. PLT continues to improve. Next lab draw is tomorrow as per OB team. (2) Leukocytosis Current Visit: Yes Status: Acute Qualifiers: Leukocytosis type: other Qualified Code(s): D72.828 - Other elevated white blood cell count Plan to address problem: This is due to steroids.
[2016-11-27] MEDS: AMBIEN PO PRN ×2 (00:22→23:55)
--- NOTE | 2016-11-27 06:49 | Progress Note ---
Assessment and Plan - Patient Problems (1) 33 weeks gestation of Current Visit: Yes Status: Acute Plan to address problem: continue q shift NSTs US evaluation today with BPP (2) Pre-eclampsia superimposed on chronic hypertension, antepartum Current Visit: Yes Status: Acute Plan to address problem: Pt w/o complaint of KONG, blurred vision, chest pain; desires OOB for AM toilet and to go to garden with family member. Order is in EMR; continue close observation of BPs Consult with (3) Thrombocytopenia affecting , antepartum Current Visit: Yes Status: Acute Plan to address problem: As per recommendation by [employer] [employer]se[employer] Platelet counts drawn Solu-medrol administered. Plt ct on 11-25-16 108. Subjective - Subjective Date of service: 11/27/16 (Pt in good spirits; no c/o voiced) Principal diagnosis: IUP 33w2d, CHTN w/superimposed preeclampsia, thrombocytopenia Patient reports: movement normal, other (denies KONG, visual changes or epigastric pain), no new complaints, no loss of fluid, no vaginal bleeding, no contractions Objective - Vital Signs Vital Signs: Vital Signs - 12hr 11/26/16 11/26/16 11/26/16 20:37 21:52 21:54 Temperature 98.8 F Pulse Rate 85 93 H 93 H Pulse Rate [ 85 93 H Right From Monitor] Respiratory 18 18 Rate Blood Pressure 133/82 136/78 136/78 Blood Pressure 133/82 136/78 [Right Arm] 11/27/16 11/27/16 00:25 06:21 Temperature 97.7 F Pulse Rate 86 78 Pulse Rate [ 78 Right From Monitor] Respiratory 18 Rate Blood Pressure 154/84 133/67 Blood Pressure 133/67 [Right Arm] - Exam Breasts: deferred Cardiovascular: Regular rate Lungs: Normal air movement Abdomen: Present: normal appearance, soft. Absent: distention, tenderness Vulva: both: normal Uterus: Present: normal FHR: auscultation normal, category 1 (as reported from NST done previous time in shift) Uterine Contraction Monitor Mode: External Uterine Contraction Pattern: Absent Uterine Tone Measurement Phase: Resting Extremities: normal Deep Tendon Reflex Grade: Normal +2 - Labs Labs: Abnormal Labs 11/18/16 11/18/16 11/19/16 05:15 05:15 08:22 WBC RBC 2.82 L 2.67 L Hgb 9.7 L 9.0 L Hct 28.4 L 27.2 L MCV 101 H 102 H MCH 34 H 34 H RDW 16.4 H 17.0 H Plt Count 86 L 80 L Seg Neuts % (Manual) Lymphocytes % (Manual) Monocytes % (Manual) Nucleated RBC % Seg Neutrophils # Man Monocytes # (Manual) Factor VIII:C Activity BUN Creatinine 0.3 L ALT Lactate Dehydrogenase 315 H Total Protein Albumin Urine Creatinine Ur Total Protein 24 Hr Urine Total Protein 11/19/16 11/20/16 11/20/16 Unknown 06:00 06:00 WBC RBC 2.59 L Hgb 8.9 L Hct 26.4 L MCV 102 H MCH 35 H RDW 16.9 H Plt Count 74 L Seg Neuts % (Manual) Lymphocytes % (Manual) Monocytes % (Manual) Nucleated RBC % Seg Neutrophils # Man Monocytes # (Manual) Factor VIII:C Activity BUN 6 L Creatinine 0.3 L ALT 5 L Lactate Dehydrogenase Total Protein 6.1 L Albumin 3.1 L Urine Creatinine 57.5 H Ur Total Protein 24 Hr 1792.00 H Urine Total Protein 64 H 11/21/16 11/21/16 11/21/16 06:49 19:40 19:40 WBC RBC Hgb Hct MCV MCH RDW Plt Count 83 L Seg Neuts % (Manual) Lymphocytes % (Manual) Monocytes % (Manual) Nucleated RBC % Seg Neutrophils # Man Monocytes # (Manual) Factor VIII:C Activity BUN Creatinine ALT 6 L Lactate Dehydrogenase 361 H Total Protein 6.2 L Albumin 3.2 L Urine Creatinine Ur Total Protein 24 Hr Urine Total Protein 11/21/16 11/21/16 11/22/16 19:40 19:40 20:05 WBC 12.0 H RBC 2.48 L 2.53 L Hgb 8.6 L 8.8 L Hct 25.4 L 26.3 L MCV 102 H 104 H MCH 35 H 35 H RDW 17.6 H 17.6 H Plt Count 87 L 91 L Seg Neuts % (Manual) Lymphocytes % (Manual) Monocytes % (Manual) 8.0 H Nucleated RBC % 6.0 H 3.0 H Seg Neutrophils # Man 8.0 H Monocytes # (Manual) 1.0 H Factor VIII:C Activity 223 H BUN Creatinine ALT Lactate Dehydrogenase Total Protein Albumin Urine Creatinine Ur Total Protein 24 Hr Urine Total Protein 11/23/16 11/24/16 11/25/16 18:40 19:06 08:51 WBC 14.6 H RBC 2.54 L 2.48 L Hgb 8.5 L 8.6 L Hct 26.2 L 26.0 L MCV 103 H 105 H MCH 33 H 35 H RDW 17.8 H 17.5 H Plt Count 92 L 102 L Seg Neuts % (Manual) 71.0 H Lymphocytes % (Manual) 11.0 L Monocytes % (Manual) Nucleated RBC % 6.0 H 6.0 H Seg Neutrophils # Man 10.4 H Monocytes # (Manual) Factor VIII:C Activity BUN Creatinine 0.4 L ALT Lactate Dehydrogenase 389 H Total Protein Albumin Urine Creatinine Ur Total Protein 24 Hr Urine Total Protein 11/25/16 08:51 WBC 15.1 H RBC 2.52 L Hgb 8.6 L Hct 26.6 L MCV 106 H MCH 34 H RDW 18.1 H Plt Count 108 L Seg Neuts % (Manual) 77.0 H Lymphocytes % (Manual) Monocytes % (Manual) 9.0 H Nucleated RBC % 4.0 H Seg Neutrophils # Man 11.6 H Monocytes # (Manual) 1.4 H Factor VIII:C Activity BUN Creatinine ALT Lactate Dehydrogenase Total Protein Albumin Urine Creatinine Ur Total Protein 24 Hr Urine Total Protein
--- NOTE | 2016-11-27 08:15 | Progress Note ---
Assessment and Plan - Patient Problems (1) AMA (advanced maternal age) multigravida 35+ Current Visit: No Status: Acute Qualifiers: Trimester: T (2) Pre-eclampsia superimposed on chronic hypertension, antepartum Current Visit: Yes Status: Acute Plan to address problem: -cont current management -bp stable on oral meds -plan is for delivery at 34 wks as per [facility] (3) 33 weeks gestation of Current Visit: Yes Status: Acute (4) Thrombocytopenia complicating Current Visit: Yes Status: Acute Plan to address problem: -pt is responding to steroids count increasing. CBC due this pm -cont current management Subjective - Subjective Principal diagnosis: IUP 33w2d, CHTN w/superimposed preeclampsia, thrombocytopenia Interval history: Pt denies any headaches or blurry vision at this time. Pt seems to be in better spirits today since I last saw her. She seems to be more open to delivery at 34 wks gestation. I spent several minutes speaking with pt making sure she does not have any questions regarding the plan of care. Pt expressed she has not questions or concerns at this time except for the weight of the baby. Complete sono for EFW has been ordered this am. Patient reports: movement normal, other (denies KONG, visual changes or epigastric pain), no new complaints, no loss of fluid, no vaginal bleeding, no contractions Objective - Vital Signs Vital Signs: Vital Signs - 12hr 11/26/16 11/26/16 11/26/16 20:37 21:52 21:54 Temperature 98.8 F Pulse Rate 85 93 H 93 H Pulse Rate [ 85 93 H Right From Monitor] Respiratory 18 18 Rate Blood Pressure 133/82 136/78 136/78 Blood Pressure 133/82 136/78 [Right Arm] 11/27/16 11/27/16 00:25 06:21 Temperature 97.7 F Pulse Rate 86 78 Pulse Rate [ 78 Right From Monitor] Respiratory 18 Rate Blood Pressure 154/84 133/67 Blood Pressure 133/67 [Right Arm] - Exam Breasts: deferred Lungs: Normal air movement Abdomen: Present: normal appearance, soft. Absent: distention, tenderness, guarding FHR: category 1 Uterine Contraction Pattern: Absent Deep Tendon Reflex Grade: Normal +2 - Labs Labs: Abnormal Labs 11/18/16 11/18/16 11/19/16 05:15 05:15 08:22 WBC RBC 2.82 L 2.67 L Hgb 9.7 L 9.0 L Hct 28.4 L 27.2 L MCV 101 H 102 H MCH 34 H 34 H RDW 16.4 H 17.0 H Plt Count 86 L 80 L Seg Neuts % (Manual) Lymphocytes % (Manual) Monocytes % (Manual) Nucleated RBC % Seg Neutrophils # Man Monocytes # (Manual) Factor VIII:C Activity BUN Creatinine 0.3 L ALT Lactate Dehydrogenase 315 H Total Protein Albumin Urine Creatinine Ur Total Protein 24 Hr Urine Total Protein 11/19/16 11/20/16 11/20/16 Unknown 06:00 06:00 WBC RBC 2.59 L Hgb 8.9 L Hct 26.4 L MCV 102 H MCH 35 H RDW 16.9 H Plt Count 74 L Seg Neuts % (Manual) Lymphocytes % (Manual) Monocytes % (Manual) Nucleated RBC % Seg Neutrophils # Man Monocytes # (Manual) Factor VIII:C Activity BUN 6 L Creatinine 0.3 L ALT 5 L Lactate Dehydrogenase Total Protein 6.1 L Albumin 3.1 L Urine Creatinine 57.5 H Ur Total Protein 24 Hr 1792.00 H Urine Total Protein 64 H 11/21/16 11/21/16 11/21/16 06:49 19:40 19:40 WBC RBC Hgb Hct MCV MCH RDW Plt Count 83 L Seg Neuts % (Manual) Lymphocytes % (Manual) Monocytes % (Manual) Nucleated RBC % Seg Neutrophils # Man Monocytes # (Manual) Factor VIII:C Activity BUN Creatinine ALT 6 L Lactate Dehydrogenase 361 H Total Protein 6.2 L Albumin 3.2 L Urine Creatinine Ur Total Protein 24 Hr Urine Total Protein 11/21/16 11/21/16 11/22/16 19:40 19:40 20:05 WBC 12.0 H RBC 2.48 L 2.53 L Hgb 8.6 L 8.8 L Hct 25.4 L 26.3 L MCV 102 H 104 H MCH 35 H 35 H RDW 17.6 H 17.6 H Plt Count 87 L 91 L Seg Neuts % (Manual) Lymphocytes % (Manual) Monocytes % (Manual) 8.0 H Nucleated RBC % 6.0 H 3.0 H Seg Neutrophils # Man 8.0 H Monocytes # (Manual) 1.0 H Factor VIII:C Activity 223 H BUN Creatinine ALT Lactate Dehydrogenase Total Protein Albumin Urine Creatinine Ur Total Protein 24 Hr Urine Total Protein 11/23/16 11/24/16 11/25/16 18:40 19:06 08:51 WBC 14.6 H RBC 2.54 L 2.48 L Hgb 8.5 L 8.6 L Hct 26.2 L 26.0 L MCV 103 H 105 H MCH 33 H 35 H RDW 17.8 H 17.5 H Plt Count 92 L 102 L Seg Neuts % (Manual) 71.0 H Lymphocytes % (Manual) 11.0 L Monocytes % (Manual) Nucleated RBC % 6.0 H 6.0 H Seg Neutrophils # Man 10.4 H Monocytes # (Manual) Factor VIII:C Activity BUN Creatinine 0.4 L ALT Lactate Dehydrogenase 389 H Total Protein Albumin Urine Creatinine Ur Total Protein 24 Hr Urine Total Protein 11/25/16 08:51 WBC 15.1 H RBC 2.52 L Hgb 8.6 L Hct 26.6 L MCV 106 H MCH 34 H RDW 18.1 H Plt Count 108 L Seg Neuts % (Manual) 77.0 H Lymphocytes % (Manual) Monocytes % (Manual) 9.0 H Nucleated RBC % 4.0 H Seg Neutrophils # Man 11.6 H Monocytes # (Manual) 1.4 H Factor VIII:C Activity BUN Creatinine ALT Lactate Dehydrogenase Total Protein Albumin Urine Creatinine Ur Total Protein 24 Hr Urine Total Protein
[2016-11-27] MEDS: PRENATAL VITAMIN PO SCH (10:26)
[2016-11-27] MEDS: FEOSOL PO SCH (10:27)
[2016-11-27] MEDS: NORMODYNE PO SCH ×2 (10:27→22:06)
--- NOTE | 2016-11-27 14:37 | Ultrasound Report ---
BIOPHYSICAL PROFILE: Technique: Transabdominal ultrasound with Doppler interrogation. 2 - breathing movements 2 - movements 2 - posture and tone 2 - Qualitative amniotic fluid volume 8 - TOTAL SCORE OF POSSIBLE 8 Heart Rate (bpm) 143
[2016-11-27 19:03] LABS: Hematocrit 25.4 % (30.3-42.9); Hemoglobin 8.2 gm/dl (10.1-14.3); Mean Corpuscular HGB Conc 32 % (30-34); Mean Corpuscular Hemoglobin 34 pg (28-32); Mean Corpuscular Volume 106 fl (79-97); Platelet Count 115 K/mm3 (140-440); Red Blood Count 2.39 M/mm3 (3.65-5.03); Red Cell Distribution Width 18.5 % (13.2-15.2)
--- NOTE | 2016-11-27 19:26 | Consultation ---
History of Present Illness - Reason for Consult Consult date: 11/27/16 - History of Present Illness patient seen/examined, labs reviewed, case d/w patient. No new issues at this time. Medications and Allergies Allergies Allergy/AdvReac Type Severity Reaction Status Date / Time No Known Allergies Allergy Verified 11/21/16 06:18 Home Medications Medication Instructions Recorded Confirmed Last Taken Type Vit-Fe Fumar-FA [ 1 tab PO QDAY 10/25/16 11/20/16 11/17/16 12: 00 History Vitamin] 1 tab Active Meds: Active Medications Acetaminophen (Tylenol) 650 mg PO Q4H PRN PRN Reason: Pain MILD(1-3)/Fever >100.5/KONG Last Admin: 11/23/16 22:00 Dose: 650 mg Al Hydrox/Mg Hydrox/Simethicone (Alum-Mag Hydrox-Simeth [phone]/5ml) 30 ml PO Q6H PRN PRN Reason: Indigestion Docusate Sodium (Colace) 100 mg PO Q12H PRN PRN Reason: Constipation Ferrous Sulfate (Feosol) 325 mg PO QDAY [facility] Last Admin: 11/27/16 10:27 Dose: 325 mg Hydrocortisone Acetate (Proctosol-Hc) 1 applic [place] Q8H PRN PRN Reason: Hemorrhoids Lactated Ringer's (Lactated Ringers) 1,000 mls @ 125 mls/hr IV DIRECT [facility] Last Admin: 11/19/16 16:17 Dose: 125 mls/hr Labetalol HCl (Normodyne) 200 mg PO BID [facility] Last Admin: 11/27/16 10:27 Dose: 200 mg Magnesium Hydroxide (Milk Of Magnesia) 30 ml PO QHS PRN PRN Reason: Laxative Effect Methylprednisolone Sodium Succinate (Solu-Medrol) 40 mg IV Q8HR [facility] Last Admin: 11/27/16 15:30 Dose: 40 mg Multivitamins/Iron/Calcium ( Vitamin) 1 each PO QDAY [facility] Last Admin: 11/27/16 10:26 Dose: 1 each Ondansetron HCl (Zofran) 4 mg IV Q6H PRN PRN Reason: Nausea And Vomiting Sodium Chloride (Deep Sea) 1 spray NS PRN PRN PRN Reason: Dry Nasal Passages Last Admin: 11/24/16 11:54 Dose: 1 spray Zolpidem Tartrate (Ambien) 10 mg PO ONCE PRN PRN Reason: Sleep Last Admin: 11/27/16 00:22 Dose: 10 mg Review of Systems Breasts: deferred Exam - Constitutional Vitals: Temp Pulse Resp BP Pulse Ox 97.8 F 86 14 120/68 100 11/27/16 10:31 11/27/16 14:08 11/27/16 10:31 11/27/16 14:08 11/27/16 10:31 General appearance: Present: no acute distress, well-nourished - EENT Eyes: Present: PERRL ENT: hearing intact, clear oral mucosa - Neck Neck: Present: supple, normal ROM - Respiratory Respiratory effort: normal Respiratory: bilateral: CTA - Cardiovascular Heart Sounds: Present: S1 & S2. Absent: rub, click - Extremities Extremities: pulses symmetrical, No edema Peripheral Pulses: within normal limits - Abdominal General gastrointestinal: Present: soft, non-tender, non-distended, normal bowel sounds Female genitourinary: Present: deferred - Integumentary Integumentary: Present: clear, warm, dry - Musculoskeletal Musculoskeletal: gait normal, strength equal bilaterally - Psychiatric Psychiatric: appropriate mood/affect, intact judgment & insight - Neurologic Neurologic: CNII-XII intact, moves all extremities Results - Labs CBC & Chem 7: 11/27/16 18:43 11/25/16 08:51 Labs: Abnormal lab results 11/27/16 Range/Units 18:43 WBC 23.0 H (4.5-11.0) K/mm3 RBC 2.39 L (3.65-5.03) M/mm3 Hgb 8.2 L (10.1-14.3) gm/dl Hct 25.4 L (30.3-42.9) % MCV 106 H (79-97) fl MCH 34 H (28-32) pg RDW 18.5 H (13.2-15.2) % Plt Count 115 L (140-440) K/mm3 Assessment and Plan - Patient Problems (1) Thrombocytopenia complicating Current Visit: Yes Status: Acute Plan to address problem: This may be part of pre eclampsia., see some lab order. If needed, ie PLT less or equal to 20,000, or symptomatic. Awaiting new lab results. so far, PLT improved a bit. SEE note above. PLT continues to improve. Next lab draw is tomorrow as per OB team. (2) Leukocytosis Current Visit: Yes Status: Acute Qualifiers: Leukocytosis type: other Qualified Code(s): D72.828 - Other elevated white blood cell count Plan to address problem: This is due to steroids.
[2016-11-27 19:52] LABS: Basophils % (Manual) 0 % (0.0-1.8); Blastocytes % (Manual) 0 %; Eosinophils % (Manual) 0 % (0.0-4.3)
[2016-11-27 19:53] LABS: White Blood Count 17.7 K/mm3 (4.5-11.0)
[2016-11-27 19:54] LABS: Anisocytosis 1+; Macrocytosis 1+
[2016-11-27 19:55] LABS: Poikilocytosis 2+; Polychromasia 1+; Schistocytes 1+
[2016-11-27 19:56] LABS: Diff Status Complete; Large Platelets Few; Platelet Estimate Consistent w Auto
--- NOTE | 2016-11-28 07:34 | Progress Note ---
Assessment and Plan IMP: 1. IUP 33w3d 2. CHTN w/superimposed preeclampsia (w/severe range BPs) 3. thrombocytopenia, suspected gestational; Hematology following 4. s/p betamethasone 10/25-10/26 REC: 1. Continue current BP meds; keep BP 120-160/80-105. 2. Twice weekly BPPs. 3. Consider repeating betamethasone at 33w5d EGA prior to delivery (may want to check with Hematology first as pt. is currently receiving methylprednisolone for thrombocytopenia). 4. Deliver at 34 weeks EGA, unless indicated sooner. Subjective - Subjective Date of service: 11/28/16 Principal diagnosis: IUP 33w3d, CHTN w/superimposed preeclampsia, thrombocytopenia Patient reports: movement normal, other (denies KONG, visual changes or epigastric pain), no new complaints Objective - Vital Signs Vital Signs: Vital Signs - 12hr 11/27/16 11/27/16 11/27/16 21:15 21:16 22:06 Temperature 98.1 F Pulse Rate 86 86 Blood Pressure 159/93 159/93 11/27/16 11/27/16 11/28/16 23:28 23:55 04:25 Temperature Pulse Rate 90 86 83 Blood Pressure 162/91 164/91 122/67 11/28/16 07:13 Temperature Pulse Rate 83 Blood Pressure 143/81 - Exam Narrative Exam: Appears well. Abdomen: Present: normal appearance, soft. Absent: tenderness Extremities: normal - Labs Labs: Abnormal Labs 11/18/16 11/18/16 11/19/16 05:15 05:15 08:22 WBC RBC 2.82 L 2.67 L Hgb 9.7 L 9.0 L Hct 28.4 L 27.2 L MCV 101 H 102 H MCH 34 H 34 H RDW 16.4 H 17.0 H Plt Count 86 L 80 L Seg Neuts % (Manual) Lymphocytes % (Manual) Monocytes % (Manual) Nucleated RBC % Seg Neutrophils # Man Monocytes # (Manual) Factor VIII:C Activity BUN Creatinine 0.3 L ALT Lactate Dehydrogenase 315 H Total Protein Albumin Urine Creatinine Ur Total Protein 24 Hr Urine Total Protein 11/19/16 11/20/16 11/20/16 Unknown 06:00 06:00 WBC RBC 2.59 L Hgb 8.9 L Hct 26.4 L MCV 102 H MCH 35 H RDW 16.9 H Plt Count 74 L Seg Neuts % (Manual) Lymphocytes % (Manual) Monocytes % (Manual) Nucleated RBC % Seg Neutrophils # Man Monocytes # (Manual) Factor VIII:C Activity BUN 6 L Creatinine 0.3 L ALT 5 L Lactate Dehydrogenase Total Protein 6.1 L Albumin 3.1 L Urine Creatinine 57.5 H Ur Total Protein 24 Hr 1792.00 H Urine Total Protein 64 H 11/21/16 11/21/16 11/21/16 06:49 19:40 19:40 WBC RBC Hgb Hct MCV MCH RDW Plt Count 83 L Seg Neuts % (Manual) Lymphocytes % (Manual) Monocytes % (Manual) Nucleated RBC % Seg Neutrophils # Man Monocytes # (Manual) Factor VIII:C Activity BUN Creatinine ALT 6 L Lactate Dehydrogenase 361 H Total Protein 6.2 L Albumin 3.2 L Urine Creatinine Ur Total Protein 24 Hr Urine Total Protein 11/21/16 11/21/16 11/22/16 19:40 19:40 20:05 WBC 12.0 H RBC 2.48 L 2.53 L Hgb 8.6 L 8.8 L Hct 25.4 L 26.3 L MCV 102 H 104 H MCH 35 H 35 H RDW 17.6 H 17.6 H Plt Count 87 L 91 L Seg Neuts % (Manual) Lymphocytes % (Manual) Monocytes % (Manual) 8.0 H Nucleated RBC % 6.0 H 3.0 H Seg Neutrophils # Man 8.0 H Monocytes # (Manual) 1.0 H Factor VIII:C Activity 223 H BUN Creatinine ALT Lactate Dehydrogenase Total Protein Albumin Urine Creatinine Ur Total Protein 24 Hr Urine Total Protein 11/23/16 11/24/16 11/25/16 18:40 19:06 08:51 WBC 14.6 H RBC 2.54 L 2.48 L Hgb 8.5 L 8.6 L Hct 26.2 L 26.0 L MCV 103 H 105 H MCH 33 H 35 H RDW 17.8 H 17.5 H Plt Count 92 L 102 L Seg Neuts % (Manual) 71.0 H Lymphocytes % (Manual) 11.0 L Monocytes % (Manual) Nucleated RBC % 6.0 H 6.0 H Seg Neutrophils # Man 10.4 H Monocytes # (Manual) Factor VIII:C Activity BUN Creatinine 0.4 L ALT Lactate Dehydrogenase 389 H Total Protein Albumin Urine Creatinine Ur Total Protein 24 Hr Urine Total Protein 11/25/16 11/27/16 08:51 18:43 WBC 15.1 H 17.7 H RBC 2.52 L 2.39 L Hgb 8.6 L 8.2 L Hct 26.6 L 25.4 L MCV 106 H 106 H MCH 34 H 34 H RDW 18.1 H 18.5 H Plt Count 108 L 115 L Seg Neuts % (Manual) 77.0 H Lymphocytes % (Manual) Monocytes % (Manual) 9.0 H Nucleated RBC % 4.0 H 30.0 H Seg Neutrophils # Man 11.6 H 13.6 H Monocytes # (Manual) 1.4 H Factor VIII:C Activity BUN Creatinine ALT Lactate Dehydrogenase Total Protein Albumin Urine Creatinine Ur Total Protein 24 Hr Urine Total Protein Laboratory Results - last 24 hr 11/27/16 18:43 WBC 17.7 H RBC 2.39 L Hgb 8.2 L Hct 25.4 L MCV 106 H MCH 34 H MCHC 32 RDW 18.5 H Plt Count 115 L Add Manual Diff Complete Total Counted 100 Seg Neuts % (Manual) 59.0 Band Neutrophils % 11.0 Lymphocytes % (Manual) 17.0 Reactive Lymphs % (Man) 0 Monocytes % (Manual) 3.0 Eosinophils % (Manual) 0 Basophils % (Manual) 0 Metamyelocytes % 7.0 Myelocytes % 3.0 Promyelocytes % 0 Blast Cells % 0 Nucleated RBC % 30.0 H Seg Neutrophils # Man 13.6 H Band Neutrophils # 2.5 Lymphocytes # (Manual) 3.9 Abs React Lymphs (Man) 0.0 Monocytes # (Manual) 0.7 Eosinophils # (Manual) 0.0 Basophils # (Manual) 0.0 Metamyelocytes # 1.6 Myelocytes # 0.7 Promyelocytes # 0.0 Blast Cells # 0.0 WBC Morphology Not Reportable Hypersegmented Neuts Not Reportable Hyposegmented Neuts Not Reportable Hypogranular Neuts Not Reportable Smudge Cells Not Reportable Toxic Granulation Not Reportable Toxic Vacuolation Not Reportable Dohle Bodies Not Reportable Pelger-Huet Anomaly Not Reportable Allan Rods Not Reportable Platelet Estimate Consistent w auto Clumped Platelets Not Reportable Plt Clumps, EDTA Not Reportable Large Platelets Few Giant Platelets Not Reportable Platelet Satelliting Not Reportable Plt Morphology Comment Not Reportable RBC Morphology Not Reportable Dimorphic RBCs Not Reportable Polychromasia 1+ Hypochromasia Not Reportable Poikilocytosis 2+ Anisocytosis 1+ Microcytosis Not Reportable Macrocytosis 1+ Spherocytes Not Reportable Pappenheimer Bodies Not Reportable Sickle Cells Not Reportable Target Cells Not Reportable Tear Drop Cells Not Reportable Ovalocytes Not Reportable Helmet Cells Not Reportable Ho-[place] Bodies Not Reportable [place] Rings Not Reportable Fabiola Cells Not Reportable Bite Cells Not Reportable Crenated Cell Not Reportable Elliptocytes Not Reportable Acanthocytes (Spur) Not Reportable Rouleaux Not Reportable Hemoglobin C Crystals Not Reportable Schistocytes 1+ Malaria parasites Not Reportable Yannick Bodies Not Reportable Hem Pathologist Commnt No - Results US- obstetric: report reviewed
--- NOTE | 2016-11-28 07:43 | Progress Note ---
Assessment and Plan Patient resting well, no complaints at this time. denies KONG, visual changes, epigastric pain, CTX and reports active FM. Continue with current plan of care, Need to consult with Hematology about repeating BMZ for lung maturity @ 33+5 (, 11/30/16) per [facility] recommendations. consult with Dr. Cronin. - Patient Problems (1) Hypertension affecting in third trimester Current Visit: No Status: Acute (2) Pre-eclampsia superimposed on chronic hypertension, antepartum Current Visit: Yes Status: Acute Plan to address problem: Continue with labetalol 200mg PO BID no s/s worsening pre-e continue to monitor b/p and labs pre-e labs to be drawn again today (q2-3 days per [facility]) (3) Thrombocytopenia affecting , antepartum Current Visit: Yes Status: Acute Plan to address problem: As per recommendation by apparatus repair mechanic Platelet counts drawn Solu-medrol administered. Plt ct on 11-27-16 115. (4) 33 weeks gestation of Current Visit: Yes Status: Acute Plan to address problem: Q Shift NST BPP yesterday 07/24 EFW 1967 (18th%) CRISTINA 15.4 Vertex Daily walk to garden with family if b/p stable Subjective - Subjective Date of service: 11/28/16 (Pipeline Maintenance Supervisor note) Principal diagnosis: IUP 33w3d, CHTN w/superimposed preeclampsia, thrombocytopenia Patient reports: movement normal, other (denies KONG, visual changes or epigastric pain), no new complaints, no loss of fluid, no vaginal bleeding, no contractions Objective - Vital Signs Vital Signs: Vital Signs - 12hr 11/27/16 11/27/16 11/27/16 21:15 21:16 22:06 Temperature 98.1 F Pulse Rate 86 86 Blood Pressure 159/93 159/93 11/27/16 11/27/16 11/28/16 23:28 23:55 04:25 Temperature Pulse Rate 90 86 83 Blood Pressure 162/91 164/91 122/67 11/28/16 07:13 Temperature Pulse Rate 83 Blood Pressure 143/81 - Exam Breasts: normal Cardiovascular: Regular rate Lungs: Clear to auscultation, Normal air movement Abdomen: Present: normal appearance, soft Uterus: Present: normal FHR: category 1 (last night @ 2200) Uterine Contraction Monitor Mode: External Uterine Contraction Frequency (min): none Uterine Contraction Pattern: Absent Uterine Tone Measurement Phase: Resting Extremities: normal Deep Tendon Reflex Grade: Normal +2 - Labs Labs: Abnormal Labs 11/18/16 11/18/16 11/19/16 05:15 05:15 08:22 WBC RBC 2.82 L 2.67 L Hgb 9.7 L 9.0 L Hct 28.4 L 27.2 L MCV 101 H 102 H MCH 34 H 34 H RDW 16.4 H 17.0 H Plt Count 86 L 80 L Seg Neuts % (Manual) Lymphocytes % (Manual) Monocytes % (Manual) Nucleated RBC % Seg Neutrophils # Man Monocytes # (Manual) Factor VIII:C Activity BUN Creatinine 0.3 L ALT Lactate Dehydrogenase 315 H Total Protein Albumin Urine Creatinine Ur Total Protein 24 Hr Urine Total Protein 11/19/16 11/20/16 11/20/16 Unknown 06:00 06:00 WBC RBC 2.59 L Hgb 8.9 L Hct 26.4 L MCV 102 H MCH 35 H RDW 16.9 H Plt Count 74 L Seg Neuts % (Manual) Lymphocytes % (Manual) Monocytes % (Manual) Nucleated RBC % Seg Neutrophils # Man Monocytes # (Manual) Factor VIII:C Activity BUN 6 L Creatinine 0.3 L ALT 5 L Lactate Dehydrogenase Total Protein 6.1 L Albumin 3.1 L Urine Creatinine 57.5 H Ur Total Protein 24 Hr 1792.00 H Urine Total Protein 64 H 11/21/16 11/21/16 11/21/16 06:49 19:40 19:40 WBC RBC Hgb Hct MCV MCH RDW Plt Count 83 L Seg Neuts % (Manual) Lymphocytes % (Manual) Monocytes % (Manual) Nucleated RBC % Seg Neutrophils # Man Monocytes # (Manual) Factor VIII:C Activity BUN Creatinine ALT 6 L Lactate Dehydrogenase 361 H Total Protein 6.2 L Albumin 3.2 L Urine Creatinine Ur Total Protein 24 Hr Urine Total Protein 11/21/16 11/21/16 11/22/16 19:40 19:40 20:05 WBC 12.0 H RBC 2.48 L 2.53 L Hgb 8.6 L 8.8 L Hct 25.4 L 26.3 L MCV 102 H 104 H MCH 35 H 35 H RDW 17.6 H 17.6 H Plt Count 87 L 91 L Seg Neuts % (Manual) Lymphocytes % (Manual) Monocytes % (Manual) 8.0 H Nucleated RBC % 6.0 H 3.0 H Seg Neutrophils # Man 8.0 H Monocytes # (Manual) 1.0 H Factor VIII:C Activity 223 H BUN Creatinine ALT Lactate Dehydrogenase Total Protein Albumin Urine Creatinine Ur Total Protein 24 Hr Urine Total Protein 11/23/16 11/24/16 11/25/16 18:40 19:06 08:51 WBC 14.6 H RBC 2.54 L 2.48 L Hgb 8.5 L 8.6 L Hct 26.2 L 26.0 L MCV 103 H 105 H MCH 33 H 35 H RDW 17.8 H 17.5 H Plt Count 92 L 102 L Seg Neuts % (Manual) 71.0 H Lymphocytes % (Manual) 11.0 L Monocytes % (Manual) Nucleated RBC % 6.0 H 6.0 H Seg Neutrophils # Man 10.4 H Monocytes # (Manual) Factor VIII:C Activity BUN Creatinine 0.4 L ALT Lactate Dehydrogenase 389 H Total Protein Albumin Urine Creatinine Ur Total Protein 24 Hr Urine Total Protein 11/25/16 11/27/16 08:51 18:43 WBC 15.1 H 17.7 H RBC 2.52 L 2.39 L Hgb 8.6 L 8.2 L Hct 26.6 L 25.4 L MCV 106 H 106 H MCH 34 H 34 H RDW 18.1 H 18.5 H Plt Count 108 L 115 L Seg Neuts % (Manual) 77.0 H Lymphocytes % (Manual) Monocytes % (Manual) 9.0 H Nucleated RBC % 4.0 H 30.0 H Seg Neutrophils # Man 11.6 H 13.6 H Monocytes # (Manual) 1.4 H Factor VIII:C Activity BUN Creatinine ALT Lactate Dehydrogenase Total Protein Albumin Urine Creatinine Ur Total Protein 24 Hr Urine Total Protein Laboratory Results - last 24 hr 11/27/16 18:43 WBC 17.7 H RBC 2.39 L Hgb 8.2 L Hct 25.4 L MCV 106 H MCH 34 H MCHC 32 RDW 18.5 H Plt Count 115 L Add Manual Diff Complete Total Counted 100 Seg Neuts % (Manual) 59.0 Band Neutrophils % 11.0 Lymphocytes % (Manual) 17.0 Reactive Lymphs % (Man) 0 Monocytes % (Manual) 3.0 Eosinophils % (Manual) 0 Basophils % (Manual) 0 Metamyelocytes % 7.0 Myelocytes % 3.0 Promyelocytes % 0 Blast Cells % 0 Nucleated RBC % 30.0 H Seg Neutrophils # Man 13.6 H Band Neutrophils # 2.5 Lymphocytes # (Manual) 3.9 Abs React Lymphs (Man) 0.0 Monocytes # (Manual) 0.7 Eosinophils # (Manual) 0.0 Basophils # (Manual) 0.0 Metamyelocytes # 1.6 Myelocytes # 0.7 Promyelocytes # 0.0 Blast Cells # 0.0 WBC Morphology Not Reportable Hypersegmented Neuts Not Reportable Hyposegmented Neuts Not Reportable Hypogranular Neuts Not Reportable Smudge Cells Not Reportable Toxic Granulation Not Reportable Toxic Vacuolation Not Reportable Dohle Bodies Not Reportable Pelger-Huet Anomaly Not Reportable Allan Rods Not Reportable Platelet Estimate Consistent w auto Clumped Platelets Not Reportable Plt Clumps, EDTA Not Reportable Large Platelets Few Giant Platelets Not Reportable Platelet Satelliting Not Reportable Plt Morphology Comment Not Reportable RBC Morphology Not Reportable Dimorphic RBCs Not Reportable Polychromasia 1+ Hypochromasia Not Reportable Poikilocytosis 2+ Anisocytosis 1+ Microcytosis Not Reportable Macrocytosis 1+ Spherocytes Not Reportable Pappenheimer Bodies Not Reportable Sickle Cells Not Reportable Target Cells Not Reportable Tear Drop Cells Not Reportable Ovalocytes Not Reportable Helmet Cells Not Reportable Ho-[place] Bodies Not Reportable [place] Rings Not Reportable Fabiola Cells Not Reportable Bite Cells Not Reportable Crenated Cell Not Reportable Elliptocytes Not Reportable Acanthocytes (Spur) Not Reportable Rouleaux Not Reportable Hemoglobin C Crystals Not Reportable Schistocytes 1+ Malaria parasites Not Reportable Yannick Bodies Not Reportable Hem Pathologist Commnt No
[2016-11-28 08:37] LABS: Hematocrit 25.2 % (30.3-42.9); Hemoglobin 8.3 gm/dl (10.1-14.3); Mean Corpuscular HGB Conc 33 % (30-34); Mean Corpuscular Hemoglobin 35 pg (28-32); Mean Corpuscular Volume 105 fl (79-97); Platelet Count 115 K/mm3 (140-440); Red Blood Count 2.39 M/mm3 (3.65-5.03); Red Cell Distribution Width 18.8 % (13.2-15.2)
[2016-11-28 08:39] LABS: White Blood Count 24.6 K/mm3 (4.5-11.0)
[2016-11-28 09:00] LABS: Alanine Aminotransferase 10 units/L (7-56)
--- NOTE | 2016-11-28 09:42 | Ultrasound Report ---
OB ULTRASOUND: TECHNIQUE: Transabdominal ultrasound with Doppler interrogation. Gestation: gusman Position: cephalic Amniotic Fluid: WNL (7-24 cm) CRISTINA = 15.4 cm Placenta: anterior Placental Grade: II Heart Rate: 143 BPM BPD: 7.9 cm = 31 w 4 d HC: 30.4 cm = 33 w 5 d AC: 28.3 cm = 32 w 2 d FL: 6.3 cm = 32 w 3 d HC/AC Ratio: 1.07 Cephalic Index: 74.7 Estimated Weight: 1967 grams Clinical age = 33 w 2 d EDC: 01-13-17 US Gest. Age = 32 w 4 d EDC: 01-18-17
[2016-11-28] MEDS: PRENATAL VITAMIN PO SCH (11:49)
[2016-11-28] MEDS: FEOSOL PO SCH (11:49)
[2016-11-28] MEDS: NORMODYNE PO SCH ×2 (11:49→21:51)
[2016-11-28 13:47] LABS: Lactate Dehydrogenase 503 units/L (91-180); Uric Acid 6.1 mg/dL (3.5-7.6)
[2016-11-28 14:43] LABS: Bacteria,Urine 2+ /HPF (Negative); Bilirubin,Urine NEG (Negative); Blood,Urine MOD (Negative); Ketones,Urine NEG (Negative); Leukocyte Esterase,Urine NEG (Negative); Nitrite,Urine NEG (Negative); Urobilinogen,Urine < 2.0 mg/dL (<2.0)
--- NOTE | 2016-11-28 18:23 | Event Note ---
Date: 11/28/[address] Baez he believe there is no contraindication in giving BMZ as recommended by Dr Perdomo.
--- NOTE | 2016-11-28 22:31 | Consultation ---
History of Present Illness - Reason for Consult Consult date: 11/28/16 - History of Present Illness Patient seen/examined, labs reviewed, case d/w patient, and spouse. I have also d/w Dr Cronin earlier, regarding steroid, and induction. Medications and Allergies Allergies Allergy/AdvReac Type Severity Reaction Status Date / Time No Known Allergies Allergy Verified 11/21/16 06:18 Home Medications Medication Instructions Recorded Confirmed Last Taken Type Vit-Fe Fumar-FA [ 1 tab PO QDAY 10/25/16 11/20/16 11/17/16 12: 00 History Vitamin] 1 tab Active Meds: Active Medications Acetaminophen (Tylenol) 650 mg PO Q4H PRN PRN Reason: Pain MILD(1-3)/Fever >100.5/KONG Last Admin: 11/23/16 22:00 Dose: 650 mg Al Hydrox/Mg Hydrox/Simethicone (Alum-Mag Hydrox-Simeth [phone]/5ml) 30 ml PO Q6H PRN PRN Reason: Indigestion Docusate Sodium (Colace) 100 mg PO Q12H PRN PRN Reason: Constipation Ferrous Sulfate (Feosol) 325 mg PO QDAY [facility] Last Admin: 11/28/16 11:49 Dose: 325 mg Hydrocortisone Acetate (Proctosol-Hc) 1 applic [place] Q8H PRN PRN Reason: Hemorrhoids Lactated Ringer's (Lactated Ringers) 1,000 mls @ 125 mls/hr IV DIRECT [facility] Last Admin: 11/19/16 16:17 Dose: 125 mls/hr Labetalol HCl (Normodyne) 200 mg PO BID [facility] Last Admin: 11/28/16 21:51 Dose: 200 mg Magnesium Hydroxide (Milk Of Magnesia) 30 ml PO QHS PRN PRN Reason: Laxative Effect Methylprednisolone Sodium Succinate (Solu-Medrol) 40 mg IV Q8H [facility] Last Admin: 11/28/16 20:13 Dose: 40 mg Multivitamins/Iron/Calcium ( Vitamin) 1 each PO QDAY [facility] Last Admin: 11/28/16 11:49 Dose: 1 each Ondansetron HCl (Zofran) 4 mg IV Q6H PRN PRN Reason: Nausea And Vomiting Sodium Chloride (Deep Sea) 1 spray NS PRN PRN PRN Reason: Dry Nasal Passages Last Admin: 11/24/16 11:54 Dose: 1 spray Zolpidem Tartrate (Ambien) 10 mg PO ONCE PRN PRN Reason: Sleep Last Admin: 11/27/16 23:55 Dose: 10 mg Exam - Constitutional Vitals: Temp Pulse Resp BP Pulse Ox 97.9 F 94 H 18 149/81 100 11/28/16 20:10 11/28/16 21:55 11/28/16 20:10 11/28/16 21:55 11/28/16 20:18 General appearance: Present: no acute distress, well-nourished - EENT Eyes: Present: PERRL ENT: hearing intact, clear oral mucosa - Neck Neck: Present: supple, normal ROM - Respiratory Respiratory effort: normal Respiratory: bilateral: CTA - Cardiovascular Heart Sounds: Present: S1 & S2. Absent: rub, click - Extremities Extremities: pulses symmetrical, No edema Peripheral Pulses: within normal limits - Abdominal General gastrointestinal: Present: soft, non-tender, non-distended, normal bowel sounds Female genitourinary: Present: deferred - Rectal Rectal Exam: deferred - Integumentary Integumentary: Present: clear, warm, dry - Musculoskeletal Musculoskeletal: gait normal, strength equal bilaterally - Psychiatric Psychiatric: appropriate mood/affect, intact judgment & insight - Neurologic Neurologic: CNII-XII intact, moves all extremities Results - Labs CBC & Chem 7: 11/28/16 08:13 11/28/16 08:13 Labs: Abnormal lab results 11/28/16 11/28/16 Range/Units 08:13 08:13 WBC 24.6 H (4.5-11.0) K/mm3 RBC 2.39 L (3.65-5.03) M/mm3 Hgb 8.3 L (10.1-14.3) gm/dl Hct 25.2 L (30.3-42.9) % MCV 105 H (79-97) fl MCH 35 H (28-32) pg RDW 18.8 H (13.2-15.2) % Plt Count 115 L (140-440) K/mm3 Creatinine 0.4 L (0.7-1.2) mg/dL Lactate Dehydrogenase 503 H (91-180) units/L Assessment and Plan - Patient Problems (1) Thrombocytopenia complicating Current Visit: Yes Status: Acute Plan to address problem: This may be part of pre eclampsia., see some lab order. If needed, ie PLT less or equal to 20,000, or symptomatic. Awaiting new lab results. so far, PLT improved a bit. SEE note above. PLT continues to improve. Next lab draw is tomorrow as per OB team follow lab draws with primary team. (2) Leukocytosis Current Visit: Yes Status: Acute Qualifiers: Leukocytosis type: other Qualified Code(s): D72.828 - Other elevated white blood cell count Plan to address problem: This is due to steroids.
[2016-11-28] MEDS: AMBIEN PO PRN (23:43)
--- NOTE | 2016-11-29 07:57 | Progress Note ---
Assessment and Plan Patient resting well, no complaints at this time. denies KONG, visual changes, epigastric pain, CTX and reports active FM. Continue with current plan of care, Hematology consulted re: repeating BMZ for lung maturity @ 33+5 ( , 11/30/16) per [facility] recommendations, okay to administer steroids. Ordered for x2. NICU consult ordered. BPP/CRISTINA ordered for tomorrow (twice weekly per [facility]'s recommendations) - Patient Problems (1) Hypertension affecting in third trimester Current Visit: No Status: Acute (2) Pre-eclampsia superimposed on chronic hypertension, antepartum Current Visit: Yes Status: Acute Plan to address problem: Continue with labetalol 200mg PO BID no s/s worsening pre-e continue to monitor b/p and labs pre-e labs drawn yesterday, NL (q2-3 days per [facility]) (3) Thrombocytopenia affecting , antepartum Current Visit: Yes Status: Acute Plan to address problem: As per recommendation by tufting supervisor Platelet counts drawn Solu-medrol administered. Plt ct on 11-28-16 115. (4) 33 weeks gestation of Current Visit: Yes Status: Acute Plan to address problem: IOL scheduled for 34weeks Repeat BMZ tomorrow - okayed by hematology NST qshift May ambulate outside to garden with family if b/p stable NICU consult Subjective - Subjective Date of service: 11/29/16 Principal diagnosis: IUP 33w4d, CHTN w/superimposed preeclampsia, thrombocytopenia Patient reports: movement normal, other (denies KONG, visual changes or epigastric pain), no new complaints, no loss of fluid, no vaginal bleeding, no contractions Objective - Vital Signs Vital Signs: Vital Signs - 12hr 11/28/16 11/28/16 11/28/16 20:10 20:11 20:13 Temperature 97.9 F Pulse Rate 88 86 Respiratory 18 Rate Blood Pressure 161/98 141/80 O2 Sat by Pulse Oximetry 11/28/16 11/28/16 11/28/16 20:18 21:52 21:55 Temperature Pulse Rate 96 H 95 H 94 H Respiratory Rate Blood Pressure 163/83 149/81 O2 Sat by Pulse 100 Oximetry 11/29/16 11/29/16 11/29/16 00:14 00:19 00:24 Temperature Pulse Rate 94 H 88 90 Respiratory Rate Blood Pressure O2 Sat by Pulse 100 99 99 Oximetry 11/29/16 11/29/16 11/29/16 00:29 01:04 01:09 Temperature Pulse Rate 91 H 96 H 88 Respiratory Rate Blood Pressure O2 Sat by Pulse 100 0 L 0 L Oximetry 11/29/16 11/29/16 11/29/16 01:11 01:16 01:21 Temperature Pulse Rate 84 89 89 Respiratory Rate Blood Pressure O2 Sat by Pulse 100 100 100 Oximetry 11/29/16 11/29/16 11/29/16 01:24 01:29 01:30 Temperature Pulse Rate 85 91 H 91 H Respiratory Rate Blood Pressure O2 Sat by Pulse 0 L 0 L 0 L Oximetry 11/29/16 11/29/16 11/29/16 01:35 01:40 01:45 Temperature Pulse Rate 87 88 87 Respiratory Rate Blood Pressure O2 Sat by Pulse 100 100 100 Oximetry 11/29/16 11/29/16 11/29/16 01:50 01:55 02:00 Temperature Pulse Rate 85 88 87 Respiratory Rate Blood Pressure O2 Sat by Pulse 100 100 100 Oximetry 11/29/16 11/29/16 11/29/16 02:05 02:10 02:15 Temperature Pulse Rate 85 84 87 Respiratory Rate Blood Pressure O2 Sat by Pulse 0 L 0 L 100 Oximetry 11/29/16 11/29/16 11/29/16 02:20 02:25 02:30 Temperature Pulse Rate 85 83 82 Respiratory Rate Blood Pressure O2 Sat by Pulse 100 100 0 L Oximetry 11/29/16 11/29/16 11/29/16 02:35 02:36 02:40 Temperature Pulse Rate 83 85 82 Respiratory Rate Blood Pressure O2 Sat by Pulse 0 L 0 L 0 L Oximetry 11/29/16 11/29/16 11/29/16 02:45 02:51 02:58 Temperature Pulse Rate 84 82 95 H Respiratory Rate Blood Pressure O2 Sat by Pulse 0 L 0 L 99 Oximetry 11/29/16 11/29/16 11/29/16 03:03 03:08 03:13 Temperature Pulse Rate 81 79 80 Respiratory Rate Blood Pressure O2 Sat by Pulse 98 98 97 Oximetry 11/29/16 11/29/16 11/29/16 03:18 03:23 03:28 Temperature Pulse Rate 82 80 80 Respiratory Rate Blood Pressure O2 Sat by Pulse 98 98 98 Oximetry 11/29/16 11/29/16 11/29/16 03:33 03:38 03:43 Temperature Pulse Rate 81 82 84 Respiratory Rate Blood Pressure O2 Sat by Pulse 98 98 98 Oximetry 11/29/16 11/29/16 11/29/16 03:48 03:53 03:58 Temperature Pulse Rate 81 87 84 Respiratory Rate Blood Pressure O2 Sat by Pulse 99 99 99 Oximetry 11/29/16 11/29/16 11/29/16 04:03 04:09 04:14 Temperature Pulse Rate 82 81 82 Respiratory Rate Blood Pressure O2 Sat by Pulse 98 98 98 Oximetry 11/29/16 11/29/16 11/29/16 04:19 04:24 04:29 Temperature Pulse Rate 84 85 82 Respiratory Rate Blood Pressure O2 Sat by Pulse 99 99 99 Oximetry 11/29/16 11/29/16 11/29/16 04:34 04:39 04:44 Temperature Pulse Rate 82 83 81 Respiratory Rate Blood Pressure O2 Sat by Pulse 99 99 99 Oximetry 11/29/16 11/29/16 11/29/16 04:49 04:54 04:59 Temperature Pulse Rate 81 77 75 Respiratory Rate Blood Pressure O2 Sat by Pulse 99 98 99 Oximetry 11/29/16 11/29/16 11/29/16 05:14 05:19 05:26 Temperature Pulse Rate 71 78 74 Respiratory Rate Blood Pressure O2 Sat by Pulse 100 99 99 Oximetry 11/29/16 11/29/16 11/29/16 05:40 05:41 05:46 Temperature Pulse Rate 75 78 76 Respiratory Rate Blood Pressure O2 Sat by Pulse 63 L 86 98 Oximetry 11/29/16 11/29/16 11/29/16 05:51 05:56 06:01 Temperature Pulse Rate 74 75 77 Respiratory Rate Blood Pressure O2 Sat by Pulse 98 99 99 Oximetry 11/29/16 11/29/16 11/29/16 06:06 06:11 06:16 Temperature Pulse Rate 74 76 80 Respiratory Rate Blood Pressure O2 Sat by Pulse 99 99 99 Oximetry 11/29/16 11/29/16 11/29/16 06:21 06:26 06:31 Temperature Pulse Rate 76 74 74 Respiratory Rate Blood Pressure 144/79 O2 Sat by Pulse 100 100 100 Oximetry - Exam Breasts: normal Cardiovascular: Regular rate Lungs: Clear to auscultation, Normal air movement Abdomen: Present: normal appearance, soft Uterus: Present: normal FHR: auscultation normal, category 1 Uterine Tone Measurement Phase: Resting Extremities: normal Deep Tendon Reflex Grade: Normal +2 - Labs Labs: Abnormal Labs 11/18/16 11/18/16 11/19/16 05:15 05:15 08:22 WBC RBC 2.82 L 2.67 L Hgb 9.7 L 9.0 L Hct 28.4 L 27.2 L MCV 101 H 102 H MCH 34 H 34 H RDW 16.4 H 17.0 H Plt Count 86 L 80 L Seg Neuts % (Manual) Lymphocytes % (Manual) Monocytes % (Manual) Nucleated RBC % Seg Neutrophils # Man Monocytes # (Manual) Factor VIII:C Activity BUN Creatinine 0.3 L ALT Lactate Dehydrogenase 315 H Total Protein Albumin Urine Creatinine Ur Total Protein 24 Hr Urine Total Protein 11/19/16 11/20/16 11/20/16 Unknown 06:00 06:00 WBC RBC 2.59 L Hgb 8.9 L Hct 26.4 L MCV 102 H MCH 35 H RDW 16.9 H Plt Count 74 L Seg Neuts % (Manual) Lymphocytes % (Manual) Monocytes % (Manual) Nucleated RBC % Seg Neutrophils # Man Monocytes # (Manual) Factor VIII:C Activity BUN 6 L Creatinine 0.3 L ALT 5 L Lactate Dehydrogenase Total Protein 6.1 L Albumin 3.1 L Urine Creatinine 57.5 H Ur Total Protein 24 Hr 1792.00 H Urine Total Protein 64 H 11/21/16 11/21/16 11/21/16 06:49 19:40 19:40 WBC RBC Hgb Hct MCV MCH RDW Plt Count 83 L Seg Neuts % (Manual) Lymphocytes % (Manual) Monocytes % (Manual) Nucleated RBC % Seg Neutrophils # Man Monocytes # (Manual) Factor VIII:C Activity BUN Creatinine ALT 6 L Lactate Dehydrogenase 361 H Total Protein 6.2 L Albumin 3.2 L Urine Creatinine Ur Total Protein 24 Hr Urine Total Protein 11/21/16 11/21/16 11/22/16 19:40 19:40 20:05 WBC 12.0 H RBC 2.48 L 2.53 L Hgb 8.6 L 8.8 L Hct 25.4 L 26.3 L MCV 102 H 104 H MCH 35 H 35 H RDW 17.6 H 17.6 H Plt Count 87 L 91 L Seg Neuts % (Manual) Lymphocytes % (Manual) Monocytes % (Manual) 8.0 H Nucleated RBC % 6.0 H 3.0 H Seg Neutrophils # Man 8.0 H Monocytes # (Manual) 1.0 H Factor VIII:C Activity 223 H BUN Creatinine ALT Lactate Dehydrogenase Total Protein Albumin Urine Creatinine Ur Total Protein 24 Hr Urine Total Protein 11/23/16 11/24/16 11/25/16 18:40 19:06 08:51 WBC 14.6 H RBC 2.54 L 2.48 L Hgb 8.5 L 8.6 L Hct 26.2 L 26.0 L MCV 103 H 105 H MCH 33 H 35 H RDW 17.8 H 17.5 H Plt Count 92 L 102 L Seg Neuts % (Manual) 71.0 H Lymphocytes % (Manual) 11.0 L Monocytes % (Manual) Nucleated RBC % 6.0 H 6.0 H Seg Neutrophils # Man 10.4 H Monocytes # (Manual) Factor VIII:C Activity BUN Creatinine 0.4 L ALT Lactate Dehydrogenase 389 H Total Protein Albumin Urine Creatinine Ur Total Protein 24 Hr Urine Total Protein 11/25/16 11/27/16 11/28/16 08:51 18:43 08:13 WBC 15.1 H 17.7 H 24.6 H RBC 2.52 L 2.39 L 2.39 L Hgb 8.6 L 8.2 L 8.3 L Hct 26.6 L 25.4 L 25.2 L MCV 106 H 106 H 105 H MCH 34 H 34 H 35 H RDW 18.1 H 18.5 H 18.8 H Plt Count 108 L 115 L 115 L Seg Neuts % (Manual) 77.0 H Lymphocytes % (Manual) Monocytes % (Manual) 9.0 H Nucleated RBC % 4.0 H 30.0 H Seg Neutrophils # Man 11.6 H 13.6 H Monocytes # (Manual) 1.4 H Factor VIII:C Activity BUN Creatinine ALT Lactate Dehydrogenase Total Protein Albumin Urine Creatinine Ur Total Protein 24 Hr Urine Total Protein 11/28/16 08:13 WBC RBC Hgb Hct MCV MCH RDW Plt Count Seg Neuts % (Manual) Lymphocytes % (Manual) Monocytes % (Manual) Nucleated RBC % Seg Neutrophils # Man Monocytes # (Manual) Factor VIII:C Activity BUN Creatinine 0.4 L ALT Lactate Dehydrogenase 503 H Total Protein Albumin Urine Creatinine Ur Total Protein 24 Hr Urine Total Protein Laboratory Results - last 24 hr 11/28/16 11/28/16 11/28/16 08:13 08:13 14:00 WBC 24.6 H RBC 2.39 L Hgb 8.3 L Hct 25.2 L MCV 105 H MCH 35 H MCHC 33 RDW 18.8 H Plt Count 115 L Creatinine 0.4 L Estimated GFR > 60 Uric Acid 6.1 AST 27 ALT 10 Lactate Dehydrogenase 503 H Urine Color Yellow Urine Turbidity Clear Urine pH 6.0 Ur Specific [place] 1.009 Urine Protein 100 mg/dl Urine Glucose (UA) Neg Urine Ketones Neg Urine Blood Mod Urine Nitrite Neg Urine Bilirubin Neg Urine Urobilinogen < 2.0 Ur Leukocyte Esterase Neg Urine WBC (Auto) 1.0 Urine RBC (Auto) 2.0 U Epithel Cells (Auto) 1.0 Urine Bacteria (Auto) 2+
[2016-11-29] MEDS: NORMODYNE PO SCH ×2 (09:06→21:59)
[2016-11-29] MEDS: FEOSOL PO SCH (09:06)
[2016-11-29] MEDS: PRENATAL VITAMIN PO SCH (09:06)
--- NOTE | 2016-11-29 21:49 | Consultation ---
History of Present Illness - Reason for Consult Consult date: 11/29/16 - History of Present Illness Here to see this patient, but she was walking around. Records/labs reviewed. She is still on schedule for induction on this weekend. Medications and Allergies Allergies Allergy/AdvReac Type Severity Reaction Status Date / Time No Known Allergies Allergy Verified 11/21/16 06:18 Home Medications Medication Instructions Recorded Confirmed Last Taken Type Vit-Fe Fumar-FA [ 1 tab PO QDAY 10/25/16 11/20/16 11/17/16 12: 00 History Vitamin] 1 tab Active Meds: Active Medications Acetaminophen (Tylenol) 650 mg PO Q4H PRN PRN Reason: Pain MILD(1-3)/Fever >100.5/KONG Last Admin: 11/23/16 22:00 Dose: 650 mg Al Hydrox/Mg Hydrox/Simethicone (Alum-Mag Hydrox-Simeth [id number]/5ml) 30 ml PO Q6H PRN PRN Reason: Indigestion Betamethasone Acet/Betameth SodPhos (Celestone Soluspan) 12 mg IM Q24H [facility] Stop: 12/01/16 08:31 Docusate Sodium (Colace) 100 mg PO Q12H PRN PRN Reason: Constipation Ferrous Sulfate (Feosol) 325 mg PO QDAY [facility] Last Admin: 11/29/16 09:06 Dose: 325 mg Hydrocortisone Acetate (Proctosol-Hc) 1 applic MN Q8H PRN PRN Reason: Hemorrhoids Lactated Ringer's (Lactated Ringers) 1,000 mls @ 125 mls/hr IV DIRECT [facility] Last Admin: 11/19/16 16:17 Dose: 125 mls/hr Labetalol HCl (Normodyne) 200 mg PO BID [facility] Last Admin: 11/29/16 09:06 Dose: 200 mg Magnesium Hydroxide (Milk Of Magnesia) 30 ml PO QHS PRN PRN Reason: Laxative Effect Methylprednisolone Sodium Succinate (Solu-Medrol) 40 mg IV Q8H [facility] Last Admin: 11/29/16 17:25 Dose: 40 mg Multivitamins/Iron/Calcium ( Vitamin) 1 each PO QDAY [facility] Last Admin: 11/29/16 09:06 Dose: 1 each Ondansetron HCl (Zofran) 4 mg IV Q6H PRN PRN Reason: Nausea And Vomiting Sodium Chloride (Deep Sea) 1 spray NS PRN PRN PRN Reason: Dry Nasal Passages Last Admin: 11/24/16 11:54 Dose: 1 spray Zolpidem Tartrate (Ambien) 10 mg PO ONCE PRN PRN Reason: Sleep Last Admin: 11/28/16 23:43 Dose: 10 mg Exam - Constitutional Vitals: Temp Pulse Resp BP Pulse Ox 97.9 F 76 18 141/87 89 11/28/16 20:10 11/29/16 09:06 11/28/16 20:10 11/29/16 09:06 11/29/16 08:27 Results - Labs CBC & Chem 7: 11/28/16 08:13 11/28/16 08:13 Assessment and Plan - Patient Problems (1) Thrombocytopenia complicating Current Visit: Yes Status: Acute Plan to address problem: This may be part of pre eclampsia., see some lab order. If needed, ie PLT less or equal to 20,000, or symptomatic. Awaiting new lab results. so far, PLT improved a bit. SEE note above. PLT continues to improve. Next lab draw is tomorrow as per OB team follow lab draws with primary team. (2) Leukocytosis Current Visit: Yes Status: Acute Qualifiers: Leukocytosis type: other Qualified Code(s): D72.828 - Other elevated white blood cell count Plan to address problem: This is due to steroids.
[2016-11-29] MEDS: AMBIEN PO PRN (23:30)
--- NOTE | 2016-11-30 07:50 | Progress Note ---
Assessment and Plan A: 1. IUP 33 5/7 weeks gestation 2. CHTN w/superimposed preeclampsia (w/severe range BPs) 3. Thrombocytopenia , Heme following 4. S/p betamethasone 10/25-10/26 REC: 1. Continue labetalol at current dose , titrate to maintain BP 120-160/80-105. IV Hydralazine prn SBP>160 mmhg, DBP>105mmhg 2. Twice weekly BPP 3. For repeat course of steroids 4. Management of thrombocytopenia per heme 5. Deliver at 34 weeks EGA, sooner if indicated Reviewed with Dr Spence Subjective - Subjective Date of service: 11/30/16 Principal diagnosis: IUP 33w5d, CHTN w/superimposed preeclampsia, thrombocytopenia Interval history: She has no complaints Would like to sleep Patient reports: movement normal, other (denies KONG, visual changes or epigastric pain), no new complaints, no loss of fluid, no vaginal bleeding, no contractions Objective - Vital Signs Vital Signs: Vital Signs - 12hr 11/29/16 11/29/16 11/29/16 21:59 22:02 22:10 Temperature 98.1 F Pulse Rate 92 H 92 H 90 Blood Pressure 162/88 162/88 137/73 O2 Sat by Pulse Oximetry 11/30/16 00:07 Temperature Pulse Rate 94 H Blood Pressure O2 Sat by Pulse 99 Oximetry - Exam Narrative Exam: Laying in bed NAD Extremities: normal, edema (absent) - Labs Labs: Abnormal Labs 11/18/16 11/18/16 11/19/16 05:15 05:15 08:22 WBC RBC 2.82 L 2.67 L Hgb 9.7 L 9.0 L Hct 28.4 L 27.2 L MCV 101 H 102 H MCH 34 H 34 H RDW 16.4 H 17.0 H Plt Count 86 L 80 L Seg Neuts % (Manual) Lymphocytes % (Manual) Monocytes % (Manual) Nucleated RBC % Seg Neutrophils # Man Monocytes # (Manual) Factor VIII:C Activity BUN Creatinine 0.3 L ALT Lactate Dehydrogenase 315 H Total Protein Albumin Urine Creatinine Ur Total Protein 24 Hr Urine Total Protein 11/19/16 11/20/16 11/20/16 Unknown 06:00 06:00 WBC RBC 2.59 L Hgb 8.9 L Hct 26.4 L MCV 102 H MCH 35 H RDW 16.9 H Plt Count 74 L Seg Neuts % (Manual) Lymphocytes % (Manual) Monocytes % (Manual) Nucleated RBC % Seg Neutrophils # Man Monocytes # (Manual) Factor VIII:C Activity BUN 6 L Creatinine 0.3 L ALT 5 L Lactate Dehydrogenase Total Protein 6.1 L Albumin 3.1 L Urine Creatinine 57.5 H Ur Total Protein 24 Hr 1792.00 H Urine Total Protein 64 H 11/21/16 11/21/16 11/21/16 06:49 19:40 19:40 WBC RBC Hgb Hct MCV MCH RDW Plt Count 83 L Seg Neuts % (Manual) Lymphocytes % (Manual) Monocytes % (Manual) Nucleated RBC % Seg Neutrophils # Man Monocytes # (Manual) Factor VIII:C Activity BUN Creatinine ALT 6 L Lactate Dehydrogenase 361 H Total Protein 6.2 L Albumin 3.2 L Urine Creatinine Ur Total Protein 24 Hr Urine Total Protein 11/21/16 11/21/16 11/22/16 19:40 19:40 20:05 WBC 12.0 H RBC 2.48 L 2.53 L Hgb 8.6 L 8.8 L Hct 25.4 L 26.3 L MCV 102 H 104 H MCH 35 H 35 H RDW 17.6 H 17.6 H Plt Count 87 L 91 L Seg Neuts % (Manual) Lymphocytes % (Manual) Monocytes % (Manual) 8.0 H Nucleated RBC % 6.0 H 3.0 H Seg Neutrophils # Man 8.0 H Monocytes # (Manual) 1.0 H Factor VIII:C Activity 223 H BUN Creatinine ALT Lactate Dehydrogenase Total Protein Albumin Urine Creatinine Ur Total Protein 24 Hr Urine Total Protein 11/23/16 11/24/16 11/25/16 18:40 19:06 08:51 WBC 14.6 H RBC 2.54 L 2.48 L Hgb 8.5 L 8.6 L Hct 26.2 L 26.0 L MCV 103 H 105 H MCH 33 H 35 H RDW 17.8 H 17.5 H Plt Count 92 L 102 L Seg Neuts % (Manual) 71.0 H Lymphocytes % (Manual) 11.0 L Monocytes % (Manual) Nucleated RBC % 6.0 H 6.0 H Seg Neutrophils # Man 10.4 H Monocytes # (Manual) Factor VIII:C Activity BUN Creatinine 0.4 L ALT Lactate Dehydrogenase 389 H Total Protein Albumin Urine Creatinine Ur Total Protein 24 Hr Urine Total Protein 11/25/16 11/27/16 11/28/16 08:51 18:43 08:13 WBC 15.1 H 17.7 H 24.6 H RBC 2.52 L 2.39 L 2.39 L Hgb 8.6 L 8.2 L 8.3 L Hct 26.6 L 25.4 L 25.2 L MCV 106 H 106 H 105 H MCH 34 H 34 H 35 H RDW 18.1 H 18.5 H 18.8 H Plt Count 108 L 115 L 115 L Seg Neuts % (Manual) 77.0 H Lymphocytes % (Manual) Monocytes % (Manual) 9.0 H Nucleated RBC % 4.0 H 30.0 H Seg Neutrophils # Man 11.6 H 13.6 H Monocytes # (Manual) 1.4 H Factor VIII:C Activity BUN Creatinine ALT Lactate Dehydrogenase Total Protein Albumin Urine Creatinine Ur Total Protein 24 Hr Urine Total Protein 11/28/16 08:13 WBC RBC Hgb Hct MCV MCH RDW Plt Count Seg Neuts % (Manual) Lymphocytes % (Manual) Monocytes % (Manual) Nucleated RBC % Seg Neutrophils # Man Monocytes # (Manual) Factor VIII:C Activity BUN Creatinine 0.4 L ALT Lactate Dehydrogenase 503 H Total Protein Albumin Urine Creatinine Ur Total Protein 24 Hr Urine Total Protein - Results US- obstetric: report reviewed (11/27/16 SIUP Ceph Ant plac EFW 1967gm ( 4lb 5lbs 18% ) CRISTINA 15.4cm BPP 05/22 )
--- NOTE | 2016-11-30 09:02 | Progress Note ---
Assessment and Plan - Patient Problems (1) 33 weeks gestation of Current Visit: Yes Status: Acute (2) Pre-eclampsia superimposed on chronic hypertension, antepartum Current Visit: Yes Status: Acute Plan to address problem: Per AM[facility]: 1. IUP 33 5/7 weeks gestation 2. CHTN w/superimposed preeclampsia (w/severe range BPs) 3. Thrombocytopenia , Heme following 4. S/p betamethasone 10/25-10/26 REC: 1. Continue labetalol at current dose , titrate to maintain BP 120-160/80-105. IV Hydralazine prn SBP>160 mmhg, DBP>105mmhg 2. Twice weekly BPP 3. For repeat course of steroids today 4. Management of thrombocytopenia per heme 5. Deliver at 34 weeks EGA, sooner if indicated (3) Thrombocytopenia affecting , antepartum Current Visit: Yes Status: Acute (4) Leukocytosis Current Visit: Yes Status: Acute Qualifiers: Leukocytosis type: other Qualified Code(s): D72.828 - Other elevated white blood cell count (5) Smoker Current Visit: No Status: Acute Subjective - Subjective Date of service: 11/30/16 Principal diagnosis: IUP 33w5d, CHTN w/superimposed preeclampsia, thrombocytopenia Interval history: Denies KONG, visual changes and RUQ pain Patient reports: movement normal, other (denies KONG, visual changes or epigastric pain), no new complaints, no loss of fluid, no vaginal bleeding, no contractions Objective - Vital Signs Vital Signs: Vital Signs - 12hr 11/29/16 11/29/16 11/29/16 21:59 22:02 22:10 Temperature 98.1 F Pulse Rate 92 H 92 H 90 Blood Pressure 162/88 162/88 137/73 O2 Sat by Pulse Oximetry 11/30/16 00:07 Temperature Pulse Rate 94 H Blood Pressure O2 Sat by Pulse 99 Oximetry - Exam Breasts: deferred Cardiovascular: Regular rate Lungs: Clear to auscultation, Normal air movement Abdomen: Present: normal appearance, soft Uterus: Present: normal FHR: category 1 FHR comments: last pm, pending for today Extremities: normal Deep Tendon Reflex Grade: Normal +2 - Labs Labs: Abnormal Labs 11/18/16 11/18/16 11/19/16 05:15 05:15 08:22 WBC RBC 2.82 L 2.67 L Hgb 9.7 L 9.0 L Hct 28.4 L 27.2 L MCV 101 H 102 H MCH 34 H 34 H RDW 16.4 H 17.0 H Plt Count 86 L 80 L Seg Neuts % (Manual) Lymphocytes % (Manual) Monocytes % (Manual) Nucleated RBC % Seg Neutrophils # Man Monocytes # (Manual) Factor VIII:C Activity BUN Creatinine 0.3 L ALT Lactate Dehydrogenase 315 H Total Protein Albumin Urine Creatinine Ur Total Protein 24 Hr Urine Total Protein 11/19/16 11/20/16 11/20/16 Unknown 06:00 06:00 WBC RBC 2.59 L Hgb 8.9 L Hct 26.4 L MCV 102 H MCH 35 H RDW 16.9 H Plt Count 74 L Seg Neuts % (Manual) Lymphocytes % (Manual) Monocytes % (Manual) Nucleated RBC % Seg Neutrophils # Man Monocytes # (Manual) Factor VIII:C Activity BUN 6 L Creatinine 0.3 L ALT 5 L Lactate Dehydrogenase Total Protein 6.1 L Albumin 3.1 L Urine Creatinine 57.5 H Ur Total Protein 24 Hr 1792.00 H Urine Total Protein 64 H 11/21/16 11/21/16 11/21/16 06:49 19:40 19:40 WBC RBC Hgb Hct MCV MCH RDW Plt Count 83 L Seg Neuts % (Manual) Lymphocytes % (Manual) Monocytes % (Manual) Nucleated RBC % Seg Neutrophils # Man Monocytes # (Manual) Factor VIII:C Activity BUN Creatinine ALT 6 L Lactate Dehydrogenase 361 H Total Protein 6.2 L Albumin 3.2 L Urine Creatinine Ur Total Protein 24 Hr Urine Total Protein 11/21/16 11/21/16 11/22/16 19:40 19:40 20:05 WBC 12.0 H RBC 2.48 L 2.53 L Hgb 8.6 L 8.8 L Hct 25.4 L 26.3 L MCV 102 H 104 H MCH 35 H 35 H RDW 17.6 H 17.6 H Plt Count 87 L 91 L Seg Neuts % (Manual) Lymphocytes % (Manual) Monocytes % (Manual) 8.0 H Nucleated RBC % 6.0 H 3.0 H Seg Neutrophils # Man 8.0 H Monocytes # (Manual) 1.0 H Factor VIII:C Activity 223 H BUN Creatinine ALT Lactate Dehydrogenase Total Protein Albumin Urine Creatinine Ur Total Protein 24 Hr Urine Total Protein 11/23/16 11/24/16 11/25/16 18:40 19:06 08:51 WBC 14.6 H RBC 2.54 L 2.48 L Hgb 8.5 L 8.6 L Hct 26.2 L 26.0 L MCV 103 H 105 H MCH 33 H 35 H RDW 17.8 H 17.5 H Plt Count 92 L 102 L Seg Neuts % (Manual) 71.0 H Lymphocytes % (Manual) 11.0 L Monocytes % (Manual) Nucleated RBC % 6.0 H 6.0 H Seg Neutrophils # Man 10.4 H Monocytes # (Manual) Factor VIII:C Activity BUN Creatinine 0.4 L ALT Lactate Dehydrogenase 389 H Total Protein Albumin Urine Creatinine Ur Total Protein 24 Hr Urine Total Protein 11/25/16 11/27/16 11/28/16 08:51 18:43 08:13 WBC 15.1 H 17.7 H 24.6 H RBC 2.52 L 2.39 L 2.39 L Hgb 8.6 L 8.2 L 8.3 L Hct 26.6 L 25.4 L 25.2 L MCV 106 H 106 H 105 H MCH 34 H 34 H 35 H RDW 18.1 H 18.5 H 18.8 H Plt Count 108 L 115 L 115 L Seg Neuts % (Manual) 77.0 H Lymphocytes % (Manual) Monocytes % (Manual) 9.0 H Nucleated RBC % 4.0 H 30.0 H Seg Neutrophils # Man 11.6 H 13.6 H Monocytes # (Manual) 1.4 H Factor VIII:C Activity BUN Creatinine ALT Lactate Dehydrogenase Total Protein Albumin Urine Creatinine Ur Total Protein 24 Hr Urine Total Protein 11/28/16 08:13 WBC RBC Hgb Hct MCV MCH RDW Plt Count Seg Neuts % (Manual) Lymphocytes % (Manual) Monocytes % (Manual) Nucleated RBC % Seg Neutrophils # Man Monocytes # (Manual) Factor VIII:C Activity BUN Creatinine 0.4 L ALT Lactate Dehydrogenase 503 H Total Protein Albumin Urine Creatinine Ur Total Protein 24 Hr Urine Total Protein
[2016-11-30] MEDS: FEOSOL PO SCH (09:34)
[2016-11-30] MEDS: NORMODYNE PO SCH ×2 (09:35→22:09)
[2016-11-30] MEDS: PRENATAL VITAMIN PO SCH (09:36)
[2016-11-30] MEDS: CELESTONE SOLUSPAN IM SCH (09:38)
[2016-11-30] MEDS ORDERED: CELESTONE SOLUSPAN IM SCH (10:00)
--- NOTE | 2016-11-30 11:13 | Ultrasound Report ---
BIOPHYSICAL PROFILE: INDICATION: well being. COMPARISON: 11/27/2016. TECHNIQUE: Transabdominal ultrasound with Doppler interrogation. 2 - breathing movements 2 - movements 2 - posture and tone 2 - Qualitative amniotic fluid volume 8 - TOTAL SCORE OF POSSIBLE 8 Heart Rate (bpm) 145
--- NOTE | 2016-11-30 11:17 | Ultrasound Report ---
OB LIMITED INDICATION: well being. COMPARISON: 11/27/2016 TECHNIQUE: Transabdominal grayscale ultrasound with Doppler interrogation. Gestation: [place] Position: Cephalic Amniotic Fluid: WNL (7-24 cm) CRISTINA = 21.1 cm Heart Rate: 149 BPM
--- NOTE | 2016-11-30 19:32 | Event Note ---
Date: 11/30/16 Strip reviewed. Will need to place her back on the monitor. Patient refused
[2016-11-30] MEDS: LACTATED RINGERS 1,000 ML IV SCH (21:15)
--- NOTE | 2016-11-30 23:52 | Consultation ---
History of Present Illness - Reason for Consult Consult date: 11/30/16 - History of Present Illness Patient seen/examined earlier today. She had OB US done this am. Labs reviewed, no new issues. She is still scheduled for induction on sunday. Medications and Allergies Allergies Allergy/AdvReac Type Severity Reaction Status Date / Time No Known Allergies Allergy Verified 11/21/16 06:18 Home Medications Medication Instructions Recorded Confirmed Last Taken Type Vit-Fe Fumar-FA [ 1 tab PO QDAY 10/25/16 11/20/16 11/17/16 12: 00 History Vitamin] 1 tab Active Meds: Active Medications Acetaminophen (Tylenol) 650 mg PO Q4H PRN PRN Reason: Pain MILD(1-3)/Fever >100.5/KONG Last Admin: 11/23/16 22:00 Dose: 650 mg Al Hydrox/Mg Hydrox/Simethicone (Alum-Mag Hydrox-Simeth [phone]/5ml) 30 ml PO Q6H PRN PRN Reason: Indigestion Betamethasone Acet/Betameth SodPhos (Celestone Soluspan) 12 mg IM Q24H [facility] Stop: 12/01/16 08:31 Last Admin: 11/30/16 09:38 Dose: 12 mg Docusate Sodium (Colace) 100 mg PO Q12H PRN PRN Reason: Constipation Ferrous Sulfate (Feosol) 325 mg PO QDAY [facility] Last Admin: 11/30/16 09:34 Dose: 325 mg Hydrocortisone Acetate (Proctosol-Hc) 1 applic IN Q8H PRN PRN Reason: Hemorrhoids Lactated Ringer's (Lactated Ringers) 1,000 mls @ 125 mls/hr IV DIRECT [facility] Last Admin: 11/19/16 16:17 Dose: 125 mls/hr Labetalol HCl (Normodyne) 200 mg PO BID [facility] Last Admin: 11/30/16 22:09 Dose: 200 mg Magnesium Hydroxide (Milk Of Magnesia) 30 ml PO QHS PRN PRN Reason: Laxative Effect Multivitamins/Iron/Calcium ( Vitamin) 1 each PO QDAY [facility] Last Admin: 11/30/16 09:36 Dose: 1 each Ondansetron HCl (Zofran) 4 mg IV Q6H PRN PRN Reason: Nausea And Vomiting Sodium Chloride (Deep Sea) 1 spray NS PRN PRN PRN Reason: Dry Nasal Passages Last Admin: 11/24/16 11:54 Dose: 1 spray Zolpidem Tartrate (Ambien) 10 mg PO ONCE PRN PRN Reason: Sleep Last Admin: 11/29/16 23:30 Dose: 10 mg Exam - Constitutional Vitals: Temp Pulse Resp BP Pulse Ox 97.6 F 93 H 20 146/78 99 11/30/16 12:51 11/30/16 23:20 11/30/16 12:51 11/30/16 22:09 11/30/16 23:20 General appearance: Present: no acute distress, well-nourished - EENT Eyes: Present: PERRL ENT: hearing intact, clear oral mucosa - Neck Neck: Present: supple, normal ROM - Respiratory Respiratory effort: normal Respiratory: bilateral: CTA - Cardiovascular Heart Sounds: Present: S1 & S2. Absent: rub, click - Extremities Extremities: pulses symmetrical, No edema Peripheral Pulses: within normal limits - Abdominal General gastrointestinal: Present: soft, non-tender, non-distended, normal bowel sounds Female genitourinary: Present: deferred - Rectal Rectal Exam: deferred - Integumentary Integumentary: Present: clear, warm, dry - Musculoskeletal Musculoskeletal: gait normal, strength equal bilaterally - Psychiatric Psychiatric: appropriate mood/affect, intact judgment & insight - Neurologic Neurologic: CNII-XII intact, moves all extremities Results - Labs CBC & Chem 7: 11/28/16 08:13 11/28/16 08:13 Assessment and Plan - Patient Problems (1) Thrombocytopenia complicating Current Visit: Yes Status: Acute Plan to address problem: This may be part of pre eclampsia., see some lab order. If needed, ie PLT less or equal to 20,000, or symptomatic. Awaiting new lab results. so far, PLT improved a bit. SEE note above. PLT continues to improve. Next lab draw is tomorrow as per OB team follow lab draws with primary team. (2) Leukocytosis Current Visit: Yes Status: Acute Qualifiers: Leukocytosis type: other Qualified Code(s): D72.828 - Other elevated white blood cell count Plan to address problem: This is due to steroids.
[2016-12-01 07:16] LABS: Hematocrit 25.5 % (30.3-42.9); Hemoglobin 8.3 gm/dl (10.1-14.3); Mean Corpuscular HGB Conc 33 % (30-34); Mean Corpuscular Hemoglobin 35 pg (28-32); Mean Corpuscular Volume 107 fl (79-97); Red Blood Count 2.38 M/mm3 (3.65-5.03); Red Cell Distribution Width 18.8 % (13.2-15.2)
[2016-12-01 07:17] LABS: White Blood Count 24.3 K/mm3 (4.5-11.0)
[2016-12-01 07:18] LABS: Platelet Count 80 K/mm3 (140-440)
[2016-12-01 07:35] LABS: Alanine Aminotransferase 10 units/L (7-56); Lactate Dehydrogenase 573 units/L (91-180); Uric Acid 6.3 mg/dL (3.5-7.6)
[2016-12-01] MEDS: CELESTONE SOLUSPAN IM SCH (09:37)
[2016-12-01] MEDS: LACTATED RINGERS 1,000 ML IV SCH (10:03)
[2016-12-01] MEDS: FEOSOL PO SCH (10:14)
[2016-12-01] MEDS: NORMODYNE PO SCH ×2 (10:14→23:39)
[2016-12-01] MEDS: PRENATAL VITAMIN PO SCH (10:14)
--- NOTE | 2016-12-01 11:01 | Progress Note ---
Assessment and Plan IOL scheduled for 34 weeks (tomorrow) 12/02/16. Second dose of BMZ administered this AM. Patient very agitated staying in bed for monitoring. if CAT 1 tracing she may come off for shower. plan to check cervix this afternoon to determine method of induction. Patient verbalizes understanding of plan. - Patient Problems (1) Hypertension affecting in third trimester Current Visit: No Status: Acute (2) Pre-eclampsia superimposed on chronic hypertension, antepartum Current Visit: Yes Status: Acute Plan to address problem: IOL 12/02/16 (3) Thrombocytopenia affecting , antepartum Current Visit: Yes Status: Acute Plan to address problem: platelets down to 80 today (12/01/16) (4) 33 weeks gestation of Current Visit: Yes Status: Acute Plan to address problem: NSTs until IOL begins then continuos monitoring Patient understands she will have to remain in bed with monitoring while IOL is in progress Subjective - Subjective Date of service: 12/01/16 Principal diagnosis: IUP 33w6d, CHTN w/superimposed preeclampsia, thrombocytopenia Patient reports: movement normal, other (denies KONG, visual changes or epigastric pain), no new complaints, no loss of fluid, no vaginal bleeding, no contractions Objective - Vital Signs Vital Signs: Vital Signs - 12hr 11/30/16 11/30/16 11/30/16 23:05 23:10 23:15 Temperature Pulse Rate 92 H 90 91 H Pulse Rate [ Right From Monitor] Respiratory Rate Blood Pressure Blood Pressure [Right Arm] O2 Sat by Pulse 99 99 98 Oximetry 11/30/16 12/01/16 12/01/16 23:20 08:46 08:47 Temperature 98.6 F Pulse Rate 93 H 76 Pulse Rate [ 82 Right From Monitor] Respiratory 18 Rate Blood Pressure 164/96 Blood Pressure 164/96 [Right Arm] O2 Sat by Pulse 99 99 98 Oximetry 12/01/16 12/01/16 12/01/16 08:48 08:49 10:14 Temperature Pulse Rate 76 Pulse Rate [ Right From Monitor] Respiratory Rate Blood Pressure 146/81 146/81 Blood Pressure 146/81 [Right Arm] O2 Sat by Pulse Oximetry - Exam Breasts: normal Cardiovascular: Regular rate Lungs: Clear to auscultation, Normal air movement Abdomen: Present: normal appearance, soft Vulva: both: normal Uterus: Present: normal FHR: auscultation normal, category 1 Uterine Contraction Monitor Mode: External Uterine Contraction Frequency (min): irregular Uterine Contraction Pattern: Irregular Uterine Tone Measurement Phase: Resting Uterine Contraction Intensity: Mild Extremities: normal Deep Tendon Reflex Grade: Normal +2 - Labs Labs: Abnormal Labs 11/18/16 11/18/16 11/19/16 05:15 05:15 08:22 WBC RBC 2.82 L 2.67 L Hgb 9.7 L 9.0 L Hct 28.4 L 27.2 L MCV 101 H 102 H MCH 34 H 34 H RDW 16.4 H 17.0 H Plt Count 86 L 80 L Seg Neuts % (Manual) Lymphocytes % (Manual) Monocytes % (Manual) Nucleated RBC % Seg Neutrophils # Man Monocytes # (Manual) Factor VIII:C Activity BUN Creatinine 0.3 L ALT Lactate Dehydrogenase 315 H Total Protein Albumin Urine Creatinine Ur Total Protein 24 Hr Urine Total Protein 11/19/16 11/20/16 11/20/16 Unknown 06:00 06:00 WBC RBC 2.59 L Hgb 8.9 L Hct 26.4 L MCV 102 H MCH 35 H RDW 16.9 H Plt Count 74 L Seg Neuts % (Manual) Lymphocytes % (Manual) Monocytes % (Manual) Nucleated RBC % Seg Neutrophils # Man Monocytes # (Manual) Factor VIII:C Activity BUN 6 L Creatinine 0.3 L ALT 5 L Lactate Dehydrogenase Total Protein 6.1 L Albumin 3.1 L Urine Creatinine 57.5 H Ur Total Protein 24 Hr 1792.00 H Urine Total Protein 64 H 11/21/16 11/21/16 11/21/16 06:49 19:40 19:40 WBC RBC Hgb Hct MCV MCH RDW Plt Count 83 L Seg Neuts % (Manual) Lymphocytes % (Manual) Monocytes % (Manual) Nucleated RBC % Seg Neutrophils # Man Monocytes # (Manual) Factor VIII:C Activity BUN Creatinine ALT 6 L Lactate Dehydrogenase 361 H Total Protein 6.2 L Albumin 3.2 L Urine Creatinine Ur Total Protein 24 Hr Urine Total Protein 11/21/16 11/21/16 11/22/16 19:40 19:40 20:05 WBC 12.0 H RBC 2.48 L 2.53 L Hgb 8.6 L 8.8 L Hct 25.4 L 26.3 L MCV 102 H 104 H MCH 35 H 35 H RDW 17.6 H 17.6 H Plt Count 87 L 91 L Seg Neuts % (Manual) Lymphocytes % (Manual) Monocytes % (Manual) 8.0 H Nucleated RBC % 6.0 H 3.0 H Seg Neutrophils # Man 8.0 H Monocytes # (Manual) 1.0 H Factor VIII:C Activity 223 H BUN Creatinine ALT Lactate Dehydrogenase Total Protein Albumin Urine Creatinine Ur Total Protein 24 Hr Urine Total Protein 11/23/16 11/24/16 11/25/16 18:40 19:06 08:51 WBC 14.6 H RBC 2.54 L 2.48 L Hgb 8.5 L 8.6 L Hct 26.2 L 26.0 L MCV 103 H 105 H MCH 33 H 35 H RDW 17.8 H 17.5 H Plt Count 92 L 102 L Seg Neuts % (Manual) 71.0 H Lymphocytes % (Manual) 11.0 L Monocytes % (Manual) Nucleated RBC % 6.0 H 6.0 H Seg Neutrophils # Man 10.4 H Monocytes # (Manual) Factor VIII:C Activity BUN Creatinine 0.4 L ALT Lactate Dehydrogenase 389 H Total Protein Albumin Urine Creatinine Ur Total Protein 24 Hr Urine Total Protein 11/25/16 11/27/16 11/28/16 08:51 18:43 08:13 WBC 15.1 H 17.7 H 24.6 H RBC 2.52 L 2.39 L 2.39 L Hgb 8.6 L 8.2 L 8.3 L Hct 26.6 L 25.4 L 25.2 L MCV 106 H 106 H 105 H MCH 34 H 34 H 35 H RDW 18.1 H 18.5 H 18.8 H Plt Count 108 L 115 L 115 L Seg Neuts % (Manual) 77.0 H Lymphocytes % (Manual) Monocytes % (Manual) 9.0 H Nucleated RBC % 4.0 H 30.0 H Seg Neutrophils # Man 11.6 H 13.6 H Monocytes # (Manual) 1.4 H Factor VIII:C Activity BUN Creatinine ALT Lactate Dehydrogenase Total Protein Albumin Urine Creatinine Ur Total Protein 24 Hr Urine Total Protein 11/28/16 12/01/16 12/01/16 08:13 06:49 06:49 WBC 24.3 H RBC 2.38 L Hgb 8.3 L Hct 25.5 L MCV 107 H MCH 35 H RDW 18.8 H Plt Count 80 L Seg Neuts % (Manual) Lymphocytes % (Manual) Monocytes % (Manual) Nucleated RBC % Seg Neutrophils # Man Monocytes # (Manual) Factor VIII:C Activity BUN Creatinine 0.4 L 0.4 L ALT Lactate Dehydrogenase 503 H 573 H Total Protein Albumin Urine Creatinine Ur Total Protein 24 Hr Urine Total Protein Laboratory Results - last 24 hr 12/01/16 12/01/16 12/01/16 06:49 06:49 06:50 WBC 24.3 H RBC 2.38 L Hgb 8.3 L Hct 25.5 L MCV 107 H MCH 35 H MCHC 33 RDW 18.8 H Plt Count 80 L Creatinine 0.4 L Estimated GFR > 60 Uric Acid 6.3 AST 27 ALT 10 Lactate Dehydrogenase 573 H Blood Type A POSITIVE Antibody Screen Negative
--- NOTE | 2016-12-01 15:28 | Event Note ---
Date: 12/01/16 Notes/records reviewed. no new issues, labs/us fairly stable.Will follow you , and monitor labs, and adjust as she delivers.
[2016-12-01] MEDS ORDERED: NACL 0.9% 500 ML 500 ML IV SCH (17:10)
--- NOTE | 2016-12-01 17:13 | Progress Note ---
Assessment and Plan SVE done, plan discussed for IOL starting tonight at midnight with cervidil and then pitocin tomorrow. Patient aware IOL could take several days and she will need to remain on the monitor. Dr. Alberts recommends patient have transfusion 2 units of platelets. Order in EMR, patient informed of recommendation and risks of both low platelets and receiving blood products. She is undecided at this time if she will accept the transfusion. Patient agrees with plan of care. Dr. dodd aware of current plan of care. - Patient Problems (1) Hypertension affecting in third trimester Current Visit: No Status: Acute (2) Pre-eclampsia superimposed on chronic hypertension, antepartum Current Visit: Yes Status: Acute (3) Thrombocytopenia affecting , antepartum Current Visit: Yes Status: Acute (4) 33 weeks gestation of Current Visit: Yes Status: Acute Subjective - Subjective Date of service: 12/01/16 Principal diagnosis: IUP 33w6d, CHTN w/superimposed preeclampsia, thrombocytopenia Patient reports: movement normal, other (denies KONG, visual changes or epigastric pain), no new complaints, no loss of fluid, no vaginal bleeding, no contractions Objective - Vital Signs Vital Signs: Vital Signs - 12hr 12/01/16 12/01/16 12/01/16 08:46 08:47 08:48 Temperature 98.6 F Pulse Rate 76 Pulse Rate [ 82 Right From Monitor] Respiratory 18 Rate Blood Pressure 164/96 Blood Pressure 164/96 146/81 [Right Arm] O2 Sat by Pulse 99 98 Oximetry 12/01/16 12/01/16 12/01/16 08:49 10:14 12:05 Temperature Pulse Rate 76 94 H Pulse Rate [ Right From Monitor] Respiratory Rate Blood Pressure 146/81 146/81 Blood Pressure [Right Arm] O2 Sat by Pulse 100 Oximetry 12/01/16 12/01/16 12/01/16 12:06 15:35 15:36 Temperature 98.9 F 98.9 F Pulse Rate 88 88 89 Pulse Rate [ 86 89 Right From Monitor] Respiratory 18 18 Rate Blood Pressure 156/82 141/78 Blood Pressure 156/82 141/78 [Right Arm] O2 Sat by Pulse 100 99 99 Oximetry - Exam Breasts: normal Cardiovascular: Regular rate Lungs: Clear to auscultation, Normal air movement Abdomen: Present: normal appearance, soft Vulva: both: normal Uterus: Present: normal Cervical Dilatation: 0.5 Cervical Effacement Percentage: 40 station: -3 Uterine Tone Measurement Phase: Resting Extremities: normal Deep Tendon Reflex Grade: Normal +2 - Labs Labs: Abnormal Labs 11/18/16 11/18/16 11/19/16 05:15 05:15 08:22 WBC RBC 2.82 L 2.67 L Hgb 9.7 L 9.0 L Hct 28.4 L 27.2 L MCV 101 H 102 H MCH 34 H 34 H RDW 16.4 H 17.0 H Plt Count 86 L 80 L Seg Neuts % (Manual) Lymphocytes % (Manual) Monocytes % (Manual) Nucleated RBC % Seg Neutrophils # Man Monocytes # (Manual) Factor VIII:C Activity BUN Creatinine 0.3 L ALT Lactate Dehydrogenase 315 H Total Protein Albumin Urine Creatinine Ur Total Protein 24 Hr Urine Total Protein 11/19/16 11/20/16 11/20/16 Unknown 06:00 06:00 WBC RBC 2.59 L Hgb 8.9 L Hct 26.4 L MCV 102 H MCH 35 H RDW 16.9 H Plt Count 74 L Seg Neuts % (Manual) Lymphocytes % (Manual) Monocytes % (Manual) Nucleated RBC % Seg Neutrophils # Man Monocytes # (Manual) Factor VIII:C Activity BUN 6 L Creatinine 0.3 L ALT 5 L Lactate Dehydrogenase Total Protein 6.1 L Albumin 3.1 L Urine Creatinine 57.5 H Ur Total Protein 24 Hr 1792.00 H Urine Total Protein 64 H 11/21/16 11/21/16 11/21/16 06:49 19:40 19:40 WBC RBC Hgb Hct MCV MCH RDW Plt Count 83 L Seg Neuts % (Manual) Lymphocytes % (Manual) Monocytes % (Manual) Nucleated RBC % Seg Neutrophils # Man Monocytes # (Manual) Factor VIII:C Activity BUN Creatinine ALT 6 L Lactate Dehydrogenase 361 H Total Protein 6.2 L Albumin 3.2 L Urine Creatinine Ur Total Protein 24 Hr Urine Total Protein 11/21/16 11/21/16 11/22/16 19:40 19:40 20:05 WBC 12.0 H RBC 2.48 L 2.53 L Hgb 8.6 L 8.8 L Hct 25.4 L 26.3 L MCV 102 H 104 H MCH 35 H 35 H RDW 17.6 H 17.6 H Plt Count 87 L 91 L Seg Neuts % (Manual) Lymphocytes % (Manual) Monocytes % (Manual) 8.0 H Nucleated RBC % 6.0 H 3.0 H Seg Neutrophils # Man 8.0 H Monocytes # (Manual) 1.0 H Factor VIII:C Activity 223 H BUN Creatinine ALT Lactate Dehydrogenase Total Protein Albumin Urine Creatinine Ur Total Protein 24 Hr Urine Total Protein 11/23/16 11/24/16 11/25/16 18:40 19:06 08:51 WBC 14.6 H RBC 2.54 L 2.48 L Hgb 8.5 L 8.6 L Hct 26.2 L 26.0 L MCV 103 H 105 H MCH 33 H 35 H RDW 17.8 H 17.5 H Plt Count 92 L 102 L Seg Neuts % (Manual) 71.0 H Lymphocytes % (Manual) 11.0 L Monocytes % (Manual) Nucleated RBC % 6.0 H 6.0 H Seg Neutrophils # Man 10.4 H Monocytes # (Manual) Factor VIII:C Activity BUN Creatinine 0.4 L ALT Lactate Dehydrogenase 389 H Total Protein Albumin Urine Creatinine Ur Total Protein 24 Hr Urine Total Protein 11/25/16 11/27/16 11/28/16 08:51 18:43 08:13 WBC 15.1 H 17.7 H 24.6 H RBC 2.52 L 2.39 L 2.39 L Hgb 8.6 L 8.2 L 8.3 L Hct 26.6 L 25.4 L 25.2 L MCV 106 H 106 H 105 H MCH 34 H 34 H 35 H RDW 18.1 H 18.5 H 18.8 H Plt Count 108 L 115 L 115 L Seg Neuts % (Manual) 77.0 H Lymphocytes % (Manual) Monocytes % (Manual) 9.0 H Nucleated RBC % 4.0 H 30.0 H Seg Neutrophils # Man 11.6 H 13.6 H Monocytes # (Manual) 1.4 H Factor VIII:C Activity BUN Creatinine ALT Lactate Dehydrogenase Total Protein Albumin Urine Creatinine Ur Total Protein 24 Hr Urine Total Protein 11/28/16 12/01/16 12/01/16 08:13 06:49 06:49 WBC 24.3 H RBC 2.38 L Hgb 8.3 L Hct 25.5 L MCV 107 H MCH 35 H RDW 18.8 H Plt Count 80 L Seg Neuts % (Manual) Lymphocytes % (Manual) Monocytes % (Manual) Nucleated RBC % Seg Neutrophils # Man Monocytes # (Manual) Factor VIII:C Activity BUN Creatinine 0.4 L 0.4 L ALT Lactate Dehydrogenase 503 H 573 H Total Protein Albumin Urine Creatinine Ur Total Protein 24 Hr Urine Total Protein Laboratory Results - last 24 hr 12/01/16 12/01/16 12/01/16 06:49 06:49 06:50 WBC 24.3 H RBC 2.38 L Hgb 8.3 L Hct 25.5 L MCV 107 H MCH 35 H MCHC 33 RDW 18.8 H Plt Count 80 L Creatinine 0.4 L Estimated GFR > 60 Uric Acid 6.3 AST 27 ALT 10 Lactate Dehydrogenase 573 H Blood Type A POSITIVE Antibody Screen Negative
[2016-12-02] MEDS ORDERED: CERVIDIL VG ONE (00:01)
[2016-12-02] MEDS: AMBIEN PO PRN (01:18)
[2016-12-02] MEDS: PRENATAL VITAMIN PO SCH (09:16)
[2016-12-02] MEDS: FEOSOL PO SCH (09:16)
[2016-12-02] MEDS: NORMODYNE PO SCH (09:17)
[2016-12-02] MEDS ORDERED: SUBLIMAZE IV SCH (10:00)
[2016-12-02] MEDS ORDERED: LACTATED RINGERS 1,500 ML IV SCH (10:00)
--- NOTE | 2016-12-02 10:03 | Progress Note ---
Assessment and Plan Pt very anxious and upset States pain is unbearable SVE 1-2,60,-2 Cervidil removed OOB for AM care P: draw platelet count, start pitocin. Re-eval as needed. Subjective - Subjective Date of service: 12/02/16 (cervidil out; will start pit ) Principal diagnosis: IUP 34w0d, CHTN w/superimposed preeclampsia, thrombocytopenia Patient reports: movement normal, other (denies KONG, visual changes or epigastric pain), no new complaints, no loss of fluid, no vaginal bleeding, no contractions Objective - Vital Signs Vital Signs: Vital Signs - 12hr 12/01/16 12/01/16 12/01/16 23:29 23:34 23:38 Temperature Pulse Rate 100 H 95 H 94 H Pulse Rate [ Right From Monitor] Respiratory Rate Blood Pressure 147/96 Blood Pressure [Right Arm] O2 Sat by Pulse 100 100 Oximetry 12/01/16 12/01/16 12/01/16 23:39 23:42 23:43 Temperature Pulse Rate 94 H 93 H 92 H Pulse Rate [ Right From Monitor] Respiratory Rate Blood Pressure 147/96 171/103 150/91 Blood Pressure [Right Arm] O2 Sat by Pulse 100 Oximetry 12/01/16 12/01/16 12/01/16 23:44 23:47 23:49 Temperature Pulse Rate 95 H 93 H 97 H Pulse Rate [ Right From Monitor] Respiratory Rate Blood Pressure 154/92 Blood Pressure [Right Arm] O2 Sat by Pulse 100 99 Oximetry 12/01/16 12/01/16 12/01/16 23:52 23:53 23:54 Temperature Pulse Rate 91 H 93 H 91 H Pulse Rate [ Right From Monitor] Respiratory Rate Blood Pressure 158/90 Blood Pressure [Right Arm] O2 Sat by Pulse 79 L 99 Oximetry 12/01/16 12/01/16 12/02/16 23:57 23:59 00:02 Temperature Pulse Rate 91 H 91 H 93 H Pulse Rate [ Right From Monitor] Respiratory Rate Blood Pressure 158/91 159/90 Blood Pressure [Right Arm] O2 Sat by Pulse 99 Oximetry 12/02/16 12/02/16 12/02/16 00:04 00:07 00:09 Temperature Pulse Rate 91 H 90 94 H Pulse Rate [ Right From Monitor] Respiratory Rate Blood Pressure 153/88 Blood Pressure [Right Arm] O2 Sat by Pulse 99 100 Oximetry 12/02/16 12/02/16 12/02/16 02:13 03:13 04:14 Temperature Pulse Rate 86 86 87 Pulse Rate [ Right From Monitor] Respiratory Rate Blood Pressure 154/82 161/91 171/78 Blood Pressure [Right Arm] O2 Sat by Pulse Oximetry 12/02/16 12/02/16 12/02/16 05:14 06:14 07:14 Temperature Pulse Rate 94 H 89 84 Pulse Rate [ Right From Monitor] Respiratory Rate Blood Pressure 149/92 170/89 199/95 Blood Pressure [Right Arm] O2 Sat by Pulse Oximetry 12/02/16 12/02/16 12/02/16 07:46 07:48 07:50 Temperature 98.2 F Pulse Rate 87 99 H Pulse Rate [ 84 Right From Monitor] Respiratory 18 Rate Blood Pressure 173/92 Blood Pressure 173/92 [Right Arm] O2 Sat by Pulse 100 100 Oximetry 12/02/16 12/02/16 12/02/16 07:55 09:17 09:20 Temperature Pulse Rate 89 84 84 Pulse Rate [ Right From Monitor] Respiratory Rate Blood Pressure 158/88 158/88 Blood Pressure [Right Arm] O2 Sat by Pulse 99 Oximetry 12/02/16 09:21 Temperature Pulse Rate 88 Pulse Rate [ Right From Monitor] Respiratory Rate Blood Pressure Blood Pressure [Right Arm] O2 Sat by Pulse 0 L Oximetry - Exam Breasts: deferred Cardiovascular: Regular rate Lungs: Normal air movement Abdomen: Present: normal appearance, soft. Absent: distention, tenderness Uterus: Present: normal FHR: auscultation normal, category 1 Uterine Contraction Monitor Mode: External Cervical Dilatation: 1.5 (cervidil removed) Cervical Effacement Percentage: 60 station: -2 Uterine Contraction Pattern: Regular Uterine Contraction Intensity: Moderate Extremities: edema Deep Tendon Reflex Grade: Normal +2 - Labs Labs: Abnormal Labs 11/18/16 11/18/16 11/19/16 05:15 05:15 08:22 WBC RBC 2.82 L 2.67 L Hgb 9.7 L 9.0 L Hct 28.4 L 27.2 L MCV 101 H 102 H MCH 34 H 34 H RDW 16.4 H 17.0 H Plt Count 86 L 80 L Seg Neuts % (Manual) Lymphocytes % (Manual) Monocytes % (Manual) Nucleated RBC % Seg Neutrophils # Man Monocytes # (Manual) Factor VIII:C Activity BUN Creatinine 0.3 L ALT Lactate Dehydrogenase 315 H Total Protein Albumin Urine Creatinine Ur Total Protein 24 Hr Urine Total Protein 11/19/16 11/20/16 11/20/16 Unknown 06:00 06:00 WBC RBC 2.59 L Hgb 8.9 L Hct 26.4 L MCV 102 H MCH 35 H RDW 16.9 H Plt Count 74 L Seg Neuts % (Manual) Lymphocytes % (Manual) Monocytes % (Manual) Nucleated RBC % Seg Neutrophils # Man Monocytes # (Manual) Factor VIII:C Activity BUN 6 L Creatinine 0.3 L ALT 5 L Lactate Dehydrogenase Total Protein 6.1 L Albumin 3.1 L Urine Creatinine 57.5 H Ur Total Protein 24 Hr 1792.00 H Urine Total Protein 64 H 11/21/16 11/21/16 11/21/16 06:49 19:40 19:40 WBC RBC Hgb Hct MCV MCH RDW Plt Count 83 L Seg Neuts % (Manual) Lymphocytes % (Manual) Monocytes % (Manual) Nucleated RBC % Seg Neutrophils # Man Monocytes # (Manual) Factor VIII:C Activity BUN Creatinine ALT 6 L Lactate Dehydrogenase 361 H Total Protein 6.2 L Albumin 3.2 L Urine Creatinine Ur Total Protein 24 Hr Urine Total Protein 11/21/16 11/21/16 11/22/16 19:40 19:40 20:05 WBC 12.0 H RBC 2.48 L 2.53 L Hgb 8.6 L 8.8 L Hct 25.4 L 26.3 L MCV 102 H 104 H MCH 35 H 35 H RDW 17.6 H 17.6 H Plt Count 87 L 91 L Seg Neuts % (Manual) Lymphocytes % (Manual) Monocytes % (Manual) 8.0 H Nucleated RBC % 6.0 H 3.0 H Seg Neutrophils # Man 8.0 H Monocytes # (Manual) 1.0 H Factor VIII:C Activity 223 H BUN Creatinine ALT Lactate Dehydrogenase Total Protein Albumin Urine Creatinine Ur Total Protein 24 Hr Urine Total Protein 11/23/16 11/24/16 11/25/16 18:40 19:06 08:51 WBC 14.6 H RBC 2.54 L 2.48 L Hgb 8.5 L 8.6 L Hct 26.2 L 26.0 L MCV 103 H 105 H MCH 33 H 35 H RDW 17.8 H 17.5 H Plt Count 92 L 102 L Seg Neuts % (Manual) 71.0 H Lymphocytes % (Manual) 11.0 L Monocytes % (Manual) Nucleated RBC % 6.0 H 6.0 H Seg Neutrophils # Man 10.4 H Monocytes # (Manual) Factor VIII:C Activity BUN Creatinine 0.4 L ALT Lactate Dehydrogenase 389 H Total Protein Albumin Urine Creatinine Ur Total Protein 24 Hr Urine Total Protein 11/25/16 11/27/16 11/28/16 08:51 18:43 08:13 WBC 15.1 H 17.7 H 24.6 H RBC 2.52 L 2.39 L 2.39 L Hgb 8.6 L 8.2 L 8.3 L Hct 26.6 L 25.4 L 25.2 L MCV 106 H 106 H 105 H MCH 34 H 34 H 35 H RDW 18.1 H 18.5 H 18.8 H Plt Count 108 L 115 L 115 L Seg Neuts % (Manual) 77.0 H Lymphocytes % (Manual) Monocytes % (Manual) 9.0 H Nucleated RBC % 4.0 H 30.0 H Seg Neutrophils # Man 11.6 H 13.6 H Monocytes # (Manual) 1.4 H Factor VIII:C Activity BUN Creatinine ALT Lactate Dehydrogenase Total Protein Albumin Urine Creatinine Ur Total Protein 24 Hr Urine Total Protein 11/28/16 12/01/16 12/01/16 08:13 06:49 06:49 WBC 24.3 H RBC 2.38 L Hgb 8.3 L Hct 25.5 L MCV 107 H MCH 35 H RDW 18.8 H Plt Count 80 L Seg Neuts % (Manual) Lymphocytes % (Manual) Monocytes % (Manual) Nucleated RBC % Seg Neutrophils # Man Monocytes # (Manual) Factor VIII:C Activity BUN Creatinine 0.4 L 0.4 L ALT Lactate Dehydrogenase 503 H 573 H Total Protein Albumin Urine Creatinine Ur Total Protein 24 Hr Urine Total Protein 12/02/16 09:28 WBC RBC Hgb Hct MCV MCH RDW Plt Count 89 L Seg Neuts % (Manual) Lymphocytes % (Manual) Monocytes % (Manual) Nucleated RBC % Seg Neutrophils # Man Monocytes # (Manual) Factor VIII:C Activity BUN Creatinine ALT Lactate Dehydrogenase Total Protein Albumin Urine Creatinine Ur Total Protein 24 Hr Urine Total Protein Laboratory Results - last 24 hr 12/01/16 12/02/16 06:50 09:28 Plt Count 89 L Blood Type A POSITIVE Antibody Screen Negative
[2016-12-02] MEDS: PITOCin/NS 30 UNIT/500ML 30 UNIT/500 ML BAG IV SCH ×3 (10:15→13:43)
[2016-12-02] MEDS ORDERED: LACTATED RINGERS 1,000 ML IV SCH (10:30)
--- NOTE | 2016-12-02 13:21 | Progress Note ---
Assessment and Plan Pt not tolerating pain well despite IV pain med. BP 170/100 Pit @ 20 SVE 1-2,40, -3 consulted. After discussion with pt and family refused c/s Subjective - Subjective Date of service: 12/02/16 (crying out; asking for section) Principal diagnosis: IUP 34w0d, CHTN w/superimposed preeclampsia, thrombocytopenia Patient reports: movement normal, other (denies KONG, visual changes or epigastric pain), no new complaints, no loss of fluid, no vaginal bleeding, no contractions Objective - Vital Signs Vital Signs: Vital Signs - 12hr 12/02/16 12/02/16 12/02/16 02:13 03:13 04:14 Temperature Pulse Rate 86 86 87 Pulse Rate [ Right From Monitor] Respiratory Rate Blood Pressure 154/82 161/91 171/78 Blood Pressure [Right Arm] O2 Sat by Pulse Oximetry 12/02/16 12/02/16 12/02/16 05:14 06:14 07:14 Temperature Pulse Rate 94 H 89 84 Pulse Rate [ Right From Monitor] Respiratory Rate Blood Pressure 149/92 170/89 199/95 Blood Pressure [Right Arm] O2 Sat by Pulse Oximetry 12/02/16 12/02/16 12/02/16 07:46 07:48 07:50 Temperature 98.2 F Pulse Rate 87 99 H Pulse Rate [ 84 Right From Monitor] Respiratory 18 Rate Blood Pressure 173/92 Blood Pressure 173/92 [Right Arm] O2 Sat by Pulse 100 100 Oximetry 12/02/16 12/02/16 12/02/16 07:55 09:17 09:20 Temperature Pulse Rate 89 84 84 Pulse Rate [ Right From Monitor] Respiratory Rate Blood Pressure 158/88 158/88 Blood Pressure [Right Arm] O2 Sat by Pulse 99 Oximetry 12/02/16 12/02/16 12/02/16 09:21 10:15 10:17 Temperature Pulse Rate 88 87 91 H Pulse Rate [ Right From Monitor] Respiratory Rate Blood Pressure 189/107 153/84 Blood Pressure [Right Arm] O2 Sat by Pulse 0 L Oximetry 12/02/16 12/02/16 12/02/16 10:47 11:18 11:48 Temperature Pulse Rate 90 91 H 91 H Pulse Rate [ Right From Monitor] Respiratory Rate Blood Pressure 163/83 164/81 170/89 Blood Pressure [Right Arm] O2 Sat by Pulse Oximetry 12/02/16 12/02/16 12/02/16 12:17 12:37 12:47 Temperature Pulse Rate 88 85 Pulse Rate [ Right From Monitor] Respiratory 20 Rate Blood Pressure 159/84 173/88 Blood Pressure [Right Arm] O2 Sat by Pulse Oximetry - Exam Breasts: deferred Cardiovascular: Normal S1 Lungs: Normal air movement Abdomen: Present: normal appearance, soft. Absent: distention, tenderness Uterus: Present: normal FHR: auscultation normal, category 1 Uterine Contraction Monitor Mode: External Cervical Dilatation: 1.5 Cervical Effacement Percentage: 40 station: -3 Uterine Contraction Pattern: Regular Uterine Contraction Intensity: Moderate Extremities: edema Deep Tendon Reflex Grade: Normal +2 - Labs Labs: Abnormal Labs 11/18/16 11/18/16 11/19/16 05:15 05:15 08:22 WBC RBC 2.82 L 2.67 L Hgb 9.7 L 9.0 L Hct 28.4 L 27.2 L MCV 101 H 102 H MCH 34 H 34 H RDW 16.4 H 17.0 H Plt Count 86 L 80 L Seg Neuts % (Manual) Lymphocytes % (Manual) Monocytes % (Manual) Nucleated RBC % Seg Neutrophils # Man Monocytes # (Manual) Factor VIII:C Activity BUN Creatinine 0.3 L ALT Lactate Dehydrogenase 315 H Total Protein Albumin Urine Creatinine Ur Total Protein 24 Hr Urine Total Protein 11/19/16 11/20/16 11/20/16 Unknown 06:00 06:00 WBC RBC 2.59 L Hgb 8.9 L Hct 26.4 L MCV 102 H MCH 35 H RDW 16.9 H Plt Count 74 L Seg Neuts % (Manual) Lymphocytes % (Manual) Monocytes % (Manual) Nucleated RBC % Seg Neutrophils # Man Monocytes # (Manual) Factor VIII:C Activity BUN 6 L Creatinine 0.3 L ALT 5 L Lactate Dehydrogenase Total Protein 6.1 L Albumin 3.1 L Urine Creatinine 57.5 H Ur Total Protein 24 Hr 1792.00 H Urine Total Protein 64 H 11/21/16 11/21/16 11/21/16 06:49 19:40 19:40 WBC RBC Hgb Hct MCV MCH RDW Plt Count 83 L Seg Neuts % (Manual) Lymphocytes % (Manual) Monocytes % (Manual) Nucleated RBC % Seg Neutrophils # Man Monocytes # (Manual) Factor VIII:C Activity BUN Creatinine ALT 6 L Lactate Dehydrogenase 361 H Total Protein 6.2 L Albumin 3.2 L Urine Creatinine Ur Total Protein 24 Hr Urine Total Protein 11/21/16 11/21/16 11/22/16 19:40 19:40 20:05 WBC 12.0 H RBC 2.48 L 2.53 L Hgb 8.6 L 8.8 L Hct 25.4 L 26.3 L MCV 102 H 104 H MCH 35 H 35 H RDW 17.6 H 17.6 H Plt Count 87 L 91 L Seg Neuts % (Manual) Lymphocytes % (Manual) Monocytes % (Manual) 8.0 H Nucleated RBC % 6.0 H 3.0 H Seg Neutrophils # Man 8.0 H Monocytes # (Manual) 1.0 H Factor VIII:C Activity 223 H BUN Creatinine ALT Lactate Dehydrogenase Total Protein Albumin Urine Creatinine Ur Total Protein 24 Hr Urine Total Protein 11/23/16 11/24/16 11/25/16 18:40 19:06 08:51 WBC 14.6 H RBC 2.54 L 2.48 L Hgb 8.5 L 8.6 L Hct 26.2 L 26.0 L MCV 103 H 105 H MCH 33 H 35 H RDW 17.8 H 17.5 H Plt Count 92 L 102 L Seg Neuts % (Manual) 71.0 H Lymphocytes % (Manual) 11.0 L Monocytes % (Manual) Nucleated RBC % 6.0 H 6.0 H Seg Neutrophils # Man 10.4 H Monocytes # (Manual) Factor VIII:C Activity BUN Creatinine 0.4 L ALT Lactate Dehydrogenase 389 H Total Protein Albumin Urine Creatinine Ur Total Protein 24 Hr Urine Total Protein 11/25/16 11/27/16 11/28/16 08:51 18:43 08:13 WBC 15.1 H 17.7 H 24.6 H RBC 2.52 L 2.39 L 2.39 L Hgb 8.6 L 8.2 L 8.3 L Hct 26.6 L 25.4 L 25.2 L MCV 106 H 106 H 105 H MCH 34 H 34 H 35 H RDW 18.1 H 18.5 H 18.8 H Plt Count 108 L 115 L 115 L Seg Neuts % (Manual) 77.0 H Lymphocytes % (Manual) Monocytes % (Manual) 9.0 H Nucleated RBC % 4.0 H 30.0 H Seg Neutrophils # Man 11.6 H 13.6 H Monocytes # (Manual) 1.4 H Factor VIII:C Activity BUN Creatinine ALT Lactate Dehydrogenase Total Protein Albumin Urine Creatinine Ur Total Protein 24 Hr Urine Total Protein 11/28/16 12/01/16 12/01/16 08:13 06:49 06:49 WBC 24.3 H RBC 2.38 L Hgb 8.3 L Hct 25.5 L MCV 107 H MCH 35 H RDW 18.8 H Plt Count 80 L Seg Neuts % (Manual) Lymphocytes % (Manual) Monocytes % (Manual) Nucleated RBC % Seg Neutrophils # Man Monocytes # (Manual) Factor VIII:C Activity BUN Creatinine 0.4 L 0.4 L ALT Lactate Dehydrogenase 503 H 573 H Total Protein Albumin Urine Creatinine Ur Total Protein 24 Hr Urine Total Protein 12/02/16 09:28 WBC RBC Hgb Hct MCV MCH RDW Plt Count 89 L Seg Neuts % (Manual) Lymphocytes % (Manual) Monocytes % (Manual) Nucleated RBC % Seg Neutrophils # Man Monocytes # (Manual) Factor VIII:C Activity BUN Creatinine ALT Lactate Dehydrogenase Total Protein Albumin Urine Creatinine Ur Total Protein 24 Hr Urine Total Protein Laboratory Results - last 24 hr 12/01/16 12/02/16 06:50 09:28 Plt Count 89 L Blood Type A POSITIVE Antibody Screen Negative
[2016-12-02] MEDS ORDERED: PEPCID IV SCH (14:02)
[2016-12-02] MEDS ORDERED: REGLAN IV SCH (14:02)
[2016-12-02] MEDS ORDERED: PITOCin/NS 20 UNIT/1000ML DRIP 20,000 MILLIUNITS/1,000 ML BAG IV ONE ×2 (14:02→20:19)
--- NOTE | 2016-12-02 14:18 | Event Note ---
Date: 12/02/16 Discussed with patient and family indications for operative delivery. Questions answered.Patient informed the risks of the surgery include bleeding possibly bleeding heavy enough to require blood transfusion, infection possible damage to bowel bladder ureter. All questions answered. Patient agrees to proceed. Patient desires permanent sterilization. She declined temporary contraceptives. She understands the risks of the surgery include bleeding infection possible damage to bowel bladder or ureters. She understands that this surgery would make her permanently sterile. She also understands the approximate 1% failure rate. The patient understands all the above and desires to proceed. Patient's and son present doing preoperative counseling and all their questions were answered. We'll move to primary section with bilateral tubal ligation. Patient being placed under general anesthesia due to her thrombocytopenia
[2016-12-02] MEDS ORDERED: ANCEF/STERILE WATER 2 GM/20 ML IV ONE (14:30)
[2016-12-02] MEDS ORDERED: DIPRIVAN 10 MG/ML IV ONE (14:41)
[2016-12-02] MEDS ORDERED: QUELICIN ONE (14:42)
[2016-12-02] MEDS ORDERED: XYLOCAINE MPF 2% ONE (14:44)
[2016-12-02] MEDS ORDERED: ZOFRAN ONE (14:46)
[2016-12-02] MEDS ORDERED: WATER FOR IRRIG STERILE IR ONE (14:48)
[2016-12-02] MEDS ORDERED: NACL 0.9% 500 ML 500 ML IV ONE (14:48)
[2016-12-02] MEDS ORDERED: NACL 0.9% IR ONE (14:48)
[2016-12-02] MEDS ORDERED: DILAUDID ONE ×2 (14:49→15:00)
[2016-12-02] MEDS ORDERED: MAGNESIUM SULFATE 4GM/100ML 4 GM/100 ML BAG IV ONE (15:00)
[2016-12-02] MEDS ORDERED: ANCEF/STERILE WATER 2 GM/20 ML 2 GM/20 ML SYRINGE IV NR (15:00)
[2016-12-02] MEDS ORDERED: MAGNESIUM SULFATE 40GM/1000ML 40 GM/1,000 ML BAG IV SCH (15:00)
[2016-12-02] MEDS ORDERED: BICITRA PO SCH (15:00)
[2016-12-02] MEDS ORDERED: LACTATED RINGERS 1,000 ML IV NR (15:00)
[2016-12-02] MEDS ORDERED: PITOCin 20 UNIT in NACL 0.9% 1000 ML 1,000 ML IV SCH (15:00)
[2016-12-02] MEDS ORDERED: NARCAN 0.4 MG/1 ML IV PRN ×2 (15:43→21:32)
--- NOTE | 2016-12-02 15:49 | Post Anesthesia Evaluation ---
- Post Anesthesia Evaluation Patient Participated: Yes Airway Patent: Yes Stable Respiratory Function: Yes Nausea/Vomiting: No Temp > 96.8F: Yes Pain Manageable: Yes Adequeate Hydration: Yes Anesthesia Complications: No Block Receding Appropriately: Not Applicable Patient on Ventilator: No
--- NOTE | 2016-12-02 15:50 | Anesthesia Consultation ---
Anesthesia Consult and Med Hx Date of service: 12/02/16 - Airway Anesthetic Teeth Evaluation: Good ROM Head & Neck: Adequate Mental/Hyoid Distance: Adequate Mallampati Class: Class II Intubation Access Assessment: Probably Good - Pulmonary Exam CTA: Yes - Cardiac Exam Cardiac Exam: RRR - Pre-Operative Health Status ASA Pre-Surgery Classification: ASA3 Proposed Anesthetic Plan: General - Pulmonary Hx Asthma: No COPD: No Hx Pneumonia: No - Cardiovascular System Hx Hypertension: Yes (CHTN with superimposed pre-eclampsia) Hx Coronary Artery Disease: No - Central Nervous System Hx Seizures: No Hx Psychiatric Problems: No - Endocrine Hx Renal Disease: No Hx End Stage Renal Disease: No Hx Hypothyroidism: No Hx Hyperthyroidism: No - Hematic Hx Anemia: Yes (thrombocytopenia) Hx Sickle Cell Disease: No - Other Systems Hx Alcohol Use: No Hx Obesity: Yes - Additional Comments Anesthesia Medical History Comments: patient with elevated pressures, platelets 89k, unable to get spinal. Plan for general anesthesia.
--- NOTE | 2016-12-02 15:51 | Anesthesia Day of Surgery ---
Anesthesia Day of Surgery - Day of Surgery Patient Examined: Yes Patient H&P Reviewed: Yes Patient is NPO: Yes Beta Blockers: Yes
[2016-12-02] MEDS: MORPHINE IV PRN ×2 (15:59→17:14)
[2016-12-02] MEDS ORDERED: DILAUDID PCA 6MG/30ML IV SCH (16:00)
[2016-12-02] MEDS ORDERED: NORMODYNE IV ONE ×3 (16:00→22:00)
--- NOTE | 2016-12-02 16:01 | Operative Report ---
Operative Report Operative Report: Date of procedure: 12/02/2016 Pre-operative diagnosis: Intrauterine at 34 weeks with chronic hypertension superimposed preeclampsia, thrombocytopenia, failed labor induction and desires permanent sterilization Post-operative diagnosis: Same Procedure name(s): Primary low transverse section with bilateral tubal ligation modified Lynn type Surgeon: Paolo Cronin MD Displayer: Leida Fortune certified nurse clinic charge nurse Anesthesia: Gen. EBL: 800 mL Complications: None Findings: At male infant Apgars 6 at 1 minute 8 at 5 minutes weight 4 lbs. 7 oz. Specimen(s): Portion of the right and left fallopian tubes and placenta Procedure: The patient was brought to the operating room. A spinal was placed without any complications. She was then placed in left lateral tilt. Prepped and draped in the usual sterile manner. After testing for adequate anesthesia level, a Pfannenstiel incision was made. This incision was taken down to the fascia. The fascia was then nicked in the midline. This incision was extended out laterally with Bourne scissors. The fascia was then sharply and bluntly from the underlying rectus muscles. The rectus muscles were bluntly and sharply . The peritoneum was then entered with the electric scoop operator's fingers. This incision was spread vertically with care not to damage the bladder below. The bladder flap was then formed sharply and bluntly with Metzenbaum scissors. Bladder blade was placed. A transverse incision was made in lower uterine segment. This incision was extended laterally with the operators fingers. The amniotic sac was then entered bluntly with the electric scoop operator' s fingers. The was delivered from the vertex position. Bulb suction on the mother's abdomen. Cord was double clamped and cut. The infant was then passed to the nursery personnel who were in attendance. The above scores were given by the nursery personnel. The placenta was then bluntly removed. The uterus was then externalized and wiped clean the remaining products. The uterine incision was closed in layers. The first incision was closed in a locking manner using 0 Vicryl. This was followed by imbricating stitch also with 0 Vicryl. This closure was hemostatic. Attention was switched to the patient's fallopian tubes, starting with the patient right tube was identified by the fimbriated end grabbed with the Wolverine approximately 2 cm from the cornea lifted and double ligated with 0 plain suture. The loop of tube was then cut away with Metzenbaum scissors. The tubal stump was then hemostatic after cauterization. The same procedure was performed on the patient's left. Attention was then switched back to the uterine incision was found to be hemostatic. The bladder flap was copiously irrigated and found to be hemostatic. The pelvis was copiously irrigated and found to be hemostatic. The uterus was then placed back to the patient's abdomen. Tubal stumps were then inspected and found to be hemostatic. The retractors were removed. The rectus muscles were inspected and found to be hemostatic. The fascia was then closed in a running manner using 0 Vicryl. This incision was hemostatic irrigation Bovie. The skin was reapproximated with 4-0 Vicryl subcuticularly. The patient tolerated procedure well. Her urine was clear. The was admitted to the intensive care nursery. The patient was accompanied to recovery room in good condition. Instrument count correct 3.
[2016-12-02] MEDS ORDERED: MORPHINE PCA 30MG/30ML IV SCH (17:00)
[2016-12-02] MEDS: TORADOL IV PRN (20:16)
[2016-12-02] MEDS ORDERED: TUCKS PAD TP PRN (21:32)
[2016-12-02] MEDS ORDERED: SODIUM CHLORIDE FLUSH SYRINGE 10 ML IV SCH (21:32)
[2016-12-02] MEDS ORDERED: LANSINOH TP PRN (21:32)
[2016-12-02] MEDS ORDERED: PITOCin/NS 20 UNIT/1000ML DRIP 20,000 MILLIUNITS/1,000 ML BAG IV SCH (21:32)
[2016-12-02] MEDS ORDERED: NORMODYNE PO SCH (22:00)
--- NOTE | 2016-12-02 22:07 | Consultation ---
History of Present Illness - Reason for Consult Consult date: 12/02/16 - History of Present Illness Events of the last 24hrs reviewed, case discussed , labs reviewed since latest PLT transfusion. Patient is s/p after a failed induced labor. She had permanent sterilization done. She was surgerised due to 34 weeks gestation/HTN, preeclampsi and thrombocytopenia/anemia.Latest PLT is 89,000 Medications and Allergies Allergies Allergy/AdvReac Type Severity Reaction Status Date / Time No Known Allergies Allergy Verified 11/21/16 06:18 Home Medications Medication Instructions Recorded Confirmed Last Taken Type Vit-Fe Fumar-FA [ 1 tab PO QDAY 10/25/16 11/20/16 11/17/16 12: 00 History Vitamin] 1 tab Ferrous Sulfate [Feosol 325 MG tab] 325 mg PO BID #60 tablet 12/02/16 Unknown Rx Ibuprofen [Motrin 800 MG tab] 800 mg PO Q6H PRN #30 tablet 12/02/16 Unknown Rx oxyCODONE /ACETAMINOPHEN [Percocet 1 - 2 tab PO Q4H PRN #30 tablet 12/02/16 Unknown Rx 5/325 mg] Active Meds: Active Medications Ferrous Sulfate (Feosol) 325 mg PO QDAY OLIVIER Last Admin: 12/02/16 09:16 Dose: 325 mg Magnesium Sulfate (Magnesium Sulfate 40gm/1000ml) 40 gm in 1,000 mls @ 50 mls/ hr IV DIRECT OLIVIER PRN Reason: 2 GM/HR Last Admin: 12/02/16 16:35 Dose: 2 gm/hr, 50 mls/hr Oxytocin/Sodium Chloride (Pitocin/Ns 20 Unit/1000ml Drip) 20,000 milliunits in 1,000 mls @ 250 mls/hr IV DIRECT OLIVIER Ketorolac Tromethamine (Toradol) 30 mg IV Q6H PRN PRN Reason: Pain, Moderate (4-6) Stop: 12/07/16 19:46 Last Admin: 12/02/16 20:16 Dose: 30 mg Labetalol HCl (Normodyne) 300 mg PO BID OLIVIER Morphine Sulfate (Morphine) 4 mg IV Q10MIN PRN PRN Reason: Pain , Severe (7-10) Stop: 12/03/16 06:00 Last Admin: 12/02/16 17:14 Dose: 4 mg Morphine Sulfate (Morphine Roll Forming Supervisor 30mg/30ml) 0 mg IV DIRECT OLIVIER PRN Reason: Protocol Last Admin: 12/02/16 16:41 Dose: 1.5 mg Multi-Ingredient Ointment (Lansinoh) 1 applic TP PRN PRN PRN Reason: dryness/cracking Multivitamins/Iron/Calcium ( Vitamin) 1 each PO QDAY [facility] Last Admin: 12/02/16 09:16 Dose: 1 each Naloxone HCl (Narcan 0.4 Mg/1 Ml) 0.1 mg IV Q2MIN PRN PRN Reason: Res Rate </= 8 or 02 SAT < 92% Sodium Chloride (Sodium Chloride Flush Syringe 10 Ml) 10 ml IV PRN [facility] Witch Constance/Glycerin (Tucks Pad) 1 each TP PRN PRN PRN Reason: Hemorrhoids/cleansing/soothing Exam - Constitutional Vitals: Temp Pulse Resp BP Pulse Ox 97.8 F 78 20 128/98 100 12/02/16 15:39 12/02/16 21:27 12/02/16 20:16 12/02/16 21:27 12/02/16 21:23 Results - Labs CBC & Chem 7: 12/02/16 09:28 12/01/16 06:49 Labs: Abnormal lab results 12/01/16 12/02/16 12/02/16 Range/Units 06:50 09:28 18:21 Plt Count 89 L (140-440) K/mm3 Magnesium 4.0 H (1.7-2.3) mg/dL Crossmatch See Detail Assessment and Plan - Patient Problems (1) Thrombocytopenia complicating Current Visit: Yes Status: Acute Plan to address problem: This may be part of pre eclampsia., see some lab order. If needed, ie PLT less or equal to 20,000, or symptomatic. Awaiting new lab results. so far, PLT improved a bit. SEE note above. PLT continues to improve. Next lab draw is tomorrow as per OB team follow [place] [id number]. (2) Leukocytosis Current Visit: Yes Status: Acute Qualifiers: Leukocytosis type: other Qualified Code(s): D72.828 - Other elevated white blood cell count Plan to address problem: This is due to steroids. (3) Labor, failed, induction Current Visit: Yes Status: Acute Qualifiers: Failed induction of labor type: F Plan to address problem: Followed by ,
[2016-12-03] MEDS: TORADOL IV PRN ×3 (02:00→18:08)
[2016-12-03 03:40] LABS: Hematocrit 20.2 % (30.3-42.9); Hemoglobin 6.5 gm/dl (10.1-14.3)
--- NOTE | 2016-12-03 07:38 | Progress Note ---
Assessment and Plan - Patient Problems (1) delivery delivered Onset Date: ~12/02/16 Current Visit: Yes Status: Acute Plan to address problem: Continue pathway. Remove dressing this AM. Advance diet as tolerated. (2) Anemia Onset Date: Unknown Current Visit: Yes Status: Chronic Qualifiers: Anemia type: iron deficiency Iron deficiency anemia type: I Vitamin B12 deficiency anemia type: V Folate deficiency anemia type: F Bone marrow failure anemia type: B Hemolytic anemia type: H Other causes of anemia: O Qualified Code(s): D50.9 - Iron deficiency anemia, unspecified Plan to address problem: Consulted with after seeing pt and review of VS and H&H 04/03 Decision to transfuse 3 units PRC. PO iron added to medications (3) Pre-eclampsia superimposed on chronic hypertension, Onset Date: ~12/02/16 Current Visit: Yes Status: Acute Plan to address problem: Complete MGSO4 @1gm/hr, scheduled to be completed @ 1600. Monitor I&O. Adequate output @ time of rounds, DTRs 2+ BP 130-120/80 since midnight Will decrease Labetalol to 200mg po BID. consulted for POC and orders. Subjective - Subjective Date of service: 12/03/16 (pt c/o back pain denies KONG, blurred vision, chest pain) Principal diagnosis: Day #1 s/p sect CHTN w/superimposed preeclampsia, thrombocytopenia Patient reports: voiding normally (weller draining clear yellow urine) Nerinx: in NICU (doing well) Objective - Vital Signs Latest vital signs: Vital Signs Temp Pulse Pulse Resp BP BP Pulse Ox 12/03/16 06:00 16 12/03/16 05:40 79 18 127/86 12/03/16 04:00 98.4 F 66 18 139/88 12/03/16 02:00 76 18 131/89 12/03/16 00:13 98 F 70 18 113/84 12/03/16 00:00 18 12/02/16 22:05 97.6 F 66 66 16 80/50 80/50 12/02/16 21:27 78 128/98 12/02/16 21:23 74 100 12/02/16 21:19 83 125/97 12/02/16 21:18 85 99 12/02/16 21:13 83 98 02/18/17 21:08 86 98 02/18/17 21:03 73 97 02/18/17 20:58 73 98 0218/17 20:53 76 99 0218/17 20:48 73 137/88 99 0218/17 20:43 73 98 0218/17 20:38 84 98 0218/17 20:33 71 144/93 99 02/18/17 20:28 74 98 0218/17 20:23 71 133/91 100 0218/17 20:18 87 141/95 99 0218/17 20:16 20 0218/17 20:13 79 98 0218/17 20:08 77 136/96 98 0218/17 20:03 76 134/89 0218/17 19:48 68 132/85 0218/17 19:33 74 122/79 0218/17 19:22 76 117/71 0218/17 19:18 82 121/85 18/17 19:09 88 96 0218/17 19:06 80 91 0218/17 19:04 88 95 0218/17 19:03 77 149/98 0218/17 18:59 80 91 0218/17 18:56 76 93 0218/17 18:54 82 98 0218/17 18:49 78 95 0218/17 18:48 84 162/109 93 0218/17 18:44 79 95 0218/17 18:41 74 94 0218/17 18:39 81 97 0218/17 18:33 79 158/95 0218/17 18:19 71 L 0218/17 18:18 79 155/105 0218/17 18:17 76 100 0218/17 18:12 75 100 0218/17 18:08 83 0 L 0218/17 18:07 73 100 0218/17 18:04 76 169/107 0218/17 18:02 82 0 L 0218/17 17:15 85 10 L 173/113 0218/17 17:00 72 10 L 165/101 0218/17 16:45 80 10 L 178/105 0218/17 16:30 76 10 L 175/105 0218/17 16:15 80 12 180/107 0218/17 16:04 83 182/113 12/02/16 16:00 82 12 186/113 12/02/16 15:55 83 14 182/113 12/02/16 15:50 84 12 193/117 12/02/16 15:45 91 H 1 L 119/115 12/02/16 15:39 97.8 F 83 12 193/117 12/02/16 14:18 83 203/112 12/02/16 13:47 85 197/110 12/02/16 13:41 82 171/111 12/02/16 13:32 85 172/108 12/02/16 13:18 86 173/106 12/02/16 12:47 85 173/88 12/02/16 12:37 20 12/02/16 12:17 88 159/84 12/02/16 11:48 91 H 170/89 12/02/16 11:18 91 H 164/81 12/02/16 10:47 90 163/83 12/02/16 10:17 91 H 153/84 12/02/16 10:15 87 189/107 12/02/16 09:21 88 0 L 12/02/16 09:20 84 158/88 12/02/16 09:17 84 158/88 12/02/16 07:55 89 99 12/02/16 07:50 99 H 100 12/02/16 07:48 87 173/92 12/02/16 07:46 98.2 F 84 18 173/92 100 Intake and Output 12/02/16 12/03/16 12/03/16 22:59 06:59 14:59 Intake Total 1000 1000 Output Total 1200 1000 Balance -200 0 Intake: IV 1000 1000 MAGNESIUM SULFATE 40GM/ 200 1000ML 40 gm In 1,000 ml @ 2 GM/HR 50 mls/hr IV DIRECT OLIVIER Rx#:[id number] PITOCin/NS 20 UNIT/1000ML 800 DRIP 20,000 milliunits In 1,000 ml @ 250 mls/hr IV DIRECT OLIVIER Rx#: [id number] Output: Urine 1200 1000 Indwelling Catheter 1000 Other: Total, Output Amount 500 Estimated Blood Loss 800 - Exam Breasts: Present: normal Cardiovascular: Present: Regular rate Lungs: Present: Normal air movement Abdomen: Present: normal appearance, soft, normal bowel sounds Uterus: Present: normal, fundal height below umbilicus Extremities: Present: edema Deep Tendon Reflex Grade: Normal +2 Incision: Present: dry, intact, dressed - Labs Labs: Abnormal lab results 12/01/16 12/02/16 12/02/16 Range/Units 06:50 09:28 18:21 Hgb (10.1-14.3) gm/dl Hct (30.3-42.9) % Plt Count 89 L (140-440) K/mm3 Magnesium 4.0 H (1.7-2.3) mg/dL Crossmatch See Detail 12/03/16 12/03/16 Range/Units 00:13 03:29 Hgb 6.5 L (10.1-14.3) gm/dl Hct 20.2 L (30.3-42.9) % Plt Count (140-440) K/mm3 Magnesium 4.6 H (1.7-2.3) mg/dL Crossmatch
[2016-12-03] MEDS ORDERED: NACL 0.9% 500 ML 500 ML IV NR (08:00)
--- NOTE | 2016-12-03 09:31 | Progress Note ---
Subjective Date of service: 12/03/16 Principal diagnosis: Day #1 s/p sect CHTN w/superimposed preeclampsia, thrombocytopenia Interval history: Patient is doing well. No anesthetic related complaints. Objective - Constitutional Vitals: Vital Signs - 12hr 12/02/16 12/03/16 12/03/16 22:05 00:00 00:13 Temperature 97.6 F 98 F Pulse Rate 66 Pulse Rate [ 66 70 Right From Monitor] Respiratory 16 18 18 Rate Blood Pressure 80/50 Blood Pressure 80/50 113/84 [Right Arm] 12/03/16 12/03/16 12/03/16 02:00 04:00 05:40 Temperature 98.4 F Pulse Rate Pulse Rate [ 76 66 79 Right From Monitor] Respiratory 18 18 18 Rate Blood Pressure Blood Pressure 131/89 139/88 127/86 [Right Arm] 12/03/16 12/03/16 12/03/16 06:00 07:50 08:00 Temperature 98.1 F Pulse Rate Pulse Rate [ 80 Right From Monitor] Respiratory 16 18 18 Rate Blood Pressure Blood Pressure 148/90 [Right Arm] - Labs CBC & Chem 7: 12/03/16 03:29 12/01/16 06:49 Labs: Abnormal lab results 12/01/16 12/02/16 12/02/16 Range/Units 06:50 09:28 18:21 Hgb (10.1-14.3) gm/dl Hct (30.3-42.9) % Plt Count 89 L (140-440) K/mm3 Magnesium 4.0 H (1.7-2.3) mg/dL Crossmatch See Detail 12/03/16 12/03/16 12/03/16 Range/Units 00:13 03:29 07:52 Hgb 6.5 L (10.1-14.3) gm/dl Hct 20.2 L (30.3-42.9) % Plt Count (140-440) K/mm3 Magnesium 4.6 H 4.3 H (1.7-2.3) mg/dL Crossmatch
[2016-12-03] MEDS: PRENATAL VITAMIN PO SCH (09:58)
[2016-12-03] MEDS: FEOSOL PO SCH ×2 (09:59→22:15)
[2016-12-03] MEDS ORDERED: NORMODYNE PO SCH (10:00)
[2016-12-03] MEDS: NORMODYNE PO SCH (22:15)
--- NOTE | 2016-12-03 22:49 | Consultation ---
History of Present Illness - Reason for Consult Consult date: 12/03/16 - History of Present Illness Patient seen/examined at mother/baby, resting in bed. labs reviewed, blood transfusion in progress, total of 3 units. HGB had dropped almost 2.5 gms, mostly from blood loss during her surgery-800cc.PLT count 48hrs ago is at 89, 000. Medications and Allergies Allergies Allergy/AdvReac Type Severity Reaction Status Date / Time No Known Allergies Allergy Verified 11/21/16 06:18 Home Medications Medication Instructions Recorded Confirmed Last Taken Type Vit-Fe Fumar-FA [ 1 tab PO QDAY 10/25/16 11/20/16 11/17/16 12: 00 History Vitamin] 1 tab Ferrous Sulfate [Feosol 325 MG tab] 325 mg PO BID #60 tablet 12/02/16 Unknown Rx Ibuprofen [Motrin 800 MG tab] 800 mg PO Q6H PRN #30 tablet 12/02/16 Unknown Rx oxyCODONE /ACETAMINOPHEN [Percocet 1 - 2 tab PO Q4H PRN #30 tablet 12/02/16 Unknown Rx 5/325 mg] Active Meds: Active Medications Ferrous Sulfate (Feosol) 325 mg PO BID [facility] Last Admin: 12/03/16 22:15 Dose: 325 mg Magnesium Sulfate (Magnesium Sulfate 40gm/1000ml) 40 gm in 1,000 mls @ 50 mls/ hr IV DIRECT [facility] PRN Reason: 2 GM/HR Last Admin: 12/02/16 16:35 Dose: 2 gm/hr, 50 mls/hr Oxytocin/Sodium Chloride (Pitocin/Ns 20 Unit/1000ml Drip) 20,000 milliunits in 1,000 mls @ 250 mls/hr IV DIRECT [facility] Last Admin: 12/03/16 06:15 Dose: 100 mls/hr Ketorolac Tromethamine (Toradol) 30 mg IV Q6H PRN PRN Reason: Pain, Moderate (4-6) Stop: 12/07/16 19:46 Last Admin: 12/03/16 18:08 Dose: 30 mg Labetalol HCl (Normodyne) 300 mg PO BID [facility] Last Admin: 12/03/16 22:15 Dose: 300 mg Morphine Sulfate (Morphine Special Education Science Teacher 30mg/30ml) 0 mg IV DIRECT [facility] PRN Reason: Protocol Last Admin: 12/02/16 16:41 Dose: 1.5 mg Multi-Ingredient Ointment (Lansinoh) 1 applic TP PRN PRN PRN Reason: dryness/cracking Multivitamins/Iron/Calcium ( Vitamin) 1 each PO QDAY [facility] Last Admin: 12/03/16 09:58 Dose: 1 each Naloxone HCl (Narcan 0.4 Mg/1 Ml) 0.1 mg IV Q2MIN PRN PRN Reason: Res Rate </= 8 or 02 SAT < 92% Sodium Chloride (Sodium Chloride Flush Syringe 10 Ml) 10 ml IV PRN [facility] Witch Constance/Glycerin (Tucks Pad) 1 each TP PRN PRN PRN Reason: Hemorrhoids/cleansing/soothing Review of Systems Constitutional: fatigue Breasts: deferred Exam - Constitutional Vitals: Temp Pulse Resp BP Pulse Ox 98.2 F 72 20 146/88 100 12/03/16 19:24 12/03/16 22:15 12/03/16 19:24 12/03/16 22:15 12/02/16 21:23 General appearance: Present: mild distress, well-nourished - EENT Eyes: Present: PERRL ENT: hearing intact, clear oral mucosa - Neck Neck: Present: supple, normal ROM - Respiratory Respiratory effort: normal Respiratory: bilateral: CTA - Cardiovascular Heart Sounds: Present: S1 & S2. Absent: rub, click - Extremities Extremities: pulses symmetrical, No edema Peripheral Pulses: within normal limits - Abdominal General gastrointestinal: Present: soft, non-tender, non-distended, normal bowel sounds Female genitourinary: Present: deferred - Rectal Rectal Exam: deferred - Integumentary Integumentary: Present: clear, warm, dry - Musculoskeletal Musculoskeletal: gait normal, strength equal bilaterally - Psychiatric Psychiatric: appropriate mood/affect, intact judgment & insight - Neurologic Neurologic: CNII-XII intact, moves all extremities Results - Labs CBC & Chem 7: 12/03/16 03:29 12/01/16 06:49 Labs: Abnormal lab results 12/01/16 12/03/16 12/03/16 Range/Units 06:50 00:13 03:29 Hgb 6.5 L (10.1-14.3) gm/dl Hct 20.2 L (30.3-42.9) % Magnesium 4.6 H (1.7-2.3) mg/dL Crossmatch See Detail 12/03/16 Range/Units 07:52 Hgb (10.1-14.3) gm/dl Hct (30.3-42.9) % Magnesium 4.3 H (1.7-2.3) mg/dL Crossmatch Assessment and Plan - Patient Problems (1) Thrombocytopenia complicating Current Visit: Yes Status: Acute Plan to address problem: This may be part of pre eclampsia., see some lab order. If needed, ie PLT less or equal to 20,000, or symptomatic. Awaiting new lab results. so far, PLT improved a bit. SEE note above. PLT continues to improve. Next lab draw is tomorrow as per OB team follow lab draws [place] [id number]. Hgb dropped, and is getting replaced..No new plt (2) Leukocytosis Current Visit: Yes Status: Acute Qualifiers: Leukocytosis type: other Qualified Code(s): D72.828 - Other elevated white blood cell count Plan to address problem: This is due to steroids. (3) Labor, failed, induction Current Visit: Yes Status: Acute Qualifiers: Failed induction of labor type: F Plan to address problem: Followed by , patient is recovering.
[2016-12-04 00:07] LABS: Hematocrit 26.7 % (30.3-42.9); Hemoglobin 8.9 gm/dl (10.1-14.3)
[2016-12-04] MEDS: TORADOL IV PRN ×2 (00:30→13:20)
[2016-12-04] MEDS: PERCOCET 5/325 PO PRN ×2 (03:44→19:23)
[2016-12-04 09:14] LABS: Hematocrit 26.6 % (30.3-42.9); Hemoglobin 8.8 gm/dl (10.1-14.3); Mean Corpuscular HGB Conc 33 % (30-34); Mean Corpuscular Hemoglobin 34 pg (28-32); Mean Corpuscular Volume 101 fl (79-97); Red Blood Count 2.62 M/mm3 (3.65-5.03); Red Cell Distribution Width 17.2 % (13.2-15.2); White Blood Count 15.1 K/mm3 (4.5-11.0)
[2016-12-04 09:22] LABS: Platelet Count 51 K/mm3 (140-440)
--- NOTE | 2016-12-04 09:23 | Progress Note ---
Assessment and Plan - Patient Problems (1) Thrombocytopenia affecting , antepartum Current Visit: No Status: Acute (2) Pre-eclampsia superimposed on chronic hypertension, antepartum Current Visit: No Status: Acute (3) AMA (advanced maternal age) multigravida 35+ Current Visit: No Status: Acute Qualifiers: Trimester: T (4) delivery delivered Onset Date: ~12/02/16 Current Visit: Yes Status: Acute Subjective - Subjective Principal diagnosis: Day #2 s/p sect CHTN w/superimposed preeclampsia, thrombocytopenia Interval history: Now begining POD #2. Stable post transfusion of 3 u for Hct 20, with Hct now 28.7. CBC not drawn so will repeat this am so we get platelet count. BP reasonably controlled on Labetolol 200 bid at levels of 150/90 this AM. Otherwise normal post op state after a c/s. Baby doing well in the nursery, no O2 Probable d/c tomorrow--will reconsult case management re d/c planning Patient reports: appetite normal, voiding normally, pain well controlled, ambulating normally : in NICU (doing well, not latching on well) Objective - Vital Signs Latest vital signs: Vital Signs Temp Pulse Pulse Resp BP BP 12/04/16 04:00 70 20 155/89 12/04/16 03:44 16 12/04/16 00:30 18 12/03/16 22:15 72 146/88 12/03/16 19:24 98.2 F 69 20 145/85 12/03/16 18:27 98.2 F 72 20 160/90 12/03/16 17:57 98.4 F 73 20 164/88 12/03/16 17:27 98.1 F 68 18 162/94 12/03/16 16:57 98.4 F 70 20 149/91 12/03/16 16:37 98.2 F 68 18 165/97 12/03/16 16:04 98.2 F 80 18 154/96 12/03/16 15:50 98 F 72 18 154/97 12/03/16 14:50 97.9 F 70 18 145/92 12/03/16 14:20 98.1 F 70 18 141/91 12/03/16 13:55 98.1 F 72 18 126/85 12/03/16 13:50 98.1 F 72 18 126/85 12/03/16 13:20 98.3 F 68 18 124/84 12/03/16 13:05 98.0 F 78 18 145/89 12/03/16 12:59 98.3 F 77 18 160/98 12/03/16 12:30 98.2 F 71 18 138/89 12/03/16 12:00 98.1 F 74 18 121/87 12/03/16 11:50 98.1 F 74 18 121/87 12/03/16 11:30 97.8 F 72 18 130/90 12/03/16 11:00 98.2 F 74 20 161/95 12/03/16 10:45 98.1 F 79 18 159/100 12/03/16 10:30 98.2 F 73 18 141/91 12/03/16 10:25 98.2 F 77 18 153/91 12/03/16 10:20 98.2 F 71 144/92 12/03/16 09:57 155/85 12/03/16 09:44 98.3 F 74 18 154/88 Intake and Output 12/03/16 12/04/16 12/04/16 22:59 06:59 14:59 Intake Total 875 240 Output Total 3200 Balance -2325 240 Intake: IV 25 MAGNESIUM SULFATE 40GM/ 25 1000ML 40 gm In 1,000 ml @ 2 GM/HR 50 mls/hr IV DIRECT [facility] Rx#:[id number] Oral 240 240 Intake, Free Water 360 Blood Product 250 Leukoreduced Red Blood 0 Cells Unit [id number] Leukoreduced Red Blood 250 Cells Unit [id number] Output: Urine 3200 Indwelling Catheter 2150 Void 1050 Other: Total, Intake Amount 240 120 Total, Output Amount 500 Voiding Method Toilet # Voids Void 1 - Exam Breasts: Present: normal (milk begining to come down) Abdomen: Present: normal appearance, soft, normal bowel sounds Uterus: Present: firm Extremities: Present: normal Incision: Present: normal, dry, intact - Labs Labs: Abnormal lab results 12/01/16 12/03/16 Range/Units 06:50 23:19 Hgb 8.9 L (10.1-14.3) gm/dl Hct 26.7 L D (30.3-42.9) % Crossmatch See Detail
[2016-12-04] MEDS: FEOSOL PO SCH ×2 (13:14→21:59)
[2016-12-04] MEDS: NORMODYNE PO SCH ×2 (13:15→22:00)
[2016-12-04] MEDS: PRENATAL VITAMIN PO SCH (13:15)
--- NOTE | 2016-12-04 21:47 | Consultation ---
History of Present Illness - Reason for Consult Consult date: 12/04/16 - History of Present Illness Patient seen/examined early this am, resting in the bed, labs reviewed, case d/ w patient. No new complaints. Labs shows PLT dropped to 51,000 from 89,00 this weekend prior to . 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 either way, she will need Plt to improve some before d/c, or a prompt follow up in the office to recheck cbc. Medications and Allergies Allergies Allergy/AdvReac Type Severity Reaction Status Date / Time No Known Allergies Allergy Verified 11/21/16 06:18 Home Medications Medication Instructions Recorded Confirmed Last Taken Type Vit-Fe Fumar-FA [ 1 tab PO QDAY 10/25/16 11/20/16 11/17/16 12: 00 History Vitamin] 1 tab Ferrous Sulfate [Feosol 325 MG tab] 325 mg PO BID #60 tablet 12/02/16 Unknown Rx Ibuprofen [Motrin 800 MG tab] 800 mg PO Q6H PRN #30 tablet 12/02/16 Unknown Rx oxyCODONE /ACETAMINOPHEN [Percocet 1 - 2 tab PO Q4H PRN #30 tablet 12/02/16 Unknown Rx 5/325 mg] Active Meds: Active Medications Ferrous Sulfate (Feosol) 325 mg PO BID [facility] Last Admin: 12/04/16 13:14 Dose: 325 mg Magnesium Sulfate (Magnesium Sulfate 40gm/1000ml) 40 gm in 1,000 mls @ 50 mls/ hr IV DIRECT [facility] PRN Reason: 2 GM/HR Last Admin: 12/02/16 16:35 Dose: 2 gm/hr, 50 mls/hr Oxytocin/Sodium Chloride (Pitocin/Ns 20 Unit/1000ml Drip) 20,000 milliunits in 1,000 mls @ 250 mls/hr IV DIRECT [facility] Last Admin: 12/03/16 06:15 Dose: 100 mls/hr Ketorolac Tromethamine (Toradol) 30 mg IV Q6H PRN PRN Reason: Pain, Moderate (4-6) Stop: 12/07/16 19:46 Last Admin: 12/04/16 13:20 Dose: 30 mg Labetalol HCl (Normodyne) 300 mg PO BID [facility] Last Admin: 12/04/16 13:15 Dose: 300 mg Morphine Sulfate (Morphine Double Backer 30mg/30ml) 0 mg IV DIRECT [facility] PRN Reason: Protocol Last Admin: 12/02/16 16:41 Dose: 1.5 mg Multi-Ingredient Ointment (Lansinoh) 1 applic TP PRN PRN PRN Reason: dryness/cracking Multivitamins/Iron/Calcium ( Vitamin) 1 each PO QDAY [facility] Last Admin: 12/04/16 13:15 Dose: 1 each Naloxone HCl (Narcan 0.4 Mg/1 Ml) 0.1 mg IV Q2MIN PRN PRN Reason: Res Rate </= 8 or 02 SAT < 92% Oxycodone/Acetaminophen (Percocet 5/325) 2 tab PO Q4H PRN PRN Reason: Pain, Moderate (4-6) Last Admin: 12/04/16 19:23 Dose: 2 tab Sodium Chloride (Sodium Chloride Flush Syringe 10 Ml) 10 ml IV PRN [facility] Witch Constance/Glycerin (Tucks Pad) 1 each TP PRN PRN PRN Reason: Hemorrhoids/cleansing/soothing Review of Systems Breasts: deferred Exam - Constitutional Vitals: Temp Pulse Resp BP Pulse Ox 98.2 F 97 H 20 149/89 100 12/04/16 19:55 12/04/16 19:55 12/04/16 19:55 12/04/16 19:55 12/02/16 21:23 General appearance: Present: no acute distress, mild distress, well-nourished - EENT Eyes: Present: PERRL ENT: hearing intact, clear oral mucosa - Neck Neck: Present: supple, normal ROM - Respiratory Respiratory effort: normal Respiratory: bilateral: CTA - Cardiovascular Heart Sounds: Present: S1 & S2. Absent: rub, click - Extremities Extremities: pulses symmetrical, No edema Peripheral Pulses: within normal limits - Abdominal General gastrointestinal: Present: soft, non-tender, non-distended, normal bowel sounds Female genitourinary: Present: deferred - Rectal Rectal Exam: deferred - Integumentary Integumentary: Present: clear, warm, dry - Musculoskeletal Musculoskeletal: gait normal, strength equal bilaterally - Psychiatric Psychiatric: appropriate mood/affect, intact judgment & insight - Neurologic Neurologic: CNII-XII intact, moves all extremities Results - Labs CBC & Chem 7: 12/04/16 08:54 12/01/16 06:49 Labs: Abnormal lab results 12/03/16 12/04/16 Range/Units 23:19 08:54 WBC 15.1 H (4.5-11.0) K/mm3 RBC 2.62 L (3.65-5.03) M/mm3 Hgb 8.9 L 8.8 L (10.1-14.3) gm/dl Hct 26.7 L D 26.6 L (30.3-42.9) % MCV 101 H (79-97) fl MCH 34 H (28-32) pg RDW 17.2 H (13.2-15.2) % Plt Count 51 L (140-440) K/mm3 Assessment and Plan - Patient Problems (1) Thrombocytopenia complicating Current Visit: Yes Status: Acute Plan to address problem: This may be part of pre eclampsia., see some lab order. If needed, ie PLT less or equal to 20,000, or symptomatic. Awaiting new lab results. so far, PLT improved a bit. SEE note above. PLT continues to improve. Next lab draw is tomorrow as per OB team follow lab [place] [id number]. 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 (2) Leukocytosis Current Visit: Yes Status: Acute Qualifiers: Leukocytosis type: other Qualified Code(s): D72.828 - Other elevated white blood cell count Plan to address problem: This is due to steroids. improved. but may need some steroid to improve her PLT either in patient, or out patient. I have d/wthe OB attending loss prevention/safety district manager tonight. (3) Labor, failed, induction Current Visit: Yes Status: Acute Qualifiers: Failed induction of labor type: F Plan to address problem: Followed by , patient is recovering.
[2016-12-05] MEDS: PERCOCET 5/325 PO PRN ×4 (01:56→22:36)
[2016-12-05 06:33] LABS: Hematocrit 26.9 % (30.3-42.9); Hemoglobin 8.8 gm/dl (10.1-14.3); Mean Corpuscular HGB Conc 33 % (30-34); Mean Corpuscular Hemoglobin 33 pg (28-32); Mean Corpuscular Volume 102 fl (79-97); Red Blood Count 2.63 M/mm3 (3.65-5.03); Red Cell Distribution Width 19.5 % (13.2-15.2); White Blood Count 15.5 K/mm3 (4.5-11.0)
[2016-12-05 06:49] LABS: Platelet Count 72 K/mm3 (140-440)
--- NOTE | 2016-12-05 07:38 | Progress Note ---
Assessment and Plan patient sitting up, abdominal binder on. Patient c/o Incision D&I, Lochia scant , pumping breastmilk for . Denies s/s anemia. B/p varies from 123/75 to 156/98 in last 24h on labetalol 300mg PO BID, patient denies KONG, visual disturbances or epigastric pain. Improvement in platelets from 51 to 72 in 24h. Will consult Dr. Spence regarding possible d/c today . - Patient Problems (1) Hypertension affecting in third trimester Current Visit: No Status: Chronic (2) Pre-eclampsia superimposed on chronic hypertension, antepartum Current Visit: No Status: Acute Plan to address problem: denies Kong, Blurred vision or epigastric pain (3) Thrombocytopenia affecting , antepartum Current Visit: No Status: Acute Plan to address problem: plt increased from 51 yesterday to 72 today (4) 33 weeks gestation of Current Visit: No Status: Resolved (5) delivery delivered Onset Date: ~12/02/16 Current Visit: Yes Status: Acute Subjective - Subjective Date of service: 12/05/16 Principal diagnosis: Day #3 s/p sect CHTN w/superimposed preeclampsia, thrombocytopenia Patient reports: appetite normal, voiding normally, pain well controlled, flatus , bowel movement, ambulating normally, no dizzy ambulation, no nauseated [place]: in NICU (pt reports is doing well) Objective - Vital Signs Latest vital signs: Vital Signs Temp Pulse Pulse Resp BP BP BP 12/05/16 03:00 98.3 F 84 20 123/75 12/04/16 22:00 95 H 95 H 152/90 152/90 12/04/16 19:55 98.2 F 97 H 20 149/89 12/04/16 16:20 98.2 F 96 H 20 124/60 12/04/16 12:57 98.1 F 90 20 156/98 12/04/16 07:52 98.3 F 86 18 148/96 Intake and Output 12/04/16 12/05/16 12/05/16 22:59 06:59 14:59 Intake Total 300 240 Balance 300 240 Intake: Oral 180 Intake, Free Water 120 240 Other: Total, Intake Amount 180 # Voids Void 1 2 # Bowel Movements 1 - Exam Breasts: Present: normal, (pumping) Cardiovascular: Present: Regular rate Lungs: Present: Clear to auscultation Abdomen: Present: normal appearance, soft Uterus: Present: normal, firm, fundal height at umbilicus Extremities: Present: normal Incision: Present: normal, dry, intact - Labs Labs: Abnormal lab results 12/04/16 12/05/16 Range/Units 08:54 06:11 WBC 15.1 H 15.5 H (4.5-11.0) K/mm3 RBC 2.62 L 2.63 L (3.65-5.03) M/mm3 Hgb 8.8 L 8.8 L (10.1-14.3) gm/dl Hct 26.6 L 26.9 L (30.3-42.9) % MCV 101 H 102 H (79-97) fl MCH 34 H 33 H (28-32) pg RDW 17.2 H 19.5 H (13.2-15.2) % Plt Count 51 L 72 L (140-440) K/mm3
[2016-12-05] MEDS: FEOSOL PO SCH ×2 (10:28→22:39)
[2016-12-05] MEDS: NORMODYNE PO SCH ×2 (10:29→22:39)
[2016-12-05] MEDS ORDERED: MILK OF MAGNESIA PO PRN (10:35)
--- NOTE | 2016-12-05 10:40 | Progress Note ---
Assessment and Plan - Patient Problems (1) delivery delivered Onset Date: ~12/02/16 Current Visit: Yes Status: Acute Plan to address problem: POD#3. Will continue observation MOM ?D/C tomorrow (2) Pre-eclampsia superimposed on chronic hypertension, antepartum Current Visit: No Status: Acute (3) Thrombocytopenia affecting , antepartum Current Visit: No Status: Acute Plan to address problem: Dr. Alberts to determine if she needs to be d/c'd home on steroids or not (4) Leukocytosis Current Visit: Yes Status: Acute Qualifiers: Leukocytosis type: other Qualified Code(s): D72.828 - Other elevated white blood cell count (5) Smoker Current Visit: Yes Status: Acute Subjective - Subjective Date of service: 12/05/16 Principal diagnosis: Day #3 s/p sect CHTN w/superimposed preeclampsia, thrombocytopenia Interval history: complains of back/abdominal pain, she does not want to go home today b/c sje concerned about uncontrolled pain Patient reports: appetite normal, voiding normally, flatus, bowel movement ( small), no pain well controlled Objective - Vital Signs Latest vital signs: Vital Signs Temp Pulse Pulse Pulse Resp BP BP 12/05/16 10:29 89 151/89 12/05/16 07:16 98.5 F 80 20 124/74 12/05/16 03:00 98.3 F 84 20 123/75 12/04/16 22:00 95 H 95 H 152/90 152/90 12/04/16 19:55 98.2 F 97 H 20 12/04/16 16:20 98.2 F 96 H 20 12/04/16 12:57 98.1 F 90 20 BP 12/05/16 10:29 12/05/16 07:16 12/05/16 03:00 12/04/16 22:00 12/04/16 19:55 149/89 12/04/16 16:20 124/60 12/04/16 12:57 156/98 Intake and Output 12/04/16 12/05/16 12/05/16 22:59 06:59 14:59 Intake Total 300 240 120 Balance 300 240 120 Intake: Oral 180 120 Intake, Free Water 120 240 Other: Total, Intake Amount 180 120 # Voids Void 1 2 1 # Bowel Movements 1 - Exam Breasts: Present: normal. Absent: engorged Cardiovascular: Present: Regular rate Lungs: Present: Clear to auscultation, Normal air movement Abdomen: Present: normal appearance, soft, distention, normal bowel sounds Extremities: Present: edema (trace) Incision: Present: dressed (with steristrips, no s/s infection) - Labs Labs: Abnormal lab results 12/05/16 Range/Units 06:11 WBC 15.5 H (4.5-11.0) K/mm3 RBC 2.63 L (3.65-5.03) M/mm3 Hgb 8.8 L (10.1-14.3) gm/dl Hct 26.9 L (30.3-42.9) % MCV 102 H (79-97) fl MCH 33 H (28-32) pg RDW 19.5 H (13.2-15.2) % Plt Count 72 L (140-440) K/mm3
[2016-12-05] MEDS: PRENATAL VITAMIN PO SCH (10:58)
--- NOTE | 2016-12-05 22:31 | Consultation ---
History of Present Illness - Reason for Consult Consult date: 12/05/16 - History of Present Illness Patient seen this am, d/w her about her labs. PLT has improved some.No new issues at this time. Medications and Allergies Allergies Allergy/AdvReac Type Severity Reaction Status Date / Time No Known Allergies Allergy Verified 11/21/16 06:18 Home Medications Medication Instructions Recorded Confirmed Last Taken Type Vit-Fe Fumar-FA [ 1 tab PO QDAY 10/25/16 11/20/16 11/17/16 12: 00 History Vitamin] 1 tab Ferrous Sulfate [Feosol 325 MG tab] 325 mg PO BID #60 tablet 12/02/16 Unknown Rx Ibuprofen [Motrin 800 MG tab] 800 mg PO Q6H PRN #30 tablet 12/02/16 Unknown Rx oxyCODONE /ACETAMINOPHEN [Percocet 1 - 2 tab PO Q4H PRN #30 tablet 12/02/16 Unknown Rx 5/325 mg] Labetalol HCl 300 mg PO BID #60 tablet 12/05/16 Unknown Rx Active Meds: Active Medications Ferrous Sulfate (Feosol) 325 mg PO BID [facility] Last Admin: 12/05/16 10:28 Dose: 325 mg Magnesium Sulfate (Magnesium Sulfate 40gm/1000ml) 40 gm in 1,000 mls @ 50 mls/ hr IV DIRECT [facility] PRN Reason: 2 GM/HR Last Admin: 12/02/16 16:35 Dose: 2 gm/hr, 50 mls/hr Oxytocin/Sodium Chloride (Pitocin/Ns 20 Unit/1000ml Drip) 20,000 milliunits in 1,000 mls @ 250 mls/hr IV DIRECT [facility] Last Admin: 12/03/16 06:15 Dose: 100 mls/hr Ketorolac Tromethamine (Toradol) 30 mg IV Q6H PRN PRN Reason: Pain, Moderate (4-6) Stop: 12/07/16 19:46 Last Admin: 12/04/16 13:20 Dose: 30 mg Labetalol HCl (Normodyne) 300 mg PO BID [facility] Last Admin: 12/05/16 10:29 Dose: 300 mg Magnesium Hydroxide (Milk Of Magnesia) 30 ml PO QDAY PRN PRN Reason: Constipation Last Admin: 12/05/16 18:27 Dose: 30 ml Morphine Sulfate (Morphine Aircraft Fueler 30mg/30ml) 0 mg IV DIRECT [facility] PRN Reason: Protocol Last Admin: 12/02/16 16:41 Dose: 1.5 mg Multi-Ingredient Ointment (Lansinoh) 1 applic TP PRN PRN PRN Reason: dryness/cracking Multivitamins/Iron/Calcium ( Vitamin) 1 each PO QDAY [facility] Last Admin: 12/05/16 10:58 Dose: 1 each Naloxone HCl (Narcan 0.4 Mg/1 Ml) 0.1 mg IV Q2MIN PRN PRN Reason: Res Rate </= 8 or 02 SAT < 92% Oxycodone/Acetaminophen (Percocet 5/325) 2 tab PO Q4H PRN PRN Reason: Pain, Moderate (4-6) Last Admin: 12/05/16 18:32 Dose: 2 tab Sodium Chloride (Sodium Chloride Flush Syringe 10 Ml) 10 ml IV PRN [facility] Witch Constance/Glycerin (Tucks Pad) 1 each TP PRN PRN PRN Reason: Hemorrhoids/cleansing/soothing Review of Systems Breasts: deferred Exam - Constitutional Vitals: Temp Pulse Resp BP Pulse Ox 98.3 F 94 H 22 140/98 100 12/05/16 11:45 12/05/16 11:45 12/05/16 11:45 12/05/16 11:45 12/02/16 21:23 General appearance: Present: mild distress, well-nourished - EENT Eyes: Present: PERRL ENT: hearing intact, clear oral mucosa - Neck Neck: Present: supple, normal ROM - Respiratory Respiratory effort: normal Respiratory: bilateral: CTA - Cardiovascular Heart Sounds: Present: S1 & S2. Absent: rub, click - Extremities Extremities: pulses symmetrical, No edema Peripheral Pulses: within normal limits - Abdominal General gastrointestinal: Present: soft, non-tender, non-distended, normal bowel sounds Female genitourinary: Present: deferred - Rectal Rectal Exam: deferred - Integumentary Integumentary: Present: clear, warm, dry - Musculoskeletal Musculoskeletal: gait normal, strength equal bilaterally - Psychiatric Psychiatric: appropriate mood/affect, intact judgment & insight - Neurologic Neurologic: CNII-XII intact, moves all extremities Results - Labs CBC & Chem 7: 12/05/16 06:11 12/01/16 06:49 Labs: Abnormal lab results 12/05/16 Range/Units 06:11 WBC 15.5 H (4.5-11.0) K/mm3 RBC 2.63 L (3.65-5.03) M/mm3 Hgb 8.8 L (10.1-14.3) gm/dl Hct 26.9 L (30.3-42.9) % MCV 102 H (79-97) fl MCH 33 H (28-32) pg RDW 19.5 H (13.2-15.2) % Plt Count 72 L (140-440) K/mm3 Assessment and Plan - Patient Problems (1) Thrombocytopenia complicating Current Visit: Yes Status: Acute Plan to address problem: This may be part of pre eclampsia., see some lab order. If needed, ie PLT less or equal to 20,000, or symptomatic. Awaiting new lab results. so far, PLT improved a bit. SEE note above. PLT continues to improve. Next lab draw is tomorrow as per OB team follow lab [place] [id number]. 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 There is some improvement. (2) Leukocytosis Current Visit: Yes Status: Acute Qualifiers: Leukocytosis type: other Qualified Code(s): D72.828 - Other elevated white blood cell count Plan to address problem: This is due to steroids. improved. but may need some steroid to improve her PLT either in patient, or out patient. I have d/wthe OB attending operations intelligence superintendent tonight. Disposition as per the primary team. (3) Labor, failed, induction Current Visit: Yes Status: Acute Qualifiers: Failed induction of labor type: F Plan to address problem: Followed by , patient is recovering.
[2016-12-06] MEDS: PERCOCET 5/325 PO PRN ×2 (03:44→08:45)
--- NOTE | 2016-12-06 07:31 | Progress Note ---
Assessment and Plan Patient sitting up on phone talking with her brother. She reports feeling ready to go home today. She says she will be going home to her house with her family. She declines needing additional case management consult as she feels she has what she needs to care for the . She reports feeling bloated but states it is getting better as she has flatus. Lochia scant, incision d&I. Patient will f/u in our office 1 week and will call for appointment with hematology. She understands she needs to continue taking her labetalol twice a day until she has f/u and is told otherwise. All questions addressed, pt verbalizes understanding. - Patient Problems (1) Hypertension affecting in third trimester Current Visit: No Status: Chronic (2) Pre-eclampsia superimposed on chronic hypertension, antepartum Current Visit: No Status: Acute Plan to address problem: b/p mostly controlled with labetalol 300mg BID RX on chart to continue medication at discharge (3) Thrombocytopenia affecting , antepartum Current Visit: No Status: Acute Plan to address problem: Order for CBC this AM to check plt. plan to have patient f/u 1 week in our office with CBC Pt instructed to call hematology for outpatient appointment this week as per Dr. Alberts's last consult note. (4) delivery delivered Onset Date: ~12/02/16 Current Visit: Yes Status: Acute Subjective - Subjective Date of service: 12/06/16 Principal diagnosis: Day #4 s/p sect CHTN w/superimposed preeclampsia, thrombocytopenia Patient reports: appetite normal, voiding normally, pain well controlled, flatus , bowel movement, ambulating normally, no dizzy ambulation, no nauseated [place]: in NICU Objective - Vital Signs Latest vital signs: Vital Signs Temp Pulse Pulse Pulse Resp BP BP 12/06/16 06:00 97.8 F 75 18 123/75 12/06/16 03:44 18 12/05/16 22:39 98.4 F 90 90 18 144/90 144/90 12/05/16 22:36 18 12/05/16 11:45 98.3 F 94 H 22 140/98 12/05/16 10:30 89 151/89 12/05/16 10:29 89 151/89 - Exam Breasts: Present: normal, Cardiovascular: Present: Regular rate Lungs: Present: Clear to auscultation, Normal air movement Abdomen: Present: normal appearance, soft Uterus: Present: normal, firm, fundal height at umbilicus Extremities: Present: normal Deep Tendon Reflex Grade: Normal +2 Incision: Present: normal, dry, intact
--- NOTE | 2016-12-06 07:51 | Discharge Summary ---
Providers - Providers Date of Admission: 11/18/16 11:47 Date of discharge: 12/06/16 (pt requests d/c home) Attending physician: PEDRO LUIS BARNEY 11/21/16 06:26 Consult to Physician [CONS] Routine Consulting Provider: CORAZON IRIZARRY Reason For Exam: low platelet count Place consult to:: Hematology Notified:: yes Phone number called:: [phone] Was contact made?: Yes If yes, spoke with:: Jess Time called:: 06:38 11/23/16 05:38 Consult to Case Management [CONS] Routine Services Needed at Discharge: Soft Sugar Supervisor Notified:: message left on answering service @[id number] Phone number called:: [phone] Was contact made?: No If yes, spoke with:: pina Time called:: 06:03 Additional Physician Instructions: pt needs assistance in resources for her new baby 12/04/16 09:31 Consult to Case Management [CONS] Routine Services Needed at Discharge: Soft Sugar Supervisor Was contact made?: No Additional Physician Instructions: Probable discharge tomorrow, baby in NICU , patient may be homeless. Primary care physician: EVY ASHER Hospitalization Reason for admission: observation (htn superimposed pre-e, thrombocytopenia) Delivery: Procedure: bilateral tubal ligation, primary low transverse Incision: normal, dry, intact Other procedures: none complications: none Discharge diagnosis: delivery (34 weeks per AMFM recommendation) baby: female Hospital course: antepartum monitoring followed by uncomplicated c/s delivery with BTL Condition at discharge: Good Disposition: DISCHARGED TO HOME OR SELFCARE - Discharge Diagnoses (1) Hypertension affecting in third trimester Status: Chronic (2) Pre-eclampsia superimposed on chronic hypertension, antepartum Status: Acute (3) Thrombocytopenia affecting , antepartum Status: Acute (4) delivery delivered Status: Acute Plan - Discharge Medications Prescriptions: Ferrous Sulfate [Feosol 325 MG tab] 325 mg PO BID #60 tablet Ibuprofen [Motrin 800 MG tab] 800 mg PO Q6H PRN #30 tablet PRN Reason: Pain Labetalol HCl 300 mg PO BID #60 tablet oxyCODONE /ACETAMINOPHEN [Percocet 5/325 mg] 1 - 2 tab PO Q4H PRN #30 tablet PRN Reason: Pain, Moderate - Provider Discharge Summary Activity: routine, no sex for 6 weeks, no heavy lifting 4 weeks, no strenuous exercise Diet: routine Instructions: routine Additional instructions: [] Smoking cessation referral if applicable(refer to patient education folder for contact #) [] Refer to [facility]'s [facility] Booklet Call your doctor immediately for: * Fever > 100.5 * Heavy vaginal bleeding ( >1 pad per hour) * Severe persistent headache * Shortness of breath * Reddened, hot, painful area to leg or breast * Drainage or odor from incision. * Keep incision clean and dry at all times and follow doctor's instructions regarding bathing/showering - Follow up plan Follow up: EVY ASHER MD [Primary Care Provider] - 7 Days (Congratulations! Please call [phone] to schedule an appointment for your incision check and blood pressure check in 1 week. Call for any questions or concerns.) CORAZON IRIZARRY DO [Staff Physician] - 7 Days (Please call Dr. Irizarry's office for an appointment to continue outpatient care for your low platelets. )
[2016-12-06 09:40] LABS: Hematocrit 27.2 % (30.3-42.9); Hemoglobin 8.9 gm/dl (10.1-14.3); Mean Corpuscular HGB Conc 33 % (30-34); Mean Corpuscular Hemoglobin 33 pg (28-32); Mean Corpuscular Volume 102 fl (79-97); Red Blood Count 2.66 M/mm3 (3.65-5.03); White Blood Count 14.7 K/mm3 (4.5-11.0)
[2016-12-06 09:51] LABS: Platelet Count 99 K/mm3 (140-440); Red Cell Distribution Width 20.6 % (13.2-15.2)
[2016-12-06] MEDS: PRENATAL VITAMIN PO SCH (11:25)
[2016-12-06] MEDS: FEOSOL PO SCH (11:25)
[2016-12-06] MEDS: NORMODYNE PO SCH (11:25)
[2016-12-06 11:41] VITALS: BP 157/96
--- NOTE | 2016-12-06 22:32 | Event Note ---
Date: 12/06/16 patients record/labs showing improvement in PLT , supporting the etiology to be acute blood loss, rather than ITP which also appeared plausible, at that time. I have sppoken to the patient regarding follow up in the office upon d/c.
== END 2016-12-06 13:04 | disposition home or self-care (01) | DRG 765 ==
LOC: TRG 03:47 → OBSVTOIN 11:47 → LD 11:47 → OB 12-02 21:31
PROVIDERS: ADMIT Obstetrics & Gynecology; ATTEND Obstetrics & Gynecology
PROC: 30233R1 Transfusion of Nonautologous Platelets into Peripheral Vein, Percutaneous Approach (ICD-10-PCS; 2016-11-24)
PROC: 10D00Z1 Extraction of Products of Conception, Low, Open Approach (ICD-10-PCS; principal; 2016-12-02)
PROC: 0UL70ZZ Occlusion of Bilateral Fallopian Tubes, Open Approach (ICD-10-PCS; 2016-12-02)
PROC: 30233N1 Transfusion of Nonautologous Red Blood Cells into Peripheral Vein, Percutaneous Approach (ICD-10-PCS; 2016-12-03)
DX: O14.93 Unspecified pre-eclampsia, third trimester (principal); O60.14X0 Preterm labor third trimester with preterm delivery third trimester, not applicable or unspecified; O99.113 Other diseases of the blood and blood-forming organs and certain disorders involving the immune mechanism complicating pregnancy, third trimester; O12.13 Gestational proteinuria, third trimester; O09.523 Supervision of elderly multigravida, third trimester; O99.333 Smoking (tobacco) complicating pregnancy, third trimester; O75.89 Other specified complications of labor and delivery; D72.829 Elevated white blood cell count, unspecified; O99.02 Anemia complicating childbirth; O61.9 Failed induction of labor, unspecified; O99.213 Obesity complicating pregnancy, third trimester; Z37.0 Single live birth; Z68.30 Body mass index [BMI] 30.0-30.9, adult; Z3A.34 34 weeks gestation of pregnancy; Z30.2 Encounter for sterilization
CPT/HCPCS: 36415; 76815; 76816; 76819; 80053; 80074; 81001; 82565; 82570; 82607; 82747; 83615; 83735; 84156; 84450; 84460; 84550; 85007; 85014; 85018; 85025; 85027; 85049; 85240; 86850; 86900; 86901; 86920; 87086; 87116; 87210; 88302; 88307; 99211; G0463; J0330; J0690; J0702; J1170; J1885; J2270; J2310; J2405; J2590; J2704; J2765; J2920; J2930; J3010; J3475; J7040; J7120; P9016; P9035

== ENCOUNTER 2021-07-19 13:49 | Emergency (ER) | payer MEDICAID ==
--- NOTE | 2021-07-19 14:04 | Emergency Department Report ---
<DEEKYUNG MOYER Jackie - Last Filed: 07/19/21 16:26> ED Abdominal Pain HPI - General Chief Complaint: Abdominal Pain Stated Complaint: UPPER ABD PAIN PUI?: No Time Seen by Provider: 07/19/21 13:58 Source: patient Mode of arrival: Ambulatory Limitations: No Limitations - History of Present Illness Initial Comments: 41 yo comes to the ER with several week hx luq abd pain. She endorses nausea; no vomiting; no diarrhea; no fever or chills. Last normal BM last week. No cp or sob. Pt reports being seen at [place] this week- given bentayl and macrobid. She denies dysuria, back pain or vaginal discharge. She just came off her period She comes here because she is concerned that the pain is getting worse. She took a dulcolox suppository and enema this AM with no relief. She thought maybe she was constipated. Denies use of narcotics that might make her constipated She is on macrobid and bentyl per her ER visit at [place] On entering the room pt was rocking back and forth in the chair- moaning. Initially she would not answer me, then she said "if you give me a minute I will get my breath and answer you." MD Complaint: abdominal pain -: Gradual, days(s) Location: LUQ Migration to: no migration Severity: severe Quality: cramping, aching Consistency: constant Improves With: nothing Worsens With: nothing Associated Symptoms: denies other symptoms, nausea, constipation. denies: vomiting, diarrhea, fever, chills, dysuria, hematemesis, hematochezia, melena, hematuria, anorexia, syncope - Related Data LMP (females 10-50): other (just completed) Previous Rx's Medication Instructions Recorded Last Taken Type Famotidine [Pepcid] 40 mg PO QHS #30 tablet 07/19/21 Unknown Rx Sucralfate [Carafate] 1 gm PO ACHS 7 Days #21 tablet 07/19/21 Unknown Rx cephALEXin [Keflex] 500 mg PO BID 7 Days #14 cap 07/19/21 Unknown Rx Allergies Allergy/AdvReac Type Severity Reaction Status Date / Time No Known Allergies Allergy Verified 07/19/21 13:56 ED Review of Systems Comment: All other systems reviewed and negative ED Past Medical Hx - Past Medical History Previous Medical History?: Yes Hx Hypertension: Yes (HTN with superimposed pre-eclampsia) Hx CVA: No Hx Heart Attack/AMI: No Hx Congestive Heart Failure: No Hx Diabetes: No Hx Deep Vein Thrombosis: No Hx Pulmonary Embolism: No Hx GERD: No Hx Liver Disease: No Hx Renal Disease: No Hx of Cancer: No Hx Sickle Cell Disease: No Hx Arthritis: No Hx Headaches / Migraines: No Hx Seizures: No Hx Kidney Stones: No Hx Psychiatric Treatment: No Hx Asthma: No Hx COPD: No Hx Tuberculosis: No Hx Dementia: No Hx HIV: No - Surgical History Past Surgical History?: Yes Additional Surgical History: , Tubal ligation - Family History Family history: no significant - Social History Smoking Status: Never Smoker Substance Use Type: Marijuana - Medications Home Medications: Home Medications Medication Instructions Recorded Confirmed Last Taken Type Famotidine [Pepcid] 40 mg PO QHS #30 tablet 07/19/21 Unknown Rx Sucralfate [Carafate] 1 gm PO ACHS 7 Days #21 tablet 07/19/21 Unknown Rx cephALEXin [Keflex] 500 mg PO BID 7 Days #14 cap 07/19/21 Unknown Rx ED Physical Exam - General Limitations: No Limitations General appearance: alert, in no apparent distress - Head Head exam: Present: atraumatic, normocephalic - Eye Eye exam: Present: normal appearance - ENT ENT exam: Present: mucous membranes moist - Neck Neck exam: Present: normal inspection - Respiratory Respiratory exam: Present: normal lung sounds bilaterally. Absent: respiratory distress - Cardiovascular Cardiovascular Exam: Present: regular rate, normal rhythm. Absent: systolic murmur, diastolic murmur, rubs, gallop - GI/Abdominal GI/Abdominal exam: Present: soft, normal bowel sounds - Extremities Exam Extremities exam: Present: normal inspection - Back Exam Back exam: Present: normal inspection - Neurological Exam Neurological exam: Present: alert, oriented X3 - Psychiatric Psychiatric exam: Present: normal affect, normal mood - Skin Skin exam: Present: warm, dry, intact, normal color. Absent: rash ED Medical Decision Making - Lab Data Result diagrams: 07/19/21 14:07 07/19/21 14:07 - Radiology Data Radiology results: report reviewed, image reviewed - Medical Decision Making Lab Results 07/19/21 07/19/21 07/19/21 Range/Units 14:07 14:07 14:07 WBC 10.2 (4.5-11.0) K/mm3 RBC 4.03 (3.65-5.03) M/mm3 Hgb 14.2 (10.1-14.3) gm/dl Hct 40.9 (30.3-42.9) % MCV 101 H (79-97) fl MCH 35 H (28-32) pg MCHC 35 H (30-34) % RDW 13.5 (13.2-15.2) % Plt Count 213 (140-440) K/mm3 Sodium 138 (137-145) mmol/L Potassium 3.3 L (3.6-5.0) mmol/L Chloride 99.2 (98-107) mmol/L Carbon Dioxide 23 (22-30) mmol/L Anion Gap 19 mmol/L BUN 9 (7-17) mg/dL Creatinine 0.5 L (0.6-1.2) mg/dL Estimated GFR > 60 ml/min BUN/Creatinine Ratio 18 % Glucose 124 H (65-100) mg/dL Calcium 9.8 (8.4-10.2) mg/dL Total Bilirubin 0.40 (0.1-1.2) mg/dL AST 12 (5-40) units/L ALT 7 (7-56) units/L Alkaline Phosphatase 58 (35-129) units/L Total Protein 8.4 H (6.3-8.2) g/dL Albumin 4.4 (3.9-5) g/dL Albumin/Globulin Ratio 1.1 % Lipase 74 H (13-60) units/L HCG, Quant (0-4) mIU/mL Urine Color (Yellow) Urine Turbidity (Clear) Urine pH (5.0-7.0) Ur Specific [place] (1.003-1.030) Urine Protein (Negative) mg/dL Urine Glucose (UA) (Negative) mg/dL Urine Ketones (Negative) mg/dL Urine Blood (Negative) Urine Nitrite (Negative) Ur Reducing Substances Urine Bilirubin (Negative) Urine Ictotest Urine Urobilinogen (<2.0) mg/dL Ur Leukocyte Esterase (Negative) Urine WBC (Auto) (0.0-6.0) /HPF Urine RBC (Auto) (0.0-6.0) /HPF U Epithel Cells (Auto) (0-13.0) /HPF Urine Bacteria (Auto) (Negative) /HPF Urine Mucus /HPF Urine HCG, Qual (Negative) 07/19/21 07/19/21 Range/Units 15:48 Unknown WBC (4.5-11.0) K/mm3 RBC (3.65-5.03) M/mm3 Hgb (10.1-14.3) gm/dl Hct (30.3-42.9) % MCV (79-97) fl MCH (28-32) pg MCHC (30-34) % RDW (13.2-15.2) % Plt Count (140-440) K/mm3 Sodium (137-145) mmol/L Potassium (3.6-5.0) mmol/L Chloride (98-107) mmol/L Carbon Dioxide (22-30) mmol/L Anion Gap mmol/L BUN (7-17) mg/dL Creatinine (0.6-1.2) mg/dL Estimated GFR ml/min BUN/Creatinine Ratio % Glucose (65-100) mg/dL Calcium (8.4-10.2) mg/dL Total Bilirubin (0.1-1.2) mg/dL AST (5-40) units/L ALT (7-56) units/L Alkaline Phosphatase (35-129) units/L Total Protein (6.3-8.2) g/dL Albumin (3.9-5) g/dL Albumin/Globulin Ratio % Lipase (13-60) units/L HCG, Quant < 2 (0-4) mIU/mL Urine Color Yellow (Yellow) Urine Turbidity Hazy (Clear) Urine pH 5.0 (5.0-7.0) Ur Specific [place] 1.021 (1.003-1.030) Urine Protein 30 mg/dl (Negative) mg/dL Urine Glucose (UA) Neg (Negative) mg/dL Urine Ketones 20 (Negative) mg/dL Urine Blood Sm (Negative) Urine Nitrite Neg (Negative) Ur Reducing Substances Not Reportable Urine Bilirubin Neg (Negative) Urine Ictotest Not Reportable Urine Urobilinogen 4.0 (<2.0) mg/dL Ur Leukocyte Esterase Tr (Negative) Urine WBC (Auto) 11.0 H (0.0-6.0) /HPF Urine RBC (Auto) 6.0 (0.0-6.0) /HPF U Epithel Cells (Auto) 3.0 (0-13.0) /HPF Urine Bacteria (Auto) 1+ (Negative) /HPF Urine Mucus 1+ /HPF Urine HCG, Qual Negative (Negative) VS normal as documented on admit by RN. labs noted ua noted- culture pending note pt on macrobid at home NS/ cefipime/ toradol IV while awaiting CT. 1640 sign out to Ketty JENNINGS- CT pending- they are several hours behind at this time. - Differential Diagnosis ro preg/uti/obstruction/gastritis/gastric ulcer/gerd ED Disposition Clinical Impression: Abdominal pain Qualifiers: Abdominal location: left upper quadrant Qualified Code(s): R10.12 - Left upper quadrant pain Disposition: HOME / SELF CARE / HOMELESS Is pt being admited?: No Does the pt Need Aspirin: No Condition: Stable Instructions: Abdominal Pain, Adult, [id number], Abdominal Pain (ED) Additional Instructions: Please stop taking Macrobid and begin taking Keflex. Please take medication as prescribed. Increase your fluid intake. Please follow the diet for acid reflux/ulcers. Follow-up with a GI doctor. Follow-up with your primary care doctor. Return to emergency room for any new or worsening symptoms. Prescriptions: Famotidine [Pepcid] 40 mg PO QHS #30 tablet Sucralfate [Carafate] 1 gm PO ACHS 7 Days #21 tablet cephALEXin [Keflex] 500 mg PO BID 7 Days #14 cap Referrals: [facility] [Provider Group] - 2-3 Days WENDY PENA MD [Staff Physician] - 2-3 Days Time of Disposition: 14:04 Print Language: TAJIK <KETTY GONZALEZ - Last Filed: 07/19/21 21:16> ED Review of Systems ROS: Stated complaint: UPPER ABD PAIN Other details as noted in HPI ED Course Vital Signs 07/19/21 07/19/21 13:56 18:59 Temperature 98.1 F Pulse Rate 98 H 91 H Respiratory 22 16 Rate Blood Pressure 176/123 Blood Pressure 145/103 [Right] O2 Sat by Pulse 100 99 Oximetry ED Medical Decision Making - Lab Data Result diagrams: 07/19/21 14:07 07/19/21 14:07 - Radiology Data Radiology results: report reviewed Ordering Physician: KYUNG OTERO Date of Service: 07/19/21 Procedure(s): CT abdomen pelvis w con Accession Number(s): [id number] cc: KYUNG OTERO CT ABDOMEN AND PELVIS WITH CONTRAST HISTORY: abd pain 100 ML OMNI 300 COMPARISON: None TECHNIQUE: Routine abdominal and pelvic CT exam performed following intravenous contrast administration.. All CT scans at this location are performed using CT dose reduction for ALARA by means of automated exposure control. FINDINGS: CT ABDOMEN: Lung Bases: No significant abnormality. Liver: No significant abnormality. Biliary: No significant abnormality. Spleen: No significant abnormality. Unenlarged. Pancreas: No significant abnormality. Adrenals: No significant abnormality. Kidneys: No significant abnormality. Lymphatics: No lymphadenopathy. Vasculature: Atherosclerotic but nonaneurysmal abdominal aorta. Bowel/Peritoneum: No significant abnormality. No free air. No free fluid. Normal appendix. CT PELVIC: : No significant abnormality. Lymphatics: No lymphadenopathy. Osseous Structures: No aggressive appearing osseous lesions. Additional Findings: None IMPRESSION: 1. No acute findings. No findings to explain the patient's symptoms. Signer Name: Tyler Ribeiro MD Signed: 07/19/2021 5:51 PM Workstation Name: [id number] Transcribed By: KARTHIK Dictated By: Tyler Ribeiro MD Electronically Authenticated By: Tyler Ribeiro MD Signed Date/Time: 07/19/211750 DD/ 48 TD/TT: Print - Medical Decision Making Resumed care of patient from [place], ELDA pending CT abd pelvis CT abdomen pelvis with IV contrast:1. No acute findings. No findings to explain the patient's symptoms. Vitals improved upon repeat. Patient's pain has improved. Labs are stable. Patient continues to have mild UTI despite Macrobid therapy, could represent Macrobid resistance, advised patient to discontinue Macrobid and will start Keflex. Symptoms could represent gastritis versus GERD versus PUD. Will be referred to outpatient GI. Discussed the importance of follow-up for reexamination. Discussed return precautions. Patient given prescription for medication. Advised patient Please stop taking Macrobid and begin taking Keflex. Please take medication as prescribed. Increase your fluid intake. Please follow the diet for acid reflux/ulcers. Follow-up with a GI doctor. Follow-up with your primary care doctor. Return to emergency room for any new or worsening symptoms. Critical care attestation.: If time is entered above; I have spent that time in minutes in the direct care of this critically ill patient, excluding procedure time. ED Disposition Is pt being admited?: No Does the pt Need Aspirin: No Time of Disposition: 18:12
[2021-07-19 14:46] LABS: Hematocrit 40.9 % (30.3-42.9); Hemoglobin 14.2 gm/dl (10.1-14.3); Mean Corpuscular HGB Conc 35 % (30-34); Mean Corpuscular Volume 101 fl (79-97); Platelet Count 213 K/mm3 (140-440); Red Blood Count 4.03 M/mm3 (3.65-5.03); Red Cell Distribution Width 13.5 % (13.2-15.2)
[2021-07-19 14:57] LABS: Alanine Aminotransferase 7 units/L (7-56); Albumin 4.4 g/dL (3.9-5); Blood Urea Nitrogen 9 mg/dL (7-17); Calcium 9.8 mg/dL (8.4-10.2); Hemolysis Index 5
[2021-07-19 15:05] LABS: BUN/Creatinine Ratio 18
[2021-07-19 15:34] LABS: HCG Qualitative,Urine Negative (Negative)
[2021-07-19 15:41] LABS: Bacteria,Urine 1+ /HPF (Negative); Bilirubin,Urine NEG (Negative); Blood,Urine SM (Negative); Color,Urine Yellow (Yellow); Mucus,Urine 1+ /HPF
[2021-07-19] MEDS ORDERED: SODIUM CHLORIDE 0.9% 1000 ML 1,000 ML IV ONE (16:15)
[2021-07-19] MEDS ORDERED: CEFEPIME/NS 2 GM/100 ML 2 GM/100 ML BAG IV ONE (16:16)
[2021-07-19] MEDS ORDERED: KETOROLAC 30 MG/1 ML INJ IV ONE (16:16)
[2021-07-19] MEDS ORDERED: PANTOPRAZOLE 40 MG INJ IV ONE (16:39)
[2021-07-19] MEDS ORDERED: POTASSIUM CHLORIDE ER 20 MEQ TAB PO ONE (16:54)
--- NOTE | 2021-07-19 17:55 | Cat Scan Report ---
CT ABDOMEN AND PELVIS WITH CONTRAST HISTORY: abd pain 100 ML OMNI 300 COMPARISON: None TECHNIQUE: Routine abdominal and pelvic CT exam performed following intravenous contrast administrat ion.. All CT scans at this location are performed using CT dose reduction for ALARA by means of autom ated exposure control. FINDINGS: CT ABDOMEN: Lung Bases: No significant abnormality. Liver: No significant abnormality. Biliary: No significant abnormality. Spleen: No significant abnormality. Unenlarged. Pancreas: No significant abnormality. Adrenals: No significant abnormality. Kidneys: No significant abnormality. Lymphatics: No lymphadenopathy. Vasculature: Atherosclerotic but nonaneurysmal abdominal aorta. Bowel/Peritoneum: No significant abnormality. No free air. No free fluid. Normal appendix. CT PELVIC: : No significant abnormality. Lymphatics: No lymphadenopathy. Osseous Structures: No aggressive appearing osseous lesions. Additional Findings: None IMPRESSION: 1. No acute findings. No findings to explain the patient's symptoms. Signer Name: Tyler Ribeiro MD Signed: 07/19/2021 5:51 PM Workstation Name: [id number]
[2021-07-19 19:00] VITALS: BP 145/103
== END 2021-07-19 19:00 | disposition home or self-care (01) ==
LOC: ED 13:49
DX: R10.12 Left upper quadrant pain (principal); I10 Essential (primary) hypertension; Z98.890 Other specified postprocedural states; Z79.899 Other long term (current) drug therapy
CPT/HCPCS: 36415; 74177; 80053; 81001; 81025; 83690; 83735; 84702; 85027; 87086; 96361; 96374; 99284; J1885; J7030; Q9967